=== PATIENT | male | born 1950 | race Caucasian/White ===

== ENCOUNTER 2018-06-25 02:51 | Inpatient (IN) ==
[2018-06-25] MEDS ORDERED: IOPAMIDOL 100 ML BOTTLE IV ONE (02:52)
[2018-06-25] MEDS ORDERED: ONDANSETRON 4 MG/2 ML VIAL IV ONE (03:21)
[2018-06-25 03:58] LABS: Basophils # (Auto) 0 K/mcL (0.0-0.3); Basophils % (Auto) 0.1 % (0.0-2.0); Eosinophils # (Auto) 0 K/mcL (0.0-0.7); Eosinophils % (Auto) 0 % (0.0-7.0); Granulocytes % (Auto) 86.7 % (38.0-78.0); Lymphocytes # (Auto) 1.3 K/mcL (1.5-4.8); Lymphocytes % (Auto) 6.5 % (15.5-49.0); Mean Corpuscular HGB Conc 33.4 g/dL (31.0-36.0); Monocytes # (Auto) 1.4 K/mcL (0.1-0.9); Monocytes % (Auto) 6.7 % (1.0-12.0); Platelet Count 210 K/mcL (140-440); RBC 4.96 M/mcL (4.50-5.90); Red Cell Distribution Width 13.9 % (11.5-14.5)
[2018-06-25] MEDS ORDERED: LACTATED RINGERS 1,000 ML IV ONE ×2 (04:03→05:41)
[2018-06-25 04:18] LABS: ALT/SGPT 32 U/l (0-40); Albumin 4.6 gm/dL (3.2-5.2); Albumin/Globulin Ratio 1.2 (1.0-2.3); Alkaline Phosphatase 69 U/L (39-117); Blood Urea Nitrogen 17 mg/dl (8-23)
[2018-06-25] MEDS ORDERED: PIPERACILLIN SODIUM/TAZOBACTAM 3.375 GM in DEXTROSE 5% IN WATER 50 ML IV ONE (05:25)
[2018-06-25] MEDS ORDERED: HYDROmorphone 2 MG/ML VIAL IV PRN ×3 (05:41→12:12)
--- NOTE | 2018-06-25 07:11 | Emergency Department Note ---
Abdominal Pain HPI - General Chief Complaint: Abdominal Pain Stated Complaint: abdominal pain Time Seen by Provider: 06/25/18 04:01 Source: patient Mode of arrival: ambulatory Limitations: no limitations - History of Present Illness HPI Narrative: This patient has had intermittent colicky right lower quadrant pain for the last couple of days. Last night it became constant and has increased in intensity. He does have appendicitis on his CT scan. Also a number of fecaliths seen in the area of the appendix. - Related Data Allergies Allergy/AdvReac Type Severity Reaction Status Date / Time No Known Drug Allergies Allergy Unverified 06/25/18 02:52 Review of Systems All systems ED: reviewed and negative except as stated. Abdominal Pain PMH - Past Medical History Medical history: Reports: no medical history Surgical history ED: Reports: orthopedic, other (Back surgery) - Social History Smoking status: Never smoker Physical Exam Limitations: no limitations General appearance: alert Head: atraumatic Eye: Present: normal appearance ENT: normal exam Neck: Present: normal inspection Chest: Present: normal inspection Respiratory: Present: normal lung sounds bilaterally Cardiovascular: Present: regular rate, normal rhythm, normal heart sounds Abdominal: Present: soft, tenderness. Absent: distention, guarding, rebound, rigidity Abdominal tenderness: Present: RLQ, moderate Neurological: Present: alert Psychiatric: Present: normal affect Skin: Present: warm, dry Course Vital Signs Temperature 97.4 F 06/25/18 02:52 Pulse Rate 121 H 06/25/18 02:52 Respiratory Rate 19 06/25/18 02:52 Blood Pressure 172/102 06/25/18 02:52 Pulse Oximetry (%) 96 06/25/18 02:52 Temperature 97.4 F 06/25/18 02:52 Pulse Rate 121 H 06/25/18 06:46 Respiratory Rate 26 H 06/25/18 06:46 Blood Pressure 146/77 06/25/18 06:46 Pulse Oximetry (%) 97 06/25/18 06:46 Abdominal Pain - MDM Narrative Medical decision making narrative: This patient has acute appendicitis on CT scan and will be admitted to the hospital for appendectomy. - Lab Data Lab results reviewed: Yes I reviewed the patient's lab results. Result diagrams: 06/25/18 03:25 06/25/18 03:25 Lab Results 06/25/18 06/25/18 Range/Units 03:25 03:25 WBC 20.6 H (4.5-11.0) K/mcL RBC 4.96 (4.50-5.90) M/mcL Hgb 14.9 (13.5-16.5) g/dL Hct 44.7 (41.0-55.0) % MCV 90.0 (80.0-100.0) fL MCH 30.0 (26.0-34.0) pg MCHC 33.4 (31.0-36.0) g/dL RDW 13.9 (11.5-14.5) % Plt Count 210 (140-440) K/mcL MPV 9.4 (7.4-10.4) fL Gran % 86.7 H (38.0-78.0) % Lymph % (Auto) 6.5 L (15.5-49.0) % Charlton % (Auto) 6.7 (1.0-12.0) % Eos % (Auto) 0 (0.0-7.0) % Baso % (Auto) 0.1 (0.0-2.0) % Gran # 17.9 H (1.8-8.0) K/mcL Lymph # (Auto) 1.3 L (1.5-4.8) K/mcL Charlton # (Auto) 1.4 H (0.1-0.9) K/mcL Eos # (Auto) 0 (0.0-0.7) K/mcL Baso # (Auto) 0 (0.0-0.3) K/mcL Sodium 133 (133-145) mmol/L Potassium 3.6 (3.3-5.1) mmol/L Chloride 93 L (96-108) mmol/L Carbon Dioxide 24 (22-30) mmol/L Anion Gap 16.0 (8-16) BUN 17 (8-23) mg/dl Creatinine 1.2 (0.7-1.2) mg/dl GFR Calculation 62 Glucose 230 H (70-105) mg/dL Calcium 9.8 (8.6-10.4) mg/dl Total Bilirubin 1.7 H (0.0-1.0) mg/dL AST 21 (0-37) U/l ALT 32 (0-40) U/l Alkaline Phosphatase 69 (39-117) U/L Total Protein 8.6 H (5.9-8.4) gm/dL Albumin 4.6 (3.2-5.2) gm/dL Globulin 4.0 H (2.2-3.7) gm/dL Albumin/Globulin Ratio 1.2 (1.0-2.3) - Radiology Data Radiology results reviewed: Yes I reviewed the patient's radiology results. Disposition Pt seen by FOOD SELECTOR/PA only: No Clinical Impression: Acute appendicitis Disposition: Xfer As Inpt ([facility]) Condition: Good Referrals: No,PCP [Primary Care Provider] - Time of Disposition: 07:13
--- NOTE | 2018-06-25 07:12 | Cat Scan Report ---
CLINICAL INFORMATION: Right lower quadrant pain COMPARISON: None. TECHNIQUE: Axial images were obtained through the abdomen and pelvis. Sagittally and coronally reformatted images. 80 mL contrast material injected intravenously. Oral contrast material was not given FINDINGS: Acute appendicitis. The appendix is enlarged and measures 18 mm in cross-sectional diameter. There is periappendiceal inflammatory change. There are appendicoliths. Largest appendicolith is at the appendiceal base and measures 9 mm. There are 4 smaller appendicoliths within the appendiceal lumen. There is no extraluminal gas. No definite mural dehiscence. There is no well-defined periappendiceal abscess. Lung bases are negative. No parenchymal consolidation. No pleural fluid. No pericardial fluid. There is dense coronary artery calcification. Low density liver consistent with fatty infiltration. There is a circumscribed 2 cm low-density abnormality in the caudal tip of the right lobe of the liver. This may be a cyst. Ultrasound may be helpful to exclude a solid lesion. No other focal intrahepatic abnormalities. Gallbladder is present. There are multiple calcified gallstones. No pericholecystic fluid. No gallbladder wall thickening. No dilated bile ducts. Negative pancreas. No pancreatic mass. No peripancreatic abnormality. Spleen is negative. No splenomegaly. Adrenal glands are negative. Kidneys are negative. No solid or cystic mass. No hydronephrosis. No hydroureter. There is calcification of the abdominal aorta. No abdominal aortic aneurysm. Lumbar spine, sacrum, pelvis are negative. There is a small right inguinal hernia containing mesenteric fat. Examination was initially interpreted by [facility] IMPRESSION: 1. Acute appendicitis with intraluminal appendicoliths. No periappendiceal abscess or extraluminal gas 2. Cholelithiasis 3. Low density abnormality in the caudal tip of the right lobe of the liver. Ultrasound recommended 4. Atherosclerotic coronary artery disease The exam was performed using radiation dose optimization techniques including, but not limited to, automated exposure control, adjustment of the mA and/or kV according to patient size and use of iterative reconstruction technique. Interpreted and Authenticated by: Wilfredo Anne 06/25/18
[2018-06-25] MEDS ORDERED: LACTATED RINGERS 1,000 ML IV SCH ×2 (07:15→12:15)
[2018-06-25] MEDS: 0.9 % SODIUM CHLORIDE 250 ML IV SCH ×2 (07:27→08:23)
--- NOTE | 2018-06-25 07:29 | General Surg History&Physical ---
History of Present Illness Patient information: Note initiated : 06/25/18 at 7:27 am Service Date, if different from initiated Date: [] Patient: Wesley Villeda a 67 y/o M admitted on for abdominal pain. Chief Complaint: [Abdominal pain] HPI: Mr. Villeda is a 67 year old M with 1 day history of right upper quadrant pain/ 8 -10/10, radiating diffusely in abdomen, associated with nausea and vomiting. first time episode. denies any other symptoms, meidical or surgical history. Review of Systems All systems PM: reviewed and no additional remarkable complaints except as stated (as per HPI) - Constitutional as per HPI - EENT Nose, mouth and throat: as per HPI Past History Past medical history: Denies past medical history Past surgical history: Denies past surgical history Past family history: unknown Past social history: Denies nicotine. lives alone Medications and Allergies Allergies Allergy/AdvReac Type Severity Reaction Status Date / Time No Known Drug Allergies Allergy Unverified 06/25/18 02:52 Exam Temp Pulse Resp BP Pulse Ox 97.4 F 121 H 26 H 146/77 97 06/25/18 02:52 06/25/18 06:46 06/25/18 06:46 06/25/18 06:46 06/25/18 06:46 - General physical appearance well developed, no distress - Eyes PERRL - ENT normal mucosa - Head Head exam IM: Present: atraumatic, normal inspection - Neck trachea midline - Cardiovascular Cardiovascular exam IM: Present: normal rate and rhythm - Respiratory clear to auscultation - Abdomen Abdomen: Present: tender (Distended, +rebound tenderness) Hernia: Present: none - Integumentary Present: no rash - Neurologic Present: normal sensation - Musculoskeletal Present: other (LE +2 pitting edema) - Psychiatric Present: oriented to time, oriented to person, oriented to place Results - Results CT scan - abdomen: image reviewed (Appendicitis with appendicolith, cystic like liver lesion official read pending) Assessment and Plan (1) Acute appendicitis Admit to surgical service for observation OR today for laparoscopic appendectomy NPO IVF ABX Status: Acute
[2018-06-25] MEDS ORDERED: 0.9 % SODIUM CHLORIDE 1,000 ML IV SCH (07:30)
[2018-06-25 08:27] LABS: Appearance,Urine CLEAR; Bilirubin,Urine NEG (NEG); Color,Urine YELLOW; Glucose,Urine (UA) 150 mg/dL (NEG); Leukocyte Esterase,Urine NEG /uL (NEG); Protein,Urine NEG (NEG); Specific Gravity,Urine 1.029 (1.000-1.035); Urine Blood NEG mg/dL (<0.03); Urobilinogen,Urine NEG (NEG)
[2018-06-25] MEDS ORDERED: FAMOTIDINE/PF 20 MG/2 ML VIAL IV SCH (09:00)
[2018-06-25] MEDS ORDERED: PHENYLEPHRINE 10 MG/ML VIAL ONE (11:45)
[2018-06-25] MEDS ORDERED: PROPOFOL 200 MG/20 ML VIAL IV ONE (11:45)
[2018-06-25] MEDS ORDERED: ONDANSETRON 4 MG/2 ML VIAL ONE (11:45)
[2018-06-25] MEDS ORDERED: ESMOLOL 100 MG/10 ML VIAL IV ONE (11:45)
[2018-06-25] MEDS ORDERED: NEOSTIGMINE 1 MG/ML VIAL ONE (11:45)
[2018-06-25] MEDS ORDERED: ROCURONIUM 10 MG/ML ML IV ONE (11:45)
[2018-06-25] MEDS ORDERED: HYDROmorphone 2 MG/ML VIAL ONE (11:45)
[2018-06-25] MEDS ORDERED: GLYCOPYRROLATE 0.2 MG/ML VIAL IV ONE (11:45)
[2018-06-25] MEDS ORDERED: LIDOCAINE HCL/PF 100 MG/5 ML SYRINGE IV ONE (11:45)
[2018-06-25] MEDS ORDERED: MIDAZOLAM 5 MG/5 ML VIAL ONE (11:45)
[2018-06-25] MEDS ORDERED: DEXAMETHASONE 10 MG/ML VIAL ONE (11:45)
[2018-06-25] MEDS ORDERED: fentaNYL 100 MCG/2 ML VIAL IV ONE (11:45)
[2018-06-25] MEDS ORDERED: PIPERACILLIN SODIUM/TAZOBACTAM 3.375 GM in DEXTROSE 5% IN WATER 50 ML IV SCH (12:00)
[2018-06-25] MEDS ORDERED: LACTATED RINGERS 250 ML IV PRN (12:12)
[2018-06-25] MEDS ORDERED: fentaNYL 100 MCG/2 ML VIAL IV PRN (12:12)
[2018-06-25] MEDS ORDERED: MEPERIDINE 50 MG/ML INJECTION IM PRN (12:12)
[2018-06-25] MEDS ORDERED: FLUMAZENIL 0.1 MG/ML ML IV PRN (12:12)
[2018-06-25] MEDS ORDERED: PROMETHAZINE 25 MG/ML VIAL IM PRN (12:12)
[2018-06-25] MEDS ORDERED: BENZOCAINE/MENTHOL 1 LOZENGE PO PRN (12:12)
[2018-06-25] MEDS ORDERED: NALOXONE HCL 0.4 MG/ML VIAL IV PRN (12:12)
[2018-06-25] MEDS ORDERED: MEPERIDINE 25 MG/ML SYRINGE IV PRN (12:12)
[2018-06-25] MEDS ORDERED: ACETAMINOPHEN 1,000 MG/100 ML BOTTLE IV ONE (12:12)
[2018-06-25] MEDS ORDERED: IPRATROPIUM/ALBUTEROL 3 ML AMPUL.NEB NEB PRN (12:12)
[2018-06-25] MEDS ORDERED: ONDANSETRON 4 MG/2 ML VIAL IV PRN (12:12)
[2018-06-25] MEDS ORDERED: BUPIVACAINE W/EPI 0.25% 50 ML VIAL IJ ONE (12:34)
--- NOTE | 2018-06-25 13:39 | Brief Operative Note ---
Date of procedure: 06/25/18 Pre-op diagnosis: Acute appendicitis Post-op diagnosis: other (perforated appendicitis with generalized peritonitis) Procedure: Laparoscopic Appendectomy Grafts/Implants: No Anesthesia: GETA Findings: Perforated appendicitis with generalized peritonitis Complications: none Surgeon: Luís Haley Mammography Technologist: PCP No Estimated blood loss (cc): 20 Specimens Removed/Pathology: other (Appendix, intraabdominal fluid culture) Condition: other (guarded) Disposition: PACU
[2018-06-25] MEDS ORDERED: 0.9 % SODIUM CHLORIDE 10 ML SYRINGE IV SCH (14:00)
[2018-06-25] MEDS: LACTATED RINGERS 1,000 ML IV SCH (14:59)
[2018-06-25] MEDS ORDERED: DEXTROSE 50% 50 ML VIAL IV PRN (15:11)
[2018-06-25] MEDS ORDERED: DEXTROSE 31 GM ORAL.SUSP PO PRN (15:11)
[2018-06-25 15:45] LABS: Hemoglobin A1C 5.4 % HGB (4.0-6.0)
[2018-06-25] MEDS: PIPERACILLIN SODIUM/TAZOBACTAM 3.375 GM in DEXTROSE 5% IN WATER 50 ML IV SCH (17:14)
[2018-06-25] MEDS: INSULIN LISPRO 1 UNIT/0.01 ML UNIT SQ SCH (17:20)
[2018-06-25] MEDS ORDERED: ENOXAPARIN 40 MG/0.4 ML SYRINGE SQ SCH (21:00)
[2018-06-25] MEDS: ENOXAPARIN 40 MG/0.4 ML SYRINGE SQ SCH (21:15)
[2018-06-25] MEDS: FAMOTIDINE/PF 20 MG/2 ML VIAL IV SCH (21:15)
[2018-06-25] MEDS: ACETAMINOPHEN 1,000 MG/100 ML BOTTLE IV SCH (21:16)
[2018-06-25] MEDS: 0.9 % SODIUM CHLORIDE 10 ML SYRINGE IV SCH (22:14)
[2018-06-26] MEDS: PIPERACILLIN SODIUM/TAZOBACTAM 3.375 GM in DEXTROSE 5% IN WATER 50 ML IV SCH ×4 (00:18→17:19)
[2018-06-26] MEDS: LACTATED RINGERS 1,000 ML IV SCH ×3 (00:18→22:06)
[2018-06-26] MEDS: INSULIN LISPRO 1 UNIT/0.01 ML UNIT SQ SCH ×5 (00:24→21:45)
[2018-06-26] MEDS: HYDROmorphone 2 MG/ML VIAL IV PRN ×3 (03:37→19:59)
[2018-06-26] MEDS: 0.9 % SODIUM CHLORIDE 10 ML SYRINGE IV SCH ×3 (05:32→21:48)
[2018-06-26 06:32] LABS: Basophils # (Auto) 0 K/mcL (0.0-0.3); Basophils % (Auto) 0 % (0.0-2.0); Eosinophils # (Auto) 0 K/mcL (0.0-0.7); Eosinophils % (Auto) 0 % (0.0-7.0); Granulocytes % (Auto) 88.3 % (38.0-78.0); Lymphocytes # (Auto) 0.6 K/mcL (1.5-4.8); Lymphocytes % (Auto) 5.2 % (15.5-49.0); Mean Cell Volume 90.6 fL (80.0-100.0); Mean Corpuscular HGB Conc 33.5 g/dL (31.0-36.0); Monocytes # (Auto) 0.8 K/mcL (0.1-0.9); Monocytes % (Auto) 6.5 % (1.0-12.0); Platelet Count 137 K/mcL (140-440); RBC 4.07 M/mcL (4.50-5.90); Red Cell Distribution Width 14.2 % (11.5-14.5)
[2018-06-26 06:58] LABS: ALT/SGPT 19 U/l (0-40); Albumin 3.2 gm/dL (3.2-5.2); Albumin/Globulin Ratio 0.9 (1.0-2.3); Alkaline Phosphatase 49 U/L (39-117); Blood Urea Nitrogen 14 mg/dl (8-23)
[2018-06-26] MEDS ORDERED: oxyCODONE/APAP 5/325MG TABLET PO PRN (07:40)
--- NOTE | 2018-06-26 08:34 | General Surgery Progress Note ---
Subjective Patient reports: no new complaints (Patient seen post op doing well. Fever decreased to 99.4F, good urine output) Narrative: Note initiated : 06/26/18 at 8:31 am Service Date, if different from initiated Date: [] Patient: Wesley Villeda 67 y/o M admitted on 06/25/18 for Laparoscopic Appendectomy Possible Open. Chief Complaint: Abdominal pain Postop Day#0 Pertinent ROS: Pain well controlled, no n/v Objective Temp Pulse Resp BP Pulse Ox 98.6 F 75 18 136/79 92 06/26/18 07:06 06/26/18 03:42 06/26/18 07:06 06/26/18 07:06 06/26/18 07:06 - Additional Data Intake & Output - Last 24 hours: Intake & Output 06/24/18 06/25/18 06/26/18 06/27/18 05:59 05:59 05:59 05:59 Intake Total 1000 / 1000 4980 / 4980 Output Total 3940 / 3940 Balance 1000 / 1000 1040 / 1040 Weight 236 lb 225 lb - General physical appearance well developed, well nourished, no distress - ENT no congestion - Neck trachea midline - Respiratory clear to auscultation - Cardiovascular Cardiovascular exam: Present: normal rate and rhythm - Abdomen soft (Appropriate TTP at surgical sites. CECILIA drain with serosanguenous output) - Integumentary no rash - Neurologic normal sensation - Additional Exam B/L LE etremity edema +2 ankles - Labs 06/26/18 04:43 06/26/18 04:43 Diabetes panel 06/25/18 06/26/18 Range/Units 03:25 04:43 Sodium 141 (133-145) mmol/L Potassium 4.2 (3.3-5.1) mmol/L Chloride 107 (96-108) mmol/L Carbon Dioxide 26 (22-30) mmol/L BUN 14 (8-23) mg/dl Creatinine 1.1 (0.7-1.2) mg/dl Glucose 160 H (70-105) mg/dL Hemoglobin A1c 5.4 (4.0-6.0) % HGB Calcium 8.9 (8.6-10.4) mg/dl AST 14 (0-37) U/l ALT 19 (0-40) U/l Alkaline Phosphatase 49 (39-117) U/L Total Protein 6.6 (5.9-8.4) gm/dL Albumin 3.2 (3.2-5.2) gm/dL Calcium panel 06/26/18 Range/Units 04:43 Calcium 8.9 (8.6-10.4) mg/dl Phosphorus 2.0 L (2.7-4.5) mg/dL Albumin 3.2 (3.2-5.2) gm/dL Pituitary panel 06/26/18 Range/Units 04:43 Sodium 141 (133-145) mmol/L Potassium 4.2 (3.3-5.1) mmol/L Chloride 107 (96-108) mmol/L Carbon Dioxide 26 (22-30) mmol/L BUN 14 (8-23) mg/dl Creatinine 1.1 (0.7-1.2) mg/dl Glucose 160 H (70-105) mg/dL Calcium 8.9 (8.6-10.4) mg/dl Adrenal panel 06/26/18 Range/Units 04:43 Sodium 141 (133-145) mmol/L Potassium 4.2 (3.3-5.1) mmol/L Chloride 107 (96-108) mmol/L Carbon Dioxide 26 (22-30) mmol/L BUN 14 (8-23) mg/dl Creatinine 1.1 (0.7-1.2) mg/dl Glucose 160 H (70-105) mg/dL Calcium 8.9 (8.6-10.4) mg/dl Total Bilirubin 1.1 H (0.0-1.0) mg/dL AST 14 (0-37) U/l ALT 19 (0-40) U/l Alkaline Phosphatase 49 (39-117) U/L Total Protein 6.6 (5.9-8.4) gm/dL Albumin 3.2 (3.2-5.2) gm/dL Assessment and Plan (1) Acute appendicitis with perforation and generalized peritonitis Status: Acute Current Visit: Yes (2) Acute appendicitis Status: Acute Current Visit: Yes - Narrative A/P Narrative: 67 yo male POD#0 for laparoscopic appendectomy for perforated appendicitis with generalized peritonitis. Admit to surgical service NPO today Continue IV ABX IV fluids Hogue for hemodynamic monitoring DVT prophylaxis Am labs - Time Spent With Patient Total time spent is greater than 50% in coordination of care (as documented) at patient's floor/unit and/or counseling patient:
--- NOTE | 2018-06-26 08:42 | General Surgery Progress Note ---
Subjective Patient reports: no new complaints Narrative: Note initiated : 06/26/18 at 8:40 am Service Date, if different from initiated Date: [] Patient: Wesley Villeda 67 y/o M admitted on 06/25/18 for acute appendicitis POD#1 for laparoscopic appendectomy Pertinent ROS: Denies N/V/D, no F/C/NS, denies SOB, abdominal pain improved from yesterday. Objective Temp Pulse Resp BP Pulse Ox 98.6 F 75 18 136/79 92 06/26/18 07:06 06/26/18 03:42 06/26/18 07:06 06/26/18 07:06 06/26/18 07:06 - Additional Data Intake & Output - Last 24 hours: Intake & Output 06/24/18 06/25/18 06/26/18 06/27/18 05:59 05:59 05:59 05:59 Intake Total 1000 / 1000 4980 / 4980 Output Total 3940 / 3940 Balance 1000 / 1000 1040 / 1040 Weight 236 lb 225 lb - General physical appearance well developed, well nourished, no distress - Eyes normal ocular movement - ENT normal mucosa - Neck trachea midline - Respiratory clear to auscultation - Cardiovascular Cardiovascular exam: Present: normal rate and rhythm - Abdomen soft (+BS, soft, appropriate TTP at surgical site. CECILIA drain serosanguenous output.) - Genitourinary normal penis with no external lesions - Integumentary no rash - Additional Exam Lower Extremities: B/L LE EDEMA ankles B/L, non tender calves - Labs 06/26/18 04:43 06/26/18 04:43 Diabetes panel 06/25/18 06/26/18 Range/Units 03:25 04:43 Sodium 141 (133-145) mmol/L Potassium 4.2 (3.3-5.1) mmol/L Chloride 107 (96-108) mmol/L Carbon Dioxide 26 (22-30) mmol/L BUN 14 (8-23) mg/dl Creatinine 1.1 (0.7-1.2) mg/dl Glucose 160 H (70-105) mg/dL Hemoglobin A1c 5.4 (4.0-6.0) % HGB Calcium 8.9 (8.6-10.4) mg/dl AST 14 (0-37) U/l ALT 19 (0-40) U/l Alkaline Phosphatase 49 (39-117) U/L Total Protein 6.6 (5.9-8.4) gm/dL Albumin 3.2 (3.2-5.2) gm/dL Calcium panel 06/26/18 Range/Units 04:43 Calcium 8.9 (8.6-10.4) mg/dl Phosphorus 2.0 L (2.7-4.5) mg/dL Albumin 3.2 (3.2-5.2) gm/dL Pituitary panel 06/26/18 Range/Units 04:43 Sodium 141 (133-145) mmol/L Potassium 4.2 (3.3-5.1) mmol/L Chloride 107 (96-108) mmol/L Carbon Dioxide 26 (22-30) mmol/L BUN 14 (8-23) mg/dl Creatinine 1.1 (0.7-1.2) mg/dl Glucose 160 H (70-105) mg/dL Calcium 8.9 (8.6-10.4) mg/dl Adrenal panel 06/26/18 Range/Units 04:43 Sodium 141 (133-145) mmol/L Potassium 4.2 (3.3-5.1) mmol/L Chloride 107 (96-108) mmol/L Carbon Dioxide 26 (22-30) mmol/L BUN 14 (8-23) mg/dl Creatinine 1.1 (0.7-1.2) mg/dl Glucose 160 H (70-105) mg/dL Calcium 8.9 (8.6-10.4) mg/dl Total Bilirubin 1.1 H (0.0-1.0) mg/dL AST 14 (0-37) U/l ALT 19 (0-40) U/l Alkaline Phosphatase 49 (39-117) U/L Total Protein 6.6 (5.9-8.4) gm/dL Albumin 3.2 (3.2-5.2) gm/dL Assessment and Plan (1) Acute appendicitis with perforation and generalized peritonitis Status: Acute Current Visit: Yes (2) Acute appendicitis Status: Acute Current Visit: Yes - Narrative A/P Narrative: 67 yo male POD#1 for laparoscopic appendectomy for perforated appendicitis with generalized peritonitis. Clears today Continue Incentive spirometry Continue IV ABX continue CECILIA drain D/C carrion Am labs DVT prophylaxis ambulate as tolerated - Time Spent With Patient Total time spent is greater than 50% in coordination of care (as documented) at patient's floor/unit and/or counseling patient:
[2018-06-26] MEDS: ACETAMINOPHEN 1,000 MG/100 ML BOTTLE IV SCH ×2 (08:57→21:47)
[2018-06-26] MEDS: NEUTRA PHOS 1 PACKET PO SCH ×2 (08:57→22:07)
[2018-06-26] MEDS: FAMOTIDINE/PF 20 MG/2 ML VIAL IV SCH ×2 (08:57→21:46)
[2018-06-26] MEDS: ENOXAPARIN 40 MG/0.4 ML SYRINGE SQ SCH (08:59)
[2018-06-26] MEDS ORDERED: PNEUMOCOCCAL 23-VAL P-SAC VAC 0.5 ML SYRINGE IM ONE (10:00)
--- NOTE | 2018-06-26 11:08 | Surgical Pathology Report ---
HISTOLOGY SPECIMEN MICROSCOPIC DIAGNOSIS APPENDIX, APPENDECTOMY: -- PERFORATED ACUTE APPENDICITIS WITH SEROSITIS. (DMT:adj) PROCEDURAL IMPRESSION Appendicitis with appendicolith. GROSS DESCRIPTION Received in formalin labeled appendix, is a red-wick appendix, which measures up to 1.2 cm in diameter and 8 cm long with attached wick adipose tissue up to 2.5 cm wide. A section through the tip reveals fibrinopurulent material. 5.5 cm from the resection margin, is an area of disruption, which may represent an area of perforation, this ragged defect is 0.8 cm long. There are also small amounts of dark red-brown blood within the lumen. [employer] sections - one cassette. (RAD:ramya) Electronically Signed by: Nikolas Peterson M.D.
[2018-06-26] MEDS ORDERED: ONDANSETRON 4 MG/2 ML VIAL ONE (14:19)
--- NOTE | 2018-06-26 14:44 | General Surgery Progress Note ---
Subjective Patient reports: pain is less (Patient seen at bedside. Hogue removed earlier has not voided yet. Pain mostly under control. Fluid leaking around CECILIA drain. serosanguenous) Narrative: Note initiated : 06/26/18 at 2:42 pm Service Date, if different from initiated Date: [] Patient: Wesley Villeda 67 y/o M admitted on 06/25/18 for Laparoscopic Appendectomy Possible Open. Chief Complaint: [] Pertinent ROS: + Nausea, no vomiting. Denies F/C/NS, minimal abdominal pain Objective Temp Pulse Resp BP Pulse Ox 98.3 F 95 H 20 146/84 94 06/26/18 12:00 06/26/18 12:00 06/26/18 12:00 06/26/18 12:00 06/26/18 12:00 - Additional Data Intake & Output - Last 24 hours: Intake & Output 06/24/18 06/25/18 06/26/18 06/27/18 05:59 05:59 05:59 05:59 Intake Total 1000 / 1000 5080 / 5080 1200 / 1200 Output Total 3940 / 3940 250 / 250 Balance 1000 / 1000 1140 / 1140 950 / 950 Weight 236 lb 225 lb 225 lb - General physical appearance well nourished, no distress - Respiratory normal respiratory effort, clear to auscultation - Cardiovascular Cardiovascular exam: Present: normal rate and rhythm - Abdomen soft (Distended, appropriated post op tenderness. No rebound or guarding. CECILIA drain milked. Serosanguenous output around dressing.) - Labs 06/26/18 04:43 06/26/18 04:43 Diabetes panel 06/25/18 06/26/18 Range/Units 03:25 04:43 Sodium 141 (133-145) mmol/L Potassium 4.2 (3.3-5.1) mmol/L Chloride 107 (96-108) mmol/L Carbon Dioxide 26 (22-30) mmol/L BUN 14 (8-23) mg/dl Creatinine 1.1 (0.7-1.2) mg/dl Glucose 160 H (70-105) mg/dL Hemoglobin A1c 5.4 (4.0-6.0) % HGB Calcium 8.9 (8.6-10.4) mg/dl AST 14 (0-37) U/l ALT 19 (0-40) U/l Alkaline Phosphatase 49 (39-117) U/L Total Protein 6.6 (5.9-8.4) gm/dL Albumin 3.2 (3.2-5.2) gm/dL Calcium panel 06/26/18 Range/Units 04:43 Calcium 8.9 (8.6-10.4) mg/dl Phosphorus 2.0 L (2.7-4.5) mg/dL Albumin 3.2 (3.2-5.2) gm/dL Pituitary panel 06/26/18 Range/Units 04:43 Sodium 141 (133-145) mmol/L Potassium 4.2 (3.3-5.1) mmol/L Chloride 107 (96-108) mmol/L Carbon Dioxide 26 (22-30) mmol/L BUN 14 (8-23) mg/dl Creatinine 1.1 (0.7-1.2) mg/dl Glucose 160 H (70-105) mg/dL Calcium 8.9 (8.6-10.4) mg/dl Adrenal panel 06/26/18 Range/Units 04:43 Sodium 141 (133-145) mmol/L Potassium 4.2 (3.3-5.1) mmol/L Chloride 107 (96-108) mmol/L Carbon Dioxide 26 (22-30) mmol/L BUN 14 (8-23) mg/dl Creatinine 1.1 (0.7-1.2) mg/dl Glucose 160 H (70-105) mg/dL Calcium 8.9 (8.6-10.4) mg/dl Total Bilirubin 1.1 H (0.0-1.0) mg/dL AST 14 (0-37) U/l ALT 19 (0-40) U/l Alkaline Phosphatase 49 (39-117) U/L Total Protein 6.6 (5.9-8.4) gm/dL Albumin 3.2 (3.2-5.2) gm/dL Assessment and Plan (1) Acute appendicitis with perforation and generalized peritonitis Status: Acute Current Visit: Yes (2) Acute appendicitis Status: Acute Current Visit: Yes - Narrative A/P Narrative: 67 yo male POD#1 for laparoscopic appendectomy for perforated appendicitis with generalized peritonitis. Will make NPO except meds/ ice chips Continue Incentive spirometry Continue IV ABX continue CECILIA drain Hogue replace if has not voided within 8 hours post removal Echo for fluid status and EF. Am labs DVT prophylaxis ambulate as tolerated - Time Spent With Patient Total time spent is greater than 50% in coordination of care (as documented) at patient's floor/unit and/or counseling patient:
[2018-06-26] MEDS: METOCLOPRAMIDE 10 MG/2 ML VIAL IV SCH ×2 (15:05→21:46)
[2018-06-26] MEDS ORDERED: hydrALAZINE 20 MG/ML VIAL IV PRN (18:36)
[2018-06-26] MEDS ORDERED: 0.9 % SODIUM CHLORIDE 500 ML IV ONE (18:38)
--- NOTE | 2018-06-26 18:43 | General Surgery Progress Note ---
Subjective Patient reports: other (Patient did not void within 8 hours of removing carrion so carrion placed. Patient states pain around a 5/10 no other events reported.) Narrative: Note initiated : 06/26/18 at 6:40 pm Service Date, if different from initiated Date: [] Patient: Wesley Villeda 67 y/o M admitted on 06/25/18 for Laparoscopic Appendectomy Possible Open. Chief Complaint: [] Objective Temp Pulse Resp BP Pulse Ox 98.5 F 95 H 20 162/92 93 06/26/18 16:00 06/26/18 12:00 06/26/18 16:00 06/26/18 16:00 06/26/18 16:00 - Additional Data Intake & Output - Last 24 hours: Intake & Output 06/24/18 06/25/18 06/26/18 06/27/18 05:59 05:59 05:59 05:59 Intake Total 1000 / 1000 5080 / 5080 1475 / 1475 Output Total 3940 / 3940 270 / 270 Balance 1000 / 1000 1140 / 1140 1205 / 1205 Weight 236 lb 225 lb 225 lb - General physical appearance well developed, well nourished, no distress - Neck trachea midline - Respiratory normal expansion - Cardiovascular Cardiovascular exam: Present: normal rate and rhythm - Abdomen soft (TTP appropriate. no rebound or guarding. CECILIA in place. Carrion in place.) - Labs 06/26/18 04:43 06/26/18 04:43 Diabetes panel 06/26/18 Range/Units 04:43 Sodium 141 (133-145) mmol/L Potassium 4.2 (3.3-5.1) mmol/L Chloride 107 (96-108) mmol/L Carbon Dioxide 26 (22-30) mmol/L BUN 14 (8-23) mg/dl Creatinine 1.1 (0.7-1.2) mg/dl Glucose 160 H (70-105) mg/dL Calcium 8.9 (8.6-10.4) mg/dl AST 14 (0-37) U/l ALT 19 (0-40) U/l Alkaline Phosphatase 49 (39-117) U/L Total Protein 6.6 (5.9-8.4) gm/dL Albumin 3.2 (3.2-5.2) gm/dL Calcium panel 06/26/18 Range/Units 04:43 Calcium 8.9 (8.6-10.4) mg/dl Phosphorus 2.0 L (2.7-4.5) mg/dL Albumin 3.2 (3.2-5.2) gm/dL Pituitary panel 06/26/18 Range/Units 04:43 Sodium 141 (133-145) mmol/L Potassium 4.2 (3.3-5.1) mmol/L Chloride 107 (96-108) mmol/L Carbon Dioxide 26 (22-30) mmol/L BUN 14 (8-23) mg/dl Creatinine 1.1 (0.7-1.2) mg/dl Glucose 160 H (70-105) mg/dL Calcium 8.9 (8.6-10.4) mg/dl Adrenal panel 06/26/18 Range/Units 04:43 Sodium 141 (133-145) mmol/L Potassium 4.2 (3.3-5.1) mmol/L Chloride 107 (96-108) mmol/L Carbon Dioxide 26 (22-30) mmol/L BUN 14 (8-23) mg/dl Creatinine 1.1 (0.7-1.2) mg/dl Glucose 160 H (70-105) mg/dL Calcium 8.9 (8.6-10.4) mg/dl Total Bilirubin 1.1 H (0.0-1.0) mg/dL AST 14 (0-37) U/l ALT 19 (0-40) U/l Alkaline Phosphatase 49 (39-117) U/L Total Protein 6.6 (5.9-8.4) gm/dL Albumin 3.2 (3.2-5.2) gm/dL Assessment and Plan (1) Acute appendicitis with perforation and generalized peritonitis Status: Acute Current Visit: Yes (2) Acute appendicitis Status: Acute Current Visit: Yes - Narrative A/P Narrative: 67 yo male POD#1 for laparoscopic appendectomy for perforated appendicitis with generalized peritonitis. Continue NPO except meds/ ice chips Continue Incentive spirometry Continue IV ABX continue CECILIA drain Carrion replaced for hemodynamic monitoring and possible urinary retention Echo official report to follow prelim EF 55% will add toradol for pain Hydralazine prn Am labs DVT prophylaxis ambulate as tolerated - Time Spent With Patient Total time spent is greater than 50% in coordination of care (as documented) at patient's floor/unit and/or counseling patient:
[2018-06-26] MEDS: ONDANSETRON 4 MG/2 ML VIAL IV PRN (20:21)
[2018-06-26] MEDS: KETOROLAC 15 MG/ML VIAL IV SCH (21:45)
[2018-06-27] MEDS: PIPERACILLIN SODIUM/TAZOBACTAM 3.375 GM in DEXTROSE 5% IN WATER 50 ML IV SCH ×5 (00:02→23:39)
[2018-06-27] MEDS: LACTATED RINGERS 1,000 ML IV SCH ×2 (00:44→08:16)
[2018-06-27] MEDS: HYDROmorphone 2 MG/ML VIAL IV PRN ×2 (04:23→20:13)
[2018-06-27] MEDS: ONDANSETRON 4 MG/2 ML VIAL IV PRN (04:23)
[2018-06-27 05:33] LABS: Basophils # (Auto) 0 K/mcL (0.0-0.3); Basophils % (Auto) 0.3 % (0.0-2.0); Eosinophils # (Auto) 0 K/mcL (0.0-0.7); Eosinophils % (Auto) 0.2 % (0.0-7.0); Granulocytes % (Auto) 87.1 % (38.0-78.0); Lymphocytes # (Auto) 0.9 K/mcL (1.5-4.8); Lymphocytes % (Auto) 7.3 % (15.5-49.0); Mean Cell Volume 91.5 fL (80.0-100.0); Mean Corpuscular HGB Conc 33.3 g/dL (31.0-36.0); Monocytes # (Auto) 0.6 K/mcL (0.1-0.9); Monocytes % (Auto) 5.1 % (1.0-12.0); Platelet Count 176 K/mcL (140-440); RBC 4.66 M/mcL (4.50-5.90); Red Cell Distribution Width 14.3 % (11.5-14.5)
[2018-06-27] MEDS: METOCLOPRAMIDE 10 MG/2 ML VIAL IV SCH ×3 (05:55→22:20)
[2018-06-27] MEDS: KETOROLAC 15 MG/ML VIAL IV SCH ×3 (05:55→22:19)
[2018-06-27 06:00] LABS: ALT/SGPT 18 U/l (0-40); Albumin 3.4 gm/dL (3.2-5.2); Albumin/Globulin Ratio 0.9 (1.0-2.3); Alkaline Phosphatase 56 U/L (39-117); Blood Urea Nitrogen 24 mg/dl (8-23)
[2018-06-27] MEDS: 0.9 % SODIUM CHLORIDE 10 ML SYRINGE IV SCH ×3 (06:26→22:20)
[2018-06-27] MEDS: INSULIN LISPRO 1 UNIT/0.01 ML UNIT SQ SCH ×4 (06:33→20:12)
[2018-06-27] MEDS ORDERED: 0.9 % SODIUM CHLORIDE 500 ML IV ONE (07:51)
[2018-06-27] MEDS: ENOXAPARIN 40 MG/0.4 ML SYRINGE SQ SCH (08:14)
[2018-06-27] MEDS: FAMOTIDINE/PF 20 MG/2 ML VIAL IV SCH ×2 (08:14→20:13)
[2018-06-27] MEDS: NEUTRA PHOS 1 PACKET PO SCH ×2 (08:19→20:12)
--- NOTE | 2018-06-27 08:27 | General Surgery Progress Note ---
Subjective Patient reports: pain is less (Patient states vomited yesterday none today. No nausea today. No Flatus. Hogue with adequate output ~50mL/kg/hr. SUSIE drain site leaking around susie. no other events reported.) Narrative: Note initiated : 06/27/18 at 8:24 am Service Date, if different from initiated Date: [] 67 yo male POD#2 for laparoscopic appendectomy for perforated appendicitis with generalized peritonitis. Chief Complaint: [] Pertinent ROS: no current N/V/D, no F/C/NS Objective Temp Pulse Resp BP Pulse Ox 99 F 90 18 134/79 96 06/27/18 04:00 06/27/18 04:00 06/27/18 04:00 06/27/18 04:00 06/27/18 04:00 - Additional Data Intake & Output - Last 24 hours: Intake & Output 06/25/18 06/26/18 06/27/18 06/28/18 05:59 05:59 05:59 05:59 Intake Total 1000 / 1000 5080 / 5080 2855 / 2855 1650 / 1650 Output Total 3940 / 3940 1000 / 1000 Balance 1000 / 1000 1140 / 1140 1855 / 1855 1650 / 1650 Weight 236 lb 225 lb 238 lb - General physical appearance well developed, no distress - Respiratory clear to auscultation - Cardiovascular Cardiovascular exam: Present: normal rate and rhythm - Abdomen soft, non tender (Soft, NT, distended, no rebound or guarding. SUSIE with protective ostomy bag over it with serous drainage. Hogue with barboza urine) - Integumentary no rash - Psychiatric oriented to time, oriented to person, oriented to place - Additional Exam LE; B/L LE edema +2 unchanged from previous - Labs 06/27/18 04:38 06/27/18 04:38 Diabetes panel 06/27/18 Range/Units 04:38 Sodium 139 (133-145) mmol/L Potassium 3.9 (3.3-5.1) mmol/L Chloride 101 (96-108) mmol/L Carbon Dioxide 27 (22-30) mmol/L BUN 24 H (8-23) mg/dl Creatinine 1.2 (0.7-1.2) mg/dl Glucose 169 H (70-105) mg/dL Calcium 9.2 (8.6-10.4) mg/dl AST 14 (0-37) U/l ALT 18 (0-40) U/l Alkaline Phosphatase 56 (39-117) U/L Total Protein 7.3 (5.9-8.4) gm/dL Albumin 3.4 (3.2-5.2) gm/dL Calcium panel 06/27/18 Range/Units 04:38 Calcium 9.2 (8.6-10.4) mg/dl Phosphorus 2.0 L (2.7-4.5) mg/dL Albumin 3.4 (3.2-5.2) gm/dL Pituitary panel 06/27/18 Range/Units 04:38 Sodium 139 (133-145) mmol/L Potassium 3.9 (3.3-5.1) mmol/L Chloride 101 (96-108) mmol/L Carbon Dioxide 27 (22-30) mmol/L BUN 24 H (8-23) mg/dl Creatinine 1.2 (0.7-1.2) mg/dl Glucose 169 H (70-105) mg/dL Calcium 9.2 (8.6-10.4) mg/dl Adrenal panel 06/27/18 Range/Units 04:38 Sodium 139 (133-145) mmol/L Potassium 3.9 (3.3-5.1) mmol/L Chloride 101 (96-108) mmol/L Carbon Dioxide 27 (22-30) mmol/L BUN 24 H (8-23) mg/dl Creatinine 1.2 (0.7-1.2) mg/dl Glucose 169 H (70-105) mg/dL Calcium 9.2 (8.6-10.4) mg/dl Total Bilirubin 0.8 (0.0-1.0) mg/dL AST 14 (0-37) U/l ALT 18 (0-40) U/l Alkaline Phosphatase 56 (39-117) U/L Total Protein 7.3 (5.9-8.4) gm/dL Albumin 3.4 (3.2-5.2) gm/dL Assessment and Plan (1) Acute appendicitis with perforation and generalized peritonitis Status: Acute Current Visit: Yes (2) Acute appendicitis Status: Acute Current Visit: Yes - Narrative A/P Narrative: 67 yo male POD#2 for laparoscopic appendectomy for perforated appendicitis with generalized peritonitis. Continue NPO except meds/ ice chips Continue Incentive spirometry Continue IV ABX Continue SUSIE drain Continue Hogue for hemodynamic monitoring and possible urinary retention DVT prophylaxis ambulate as tolerated PT eval appreciated. Social work planning Am labs - Time Spent With Patient Total time spent is greater than 50% in coordination of care (as documented) at patient's floor/unit and/or counseling patient:
[2018-06-27] MEDS: DEXTROSE 5%-1/2NS W/10MEQ KCL 1,000 ML IV SCH ×4 (08:47→23:34)
[2018-06-27] MEDS: ACETAMINOPHEN 1,000 MG/100 ML BOTTLE IV SCH (08:47)
--- NOTE | 2018-06-27 20:55 | General Surgery Progress Note ---
Subjective Narrative: Note initiated : 06/27/18 at 8:53 pm Service Date, if different from initiated Date: [] Patient: 67 yo male POD#2 for laparoscopic appendectomy for perforated appendicitis with generalized peritonitis. Pertinent ROS: + mild SOB and B/L leg pain, no F/C/NS, no chest pain Objective Temp Pulse Resp BP Pulse Ox 97.9 F 95 H 16 144/92 92 06/27/18 19:31 06/27/18 19:31 06/27/18 19:31 06/27/18 19:31 06/27/18 19:34 - Additional Data Intake & Output - Last 24 hours: Intake & Output 06/25/18 06/26/18 06/27/18 06/28/18 05:59 05:59 05:59 05:59 Intake Total 1000 / 1000 5080 / 5080 2855 / 2855 3480 / 3480 Output Total 3940 / 3940 1000 / 1000 600 / 600 Balance 1000 / 1000 1140 / 1140 1855 / 1855 2880 / 2880 Weight 236 lb 225 lb 238 lb 231 lb - General physical appearance no distress, severe distress - Neck trachea midline - Respiratory clear to auscultation - Cardiovascular Cardiovascular exam: Present: normal rate and rhythm - Abdomen soft (Distended, nontender, no rebound or guarding. CECILIA drain with serous fluid. Hogue with yellow urine) - Additional Exam B/L LE calf tenderness upon palpation - Labs 06/27/18 04:38 06/27/18 04:38 Diabetes panel 06/27/18 Range/Units 04:38 Sodium 139 (133-145) mmol/L Potassium 3.9 (3.3-5.1) mmol/L Chloride 101 (96-108) mmol/L Carbon Dioxide 27 (22-30) mmol/L BUN 24 H (8-23) mg/dl Creatinine 1.2 (0.7-1.2) mg/dl Glucose 169 H (70-105) mg/dL Calcium 9.2 (8.6-10.4) mg/dl AST 14 (0-37) U/l ALT 18 (0-40) U/l Alkaline Phosphatase 56 (39-117) U/L Total Protein 7.3 (5.9-8.4) gm/dL Albumin 3.4 (3.2-5.2) gm/dL Calcium panel 06/27/18 Range/Units 04:38 Calcium 9.2 (8.6-10.4) mg/dl Phosphorus 2.0 L (2.7-4.5) mg/dL Albumin 3.4 (3.2-5.2) gm/dL Pituitary panel 06/27/18 Range/Units 04:38 Sodium 139 (133-145) mmol/L Potassium 3.9 (3.3-5.1) mmol/L Chloride 101 (96-108) mmol/L Carbon Dioxide 27 (22-30) mmol/L BUN 24 H (8-23) mg/dl Creatinine 1.2 (0.7-1.2) mg/dl Glucose 169 H (70-105) mg/dL Calcium 9.2 (8.6-10.4) mg/dl Adrenal panel 06/27/18 Range/Units 04:38 Sodium 139 (133-145) mmol/L Potassium 3.9 (3.3-5.1) mmol/L Chloride 101 (96-108) mmol/L Carbon Dioxide 27 (22-30) mmol/L BUN 24 H (8-23) mg/dl Creatinine 1.2 (0.7-1.2) mg/dl Glucose 169 H (70-105) mg/dL Calcium 9.2 (8.6-10.4) mg/dl Total Bilirubin 0.8 (0.0-1.0) mg/dL AST 14 (0-37) U/l ALT 18 (0-40) U/l Alkaline Phosphatase 56 (39-117) U/L Total Protein 7.3 (5.9-8.4) gm/dL Albumin 3.4 (3.2-5.2) gm/dL Assessment and Plan (1) Acute appendicitis with perforation and generalized peritonitis Status: Acute Current Visit: Yes (2) Acute appendicitis Status: Acute Current Visit: Yes - Narrative A/P Narrative: 67 yo male POD#2 for laparoscopic appendectomy for perforated appendicitis with generalized peritonitis. Patient with new onset SOB on DVT prophylaxis, with B/L LE calf pain. Likely atelectasis, however will r/o DVT & PE Continue all other medications - Time Spent With Patient Total time spent is greater than 50% in coordination of care (as documented) at patient's floor/unit and/or counseling patient:
[2018-06-27] MEDS ORDERED: IOPAMIDOL 100 ML BOTTLE IV ONE (22:24)
[2018-06-27] MEDS ORDERED: ENOXAPARIN 100 MG/ML SYRINGE SQ SCH (23:03)
[2018-06-27] MEDS ORDERED: DEXTROSE 50% 50 ML VIAL IV PRN (23:30)
[2018-06-27] MEDS ORDERED: DEXTROSE 31 GM ORAL.SUSP PO PRN (23:30)
[2018-06-27] MEDS ORDERED: hydrALAZINE 20 MG/ML VIAL IV PRN (23:30)
[2018-06-27] MEDS ORDERED: IPRATROPIUM/ALBUTEROL 3 ML AMPUL.NEB NEB SCH (23:30)
[2018-06-27] MEDS ORDERED: oxyCODONE/APAP 5/325MG TABLET PO PRN (23:30)
--- NOTE | 2018-06-27 23:30 | Internal Medicine Consult Note ---
Medical - CN: HPI - Data of Consult Consult date: 06/27/18 Requesting Physician: Luís Haley DO Primary Care Provider: PCP No - Consult Narrative History of present illness: Mr. Villeda is a 67 year old M Who presented with abdominal pain with associated nausea vomiting on the and found to have acute appendicitis. He had surgery the same day and underwent laparoscopic appendectomy and found to have a perforated appendicitis Intra-Op with generalized peritonitis. Postoperatively his bowels are slow to function and having urinary retention thus a Hogue was placed. He has been belching but has not been having any bowel movements or flatus. The he reported some mild shortness of breath but otherwise no new complaints. Later in the day nurse noticed him to be more labored on room air even though the patient did not particularly feel short of breath. His vital signs are taken as oxygen saturation was 88% on room air. Stat CTA of the chest was done which showed scattered pulmonary emboli in the right upper lobe. His heart rate remains in the 90s which is what he's typically been since he is been here. Blood pressure remained stable. The CTA report no cardiac strain. Patient will be moved to the unit for close monitoring and placed on therapeutic Lovenox. In speaking with the patient he denies any shortness of breath at this time and is without chest pain. He has some mild abdominal pain over the incision site but otherwise no other complaints. No coughing. Review of Systems: Pertinent positives as above . denies headache/fever/chills/nausea/vomiting/ chest pain/cough/diarrhea. Remaining 10 point review of systems reviewed negative CC: Luís Haley DO Medical - CN: [facility] Medical history: Past surgical history: None Past medical history: None Family history: Mother with kidney cancer Father with Alzheimer's Social history: Patient quit smoking in 1989 denies alcohol use lives at home with family Medical - CN: Meds Home Medications Medication Instructions Recorded Confirmed Type No Known Home Meds 06/25/18 06/25/18 History Allergies Allergy/AdvReac Type Severity Reaction Status Date / Time No Known Drug Allergies Allergy Verified 06/25/18 08:43 Medical - CN: Exam - Constitutional Vitals: Temp Pulse Resp BP Pulse Ox 97.9 F 93 H 16 129/83 92 06/27/18 19:31 06/27/18 20:45 06/27/18 20:45 06/27/18 20:45 06/27/18 20:45 Exam: General: Alert, Awake, No acute Distress Eyes/N/T: EOMI, PEERL, Head/Neck: neck supple, normocephalic atraumatic CV: Mildly tachycardic but regular, No murmurs, normal s1/s2 Pulm: Clear b/l, no wheezing/rhonchi/rales Abd: distended, decreased bowel sounds, Ext: no clubbing/cyanosis, mild bilateral lower extremity edema Neuro: Alert, no focal deficits, moves all extremities, CN 2-12 grossly intact, symmetrical strength b/l upper/lower, sensations intact b/l upper/lower Skin: warm/dry Medical - CN: Result - Labs CBC & Chem 7: 06/27/18 04:38 06/27/18 04:38 Labs: Short CBC 06/27/18 Range/Units 04:38 WBC 12.7 H (4.5-11.0) K/mcL Hgb 14.2 (13.5-16.5) g/dL Hct 42.6 (41.0-55.0) % Plt Count 176 (140-440) K/mcL BMP 06/27/18 04:38 Sodium 139 Potassium 3.9 Chloride 101 Carbon Dioxide 27 BUN 24 H Creatinine 1.2 Glucose 169 H Calcium 9.2 Liver Function 06/27/18 Range/Units 04:38 Total Bilirubin 0.8 (0.0-1.0) mg/dL AST 14 (0-37) U/l ALT 18 (0-40) U/l Alkaline Phosphatase 56 (39-117) U/L Albumin 3.4 (3.2-5.2) gm/dL Medical - CN: A/P - Narrative A/P Narrative: A: *Pulmonary emboli, right side: *Acute appendicitis with perforation and generalized peritonitis: s/p lap appy ( 06/25) *Atelectasis: * P: -Therapeutic Lovenox for now with eventual transition to likely NOAC -Follow-up CTA read by in-house radiologist tomorrow -O2 support and wean as able -IS -Ambulation
[2018-06-27] MEDS ORDERED: ENOXAPARIN 100 MG/ML SYRINGE ONE (23:43)
[2018-06-27] MEDS: ENOXAPARIN 100 MG/ML SYRINGE SQ SCH (23:59)
[2018-06-28] MEDS ORDERED: ACETAMINOPHEN 1,000 MG/100 ML BOTTLE IV ONE (04:34)
[2018-06-28] MEDS: ACETAMINOPHEN 1,000 MG/100 ML BOTTLE IV SCH ×3 (04:41→21:35)
[2018-06-28] MEDS: PIPERACILLIN SODIUM/TAZOBACTAM 3.375 GM in DEXTROSE 5% IN WATER 50 ML IV SCH ×3 (05:30→17:28)
[2018-06-28] MEDS: DEXTROSE 5%-1/2NS W/10MEQ KCL 1,000 ML IV SCH ×3 (05:31→23:33)
[2018-06-28 05:36] LABS: Appearance,Urine CLEAR; Bacteria,Urine 0 /hpf (0); Bilirubin,Urine NEG (NEG); Color,Urine AMBER; Glucose,Urine (UA) 50 mg/dL (NEG); Leukocyte Esterase,Urine NEG /uL (NEG); Mucus,Urine FEW /hpf (0); Protein,Urine 30 mg/dL (NEG); Specific Gravity,Urine > 1.015 (1.000-1.035); Urine Blood 0.03 mg/dL (<0.03); Urine RBC 35 /hpf (0-1); Urine Squamous Epithelial Cell 0 /hpf (0-4); Urine WBC 1 /hpf (0-4)
[2018-06-28] MEDS ORDERED: HYDROmorphone 2 MG/ML VIAL ONE (05:37)
[2018-06-28] MEDS ORDERED: ONDANSETRON 4 MG/2 ML VIAL ONE (05:37)
[2018-06-28] MEDS: HYDROmorphone 2 MG/ML VIAL IV PRN ×3 (05:50→19:20)
[2018-06-28] MEDS: ONDANSETRON 4 MG/2 ML VIAL IV PRN ×2 (05:52→12:30)
[2018-06-28 05:56] LABS: Basophils # (Auto) 0 K/mcL (0.0-0.3); Basophils % (Auto) 0.2 % (0.0-2.0); Eosinophils # (Auto) 0.6 K/mcL (0.0-0.7); Eosinophils % (Auto) 4.9 % (0.0-7.0); Granulocytes % (Auto) 81.1 % (38.0-78.0); Lymphocytes % (Auto) 7.9 % (15.5-49.0); Mean Cell Volume 90.4 fL (80.0-100.0); Mean Corpuscular HGB Conc 33.7 g/dL (31.0-36.0); Monocytes # (Auto) 0.7 K/mcL (0.1-0.9); Monocytes % (Auto) 5.9 % (1.0-12.0); Platelet Count 202 K/mcL (140-440); RBC 4.33 M/mcL (4.50-5.90); Red Cell Distribution Width 13.8 % (11.5-14.5)
[2018-06-28] MEDS ORDERED: 0.9 % SODIUM CHLORIDE 10 ML SYRINGE IV SCH (06:00)
[2018-06-28] MEDS: 0.9 % SODIUM CHLORIDE 10 ML SYRINGE IV SCH ×6 (06:16→23:22)
[2018-06-28 06:18] LABS: ALT/SGPT 16 U/l (0-40); Albumin 3.2 gm/dL (3.2-5.2); Albumin/Globulin Ratio 0.9 (1.0-2.3); Alkaline Phosphatase 55 U/L (39-117); Blood Urea Nitrogen 22 mg/dl (8-23)
--- NOTE | 2018-06-28 06:22 | Cat Scan Report ---
CLINICAL INFORMATION: Previous abdominal surgery. COMPARISON: None TECHNIQUE: Axial images obtained through the chest. 60 mL intravenous contrast was administered, and scanning was performed during pulmonary arterial phase. Sagittally and coronally reformatted images were obtained. MIP reformatted images. FINDINGS: Suboptimal bolus timing with less than optimal opacification of the pulmonary arterial system. Examination is diagnostic. Main pulmonary artery, right pulmonary artery, left pulmonary artery are negative. Filling defects. There is intraluminal clot within right upper lobe pulmonary artery, and anterior and posterior segmental pulmonary arteries. No other intraluminal embolus identified. There are air bronchograms in the right lower lobe most consistent with volume loss. Mild volume loss in the right middle lobe and left lower lobe. Pneumonia is possible. No pathologic hilar or mediastinal lymphadenopathy. No CT manifestations of right heart strain. There is dense atherosclerotic calcification of the left anterior descending and circumflex coronary arteries. No significant pleural effusion. No pericardial effusion. Liver is low density consistent with hepatic steatosis. Note is made of cholelithiasis. Stomach is somewhat distended and fluid-filled. Examination was initially interpreted by [facility] IMPRESSION: 1. Positive pulmonary embolism scan. There is embolic material within right upper lobe pulmonary artery as well as the anterior and posterior segmental branches 2. Bilateral pulmonary parenchymal abnormality. There is bilateral loss of the right lower lobe and right middle lobe. There is mild infiltrate or volume loss in the left lower lobe. Pneumonia is not excluded 3. Probable hepatic steatosis. Calcified gallstones. 4. Fluid filled distended stomach The exam was performed using radiation dose optimization techniques including, but not limited to, automated exposure control, adjustment of the mA and/or kV according to patient size and use of iterative reconstruction technique. Interpreted and Authenticated by: Wilfredo Anne 06/28/18
--- NOTE | 2018-06-28 06:24 | Ultrasound Report ---
CLINICAL INFORMATION: Dyspnea. Previous surgery. TECHNIQUE: Grayscale and color flow Doppler spectral imaging COMPARISON: None. FINDINGS: Negative examination. Common femoral vein, superficial femoral vein, popliteal vein are normal bilaterally. No deep venous thrombosis. Peroneus and posterior tibial veins are negative. Greater and lesser saphenous veins are negative IMPRESSION: 1. Negative bilateral lower extremity deep venous ultrasound 2. No deep venous thrombosis Interpreted and Authenticated by: Wilfredo Anne 06/28/18
[2018-06-28] MEDS ORDERED: METOCLOPRAMIDE 10 MG/2 ML VIAL ONE (06:34)
[2018-06-28] MEDS: METOCLOPRAMIDE 10 MG/2 ML VIAL IV SCH ×2 (06:56→14:46)
--- NOTE | 2018-06-28 07:12 | Internal Med Progress Note ---
Medical - PN: Subj Patient information: Note initiated : 06/28/18 at 7:12 am Service Date, if different from initiated Date: [] Patient: Wesley Villeda a 67 y/o M admitted on 06/25/18 for Laparoscopic Appendectomy Possible Open. Chief Complaint: [] Interval history: Mr. Villeda is a 67 year old M Who presented with abdominal pain with associated nausea vomiting on the and found to have acute appendicitis. He had surgery the same day and underwent laparoscopic appendectomy and found to have a perforated appendicitis Intra-Op with generalized peritonitis. Postoperatively his bowels are slow to function and having urinary retention thus a Hogue was placed. He has been belching but has not been having any bowel movements or flatus. The he reported some mild shortness of breath but otherwise no new complaints. Later in the day nurse noticed him to be more labored on room air even though the patient did not particularly feel short of breath. His vital signs are taken as oxygen saturation was 88% on room air. Stat CTA of the chest was done which showed scattered pulmonary emboli in the right upper lobe. His heart rate remains in the 90s which is what he's typically been since he is been here. Blood pressure remained stable. The CTA report no cardiac strain. Patient will be moved to the unit for close monitoring and placed on therapeutic Lovenox. In speaking with the patient he denies any shortness of breath at this time and is without chest pain. He has some mild abdominal pain over the incision site but otherwise no other complaints. No coughing. 06/28 Nausea vomitus morning. NG placed with good output. No chest pain or shortness of breath. high O2 sats on 3L's. Review of Systems: denies headache/fever/chills/chest pain/cough/dyspnea/diarrhea. Otherwise see above. - Constitutional Vitals: Vital Signs Temp Pulse Resp BP Pulse Ox 99.9 F H 89 18 141/85 93 06/28/18 05:30 06/28/18 06:36 06/28/18 06:36 06/28/18 04:01 06/28/18 06:36 Period Temp Pulse Resp BP Sys/[place] Pulse Ox Last 24 Hr 97.9 F-102.4 F 88-95 - 129-145/76-92 88-95 Intake and Output 1206/28/18 06/28/18 21:59 05:59 13:59 Intake Total 1230 / 1230 1049 / 1049 100 / 100 Output Total 600 / 600 625 / 625 1300 / 1300 Balance 630 / 630 424 / 424 -1200 / -1200 Weight 104.78 kg Intake & Output: Intake & Output 06/27/18 06/28/18 06/28/18 21:59 05:59 13:59 Intake Total 1230 / 1230 1049 / 1049 100 / 100 Output Total 600 / 600 625 / 625 1300 / 1300 Balance 630 / 630 424 / 424 -1200 / -1200 Weight 104.78 kg Intake: IV 1050 / 1050 794 / 794 100 / 100 Dextrose 5%-1/2Ns W/10Meq KCl 1 1000 / 1000 744 / 744 ,000 ml @ 125 mls/hr IV .Q8H [facility] Rx#:[id number] Zosyn 3.375 gm In Dextrose 5% 50 / 50 50 / 50 in Water 50 ml @ 100 mls/hr IV Q6H [facility] Rx#:[id number] Oral 180 / 180 255 / 255 Output: Gastric Drainage 400 / 400 [place]-Sump 400 / 400 Drainage 350 / 350 150 / 150 Right Lower Abdomen 350 / 350 150 / 150 Urine Catheter Amount 250 / 250 475 / 475 Emesis 900 / 900 Other: Percent of Meal Consumed ice chips Urine Appearance Clear Uretheral (Hogue) Clear Clear Urine Color Dark Leonie Uretheral (Hogue) Tea Colored Dark Leonie Urine Odor Strong Exam: General: Alert, Awake, No acute Distress Eyes/N/T: EOMI, Head/Neck: neck supple, normocephalic atraumatic CV: Mildly tachycardic but regular, No murmurs, normal s1/s2 Pulm: Clear b/l, no wheezing/rhonchi/rales Abd: distended, decreased bowel sounds, Ext: no clubbing/cyanosis, mild bilateral lower extremity edema Neuro: Alert, no focal deficits, moves all extremities, Skin: warm/dry Medical - PN: Obj Da - Labs CBC & Chem 7: 06/28/18 03:53 06/28/18 03:53 Labs: Abnormal Lab Results 06/28/18 06/28/18 06/28/18 04:20 03:53 03:53 WBC 12.1 H RBC 4.33 L Hgb 13.2 L Hct 39.1 L Plt Count Gran % 81.1 H Lymph % (Auto) 7.9 L Gran # 9.8 H Lymph # (Auto) 1.0 L BUN Glucose 193 H Calcium 8.5 L Phosphorus 1.9 L Total Bilirubin Globulin Albumin/Globulin Ratio 0.9 L Urine Protein 30 A Urine Glucose (UA) 50 A Urine Ketones 5/tr A Urine Occult Blood 0.03 A Urine Urobilinogen 2.0 A Urine RBC 35 H 06/27/18 06/27/18 06/26/18 04:38 04:38 04:43 WBC 12.7 H RBC Hgb Hct Plt Count Gran % 87.1 H Lymph % (Auto) 7.3 L Gran # 11.1 H Lymph # (Auto) 0.9 L BUN 24 H Glucose 169 H 160 H Calcium Phosphorus 2.0 L 2.0 L Total Bilirubin 1.1 H Globulin 3.9 H Albumin/Globulin Ratio 0.9 L 0.9 L Urine Protein Urine Glucose (UA) Urine Ketones Urine Occult Blood Urine Urobilinogen Urine RBC 06/26/18 06/25/18 04:43 07:29 WBC 11.9 H RBC 4.07 L Hgb 12.4 L Hct 36.9 L Plt Count 137 L Gran % 88.3 H Lymph % (Auto) 5.2 L Gran # 10.5 H Lymph # (Auto) 0.6 L BUN Glucose Calcium Phosphorus Total Bilirubin Globulin Albumin/Globulin Ratio Urine Protein Urine Glucose (UA) 150 A Urine Ketones 5/tr A Urine Occult Blood Urine Urobilinogen Urine RBC Meds: Medications Albuterol/Ipratropium (Duoneb) 3 ml NEB Q6HP [facility] Stop: 06/29/18 23:29 Dextrose (Dextrose 50%) 0 ml IV UD PRN PRN Reason: Hypoglycemia Diagnostic Test (Pha) (Accu-Chek) 1 each FS ACHS [facility] Docusate Sodium (Colace) 100 mg PO BID [facility] Enoxaparin Sodium (Lovenox) 100 mg SQ BID [facility] Last Admin: 06/27/18 23:59 Dose: 100 mg Famotidine (Pepcid) 20 mg IV Q12 [facility] Glucose (Insta-Glucose) 15 gm PO PRN PRN PRN Reason: Hypoglycemia Hydralazine HCl (Apresoline) 10 mg IV Q4-6HP PRN PRN Reason: Hypertension Hydromorphone HCl (Dilaudid) 0.5 mg IV Q2HP PRN PRN Reason: PAIN LEVEL > 6 Last Admin: 06/28/18 05:50 Dose: 0.5 mg Potassium Chloride/Dextrose/Sod Cl (Dextrose 5%-1/2ns W/10meq Kcl) 1,000 mls @ 125 mls/hr IV .Q8H [facility] Last Admin: 06/28/18 05:31 Dose: 125 mls/hr Piperacillin Sod/Tazobactam (Sod 3.375 gm/ Dextrose) 50 mls @ 100 mls/hr IV Q6H [facility] Last Admin: 06/28/18 05:30 Dose: 50 mls/hr Acetaminophen (Ofirmev) 1,000 mg in 100 mls @ 200 mls/hr IV Q12 [facility] Last Infusion: 06/28/18 06:15 Dose: Infused Insulin Human Lispro (Humalog) 0 unit SQ ACHS [facility]; Protocol Ketorolac Tromethamine (Toradol) 15 mg IV Q8 [facility] Stop: 06/28/18 21:59 Metoclopramide HCl (Reglan) 5 mg IV Q8 [facility] Stop: 06/28/18 15:59 Last Admin: 06/28/18 06:56 Dose: 5 mg Ondansetron HCl (Zofran) 4 mg IV Q6HP PRN PRN Reason: Nausea And Vomiting Last Admin: 06/28/18 05:52 Dose: 4 mg Oxycodone/Acetaminophen (Percocet 5-325 Mg) 1 tab PO Q6HP PRN PRN Reason: PAIN LEVEL 3-6 Potassium/Phosphorus/Sodium (Neutra Phos) 1 packet PO BID [facility] Stop: 06/28/18 10:00 Sodium Chloride (Saline Flush) 10 ml IV Q8 [facility] Last Admin: 06/28/18 06:16 Dose: Not Given Sodium Chloride (Saline Flush) 10 ml IV Q8 [facility] Last Admin: 06/28/18 06:18 Dose: Not Given Medical - PN: A/P - Time Spent With Patient Total time spent is greater than 50% in coordination of care (as documented) at patient's floor/unit and/or counseling patient: - Narrative A/P Narrative: A: *Pulmonary emboli, right side: *Acute appendicitis with perforation and generalized peritonitis: s/p lap appy ( 06/25) *Atelectasis: * P: -Therapeutic Lovenox for now with eventual transition to likely NOAC -O2 support and wean down -IS -Ambulation -replete electrolytes Medical - PN: Qual - VTE Deep Vein Thrombosis/Pulmonary Embolism Present on Admission: No
[2018-06-28] MEDS: INSULIN LISPRO 1 UNIT/0.01 ML UNIT SQ SCH ×4 (07:33→21:47)
[2018-06-28] MEDS: KETOROLAC 15 MG/ML VIAL IV SCH ×2 (07:34→14:46)
[2018-06-28] MEDS ORDERED: POTASSIUM PHOSPHATE 40 MEQ in DEXTROSE 5% IN WATER 500 ML IV ONE (08:00)
--- NOTE | 2018-06-28 08:28 | XRay Report ---
INDICATION: Nasogastric tube placement TECHNIQUE: AP chest x-ray,portable semiupright COMPARISON: Chest CT scan dated 06/27/2018 FINDINGS:Esophagogastric tube with its tip in the body of the stomach. Elevated right hemidiaphragm. Bilateral, bibasilar infiltrates and volume loss. IMPRESSION: Esophagogastric tube in the stomach Interpreted and Authenticated by: Wilfredo Anne 06/28/18
[2018-06-28] MEDS: DOCUSATE SODIUM 100 MG CAPSULE PO SCH ×2 (08:38→23:22)
[2018-06-28] MEDS: ENOXAPARIN 100 MG/ML SYRINGE SQ SCH ×2 (08:42→21:35)
[2018-06-28] MEDS: FAMOTIDINE/PF 20 MG/2 ML VIAL IV SCH ×2 (08:42→21:37)
[2018-06-28] MEDS ORDERED: DOCUSATE SODIUM 100 MG CAPSULE PO SCH (09:00)
[2018-06-28] MEDS ORDERED: NEUTRA PHOS 1 PACKET PO SCH (09:00)
--- NOTE | 2018-06-28 10:09 | General Surgery Progress Note ---
Subjective Patient reports: pain is less (Patient seen at [facility]. No current complaints states feeling better than yesterday. Had episode of vomiting overnight and ng tube placed. also spiked fever of 102F which subsided.) Narrative: Note initiated : 06/28/18 at 10:06 am Service Date, if different from initiated Date: [] Patient: Wesley Villeda 67 y/o M admitted on 06/25/18 for Laparoscopic Appendectomy Possible Open. Chief Complaint: [] Pertinent ROS: Denies SOB,CP, no current N/V/D, no current F/C/NS, denies abdominal pain Objective Temp Pulse Resp BP Pulse Ox 99.7 F H 88 17 128/87 98 06/28/18 07:15 06/28/18 09:39 06/28/18 09:39 06/28/18 08:01 06/28/18 09:39 - Additional Data Intake & Output - Last 24 hours: Intake & Output 06/26/18 06/27/18 06/28/18 06/29/18 05:59 05:59 05:59 05:59 Intake Total 5080 / 5080 2855 / 2855 4579 / 4579 150 / 150 Output Total 3940 / 3940 1000 / 1000 1225 / 1225 1730 / 1730 Balance 1140 / 1140 1855 / 1855 3354 / 3354 -1580 / -1580 Weight 225 lb 238 lb 231 lb - General physical appearance well developed, well nourished, no distress - Cardiovascular Cardiovascular exam: Present: normal rate and rhythm - Abdomen soft (Distended, NTTP, no rebound or guarding. Surgical sites C/D/I) - Integumentary no rash - Psychiatric oriented to time, oriented to person, oriented to place - Labs 06/28/18 03:53 06/28/18 03:53 Diabetes panel 06/28/18 Range/Units 03:53 Sodium 139 (133-145) mmol/L Potassium 3.7 (3.3-5.1) mmol/L Chloride 103 (96-108) mmol/L Carbon Dioxide 27 (22-30) mmol/L BUN 22 (8-23) mg/dl Creatinine 1.1 (0.7-1.2) mg/dl Glucose 193 H (70-105) mg/dL Calcium 8.5 L (8.6-10.4) mg/dl AST 13 (0-37) U/l ALT 16 (0-40) U/l Alkaline Phosphatase 55 (39-117) U/L Total Protein 6.8 (5.9-8.4) gm/dL Albumin 3.2 (3.2-5.2) gm/dL Calcium panel 06/28/18 Range/Units 03:53 Calcium 8.5 L (8.6-10.4) mg/dl Phosphorus 1.9 L (2.7-4.5) mg/dL Albumin 3.2 (3.2-5.2) gm/dL Pituitary panel 06/28/18 Range/Units 03:53 Sodium 139 (133-145) mmol/L Potassium 3.7 (3.3-5.1) mmol/L Chloride 103 (96-108) mmol/L Carbon Dioxide 27 (22-30) mmol/L BUN 22 (8-23) mg/dl Creatinine 1.1 (0.7-1.2) mg/dl Glucose 193 H (70-105) mg/dL Calcium 8.5 L (8.6-10.4) mg/dl Adrenal panel 06/28/18 Range/Units 03:53 Sodium 139 (133-145) mmol/L Potassium 3.7 (3.3-5.1) mmol/L Chloride 103 (96-108) mmol/L Carbon Dioxide 27 (22-30) mmol/L BUN 22 (8-23) mg/dl Creatinine 1.1 (0.7-1.2) mg/dl Glucose 193 H (70-105) mg/dL Calcium 8.5 L (8.6-10.4) mg/dl Total Bilirubin 0.7 (0.0-1.0) mg/dL AST 13 (0-37) U/l ALT 16 (0-40) U/l Alkaline Phosphatase 55 (39-117) U/L Total Protein 6.8 (5.9-8.4) gm/dL Albumin 3.2 (3.2-5.2) gm/dL - Imaging Chest x-ray: image reviewed (Atelectasis and infiltrates) Abdominal x-ray: image reviewed (Ileus) CT scan - chest: image reviewed Assessment and Plan (1) Acute appendicitis with perforation and generalized peritonitis Status: Acute Current Visit: Yes (2) Acute appendicitis Status: Acute Current Visit: Yes (3) Pulmonary embolism Status: Acute Current Visit: Yes (4) Hyperglycemia Status: Acute Current Visit: Yes - Narrative A/P Narrative: 67 yo male POD#3 for laparoscopic appendectomy for perforated appendicitis with generalized peritonitis, found to have segmental pulmonary embolism and suspected ileus. Neuro: continue IV Tylenol and Toradol standing, Dilaudid prn severe pain. Cardiovascular: Continuous cardiac monitoring, Hydralazine prn Pulm: Continue incentive spirometer. O2 2 L NC prn, Duoneb q6 GI: NPO, Continue ngt to lws. Continue famotidine. Continue Reglan & zofran prn. Upper GI series today. Continue susie to bulb suction ID: Continue Zosyn. Leukocytosis decreasing, blood cultures from fever workup pending. : Continue carrion for hemodynamic monitoring ENDO: Continue FSBS and RISS Hemonc: Lovenox 100mg sc q12. MSK: PT on case appreciated FEN: D51/2+10kcl@125 with NS bolus prn, am labs, OOB to chair, replace electrolytes prn GI Prophylaxis: Famotidine DVT Prophylaxis: SCD's HSQ Medical team on case appreciated. Condition: guarded Disposition: ICU care for today. - Time Spent With Patient Total time spent is greater than 50% in coordination of care (as documented) at patient's floor/unit and/or counseling patient:
--- NOTE | 2018-06-28 10:49 | Operative Note ---
Date of procedure: 06/25/18 Pre-op diagnosis: Acute appendicitis Post-op diagnosis: perforated appendicitis with generalized peritonitis Procedure: Laparoscopic Appendectomy Surgeon: Luís Haley Accounts Specialist: PCP No Anesthesia: GETA Findings: Perforated appendicitis with generalized peritonitis Specimens Removed/Pathology: other (Appendix, intraabdominal fluid culture) Estimated blood loss (cc): 20 Complications: none INDICATION: This a 67 yo male who presents with reported 1 day history of abdominal pain which worsened so he came to the ED. CT scan findings were consistent with appendicitis. The risks and benefits of the procedure were discussed in layman's terms with the patient including but not limited to: risk of bleeding, infection, bowel injury requiring a bigger surgery, injury to other organs, future hernia's or scars, skin infections or intrabdominal infections including abscess requiring drainage. All questions were answered and consent was obtained. DESCRIPTION OF PROCEDURE: The patient was brought to the operating room and placed supine on the operating table. After undergoing anesthesia, a carrion was placed and perioperative antibiotics had been given. His abdomen was prepped and draped in a standard sterile fashion using DuraPrep. A 5 mm Optiview trocar was placed in the supraumbilical position under direct vision. Trocars were then placed: A 12mm left lower quadrant, a 5mm right lower quadrant and a left upper quadrant 5mm, under direct vision without any signs of injury to organs. No obvious purulent fluid noted. There appeared to be a generalized peritonitis with the appendix found to be inflamed and adhesed to the lateral peritoneum with the base appearing normal. The appendix was grasped and elevated. The appendix was bluntly& sharply dissected and the base of the appendix was transected. the mesoappendix was transected with bipolar. Hemostasis was maintained. Th appendix was placed in the bag and removed through the left lower quadrant trocar incision. The abdomen was irrigated out and suctioned out the right lower quadrant. A piece of surgicell was placed in the right lower quadrant where trace oozing was noted. A 10f susie drain was placed along the right lower quadrant and sutured to the skin. A 0-vicryl with endoclose was used to close the fascia on the 12mm left lower quadrant port. Th other ports were removed under direct vision and the abdomen was desufflated. After wash and drying of skin, la nena followed by gauze dressings were used. The patient was awakened, extubated and transferred to the PACU in satisfactory condition. The patient tolerated the procedure well. All counts were correct
--- NOTE | 2018-06-28 16:22 | XRay Report ---
CLINICAL INFORMATION: Previous surgery for appendicitis. Abdominal distention. History of postoperative pulmonary embolism TECHNIQUE: Water-soluble contrast material was given through the esophagogastric tube. Images were obtained through 6 hours. COMPARISON: None. FINDINGS: Blood Bank Custodian film demonstrates gas-filled small bowel. There is some fecal material within the abdomen. Small bowel is dilated to approximately 6 cm in cross-sectional diameter. There is a surgical drain within the pelvis. Upright film demonstrates probable minimal pneumoperitoneum. This is probably benign and postoperative. There is no biliary or portal venous gas. No pneumatosis. Following water soluble contrast administration images were obtained at 60 minutes and 120 minutes. There is contrast material within the stomach and duodenum. There is no contrast material within jejunum or ileum. 6 hour images were obtained but the contrast material has been removed via suction. There is persistent small bowel dilatation. There continues to be some fecal material and gas within the colon. Findings are most consistent with postoperative ileus. Mechanical small bowel obstruction is not excluded. Continued follow-up plain film examination recommended. IMPRESSION: 1. Postoperative abdomen as above 2. Dilated gas-filled small bowel. There continues to be fecal material and some gas within the colon 3. Findings are most consistent with postoperative ileus. Mechanical small bowel obstruction is not excluded and continued follow-up radiographs are recommended. 4. Water-soluble contrast material was given and did not pass beyond the duodenum at 2 hours. This was removed via suction Interpreted and Authenticated by: Wilfredo Anne 06/28/18
--- NOTE | 2018-06-28 20:38 | General Surgery Progress Note ---
Subjective Patient reports: feels better (Patient seen on PM rounds. NG tube in place. carrion with adequate output. UGI series showed Ileus. ) Narrative: Note initiated : 06/28/18 at 8:36 pm Service Date, if different from initiated Date: [] Patient: Wesley Villeda 67 y/o M admitted on 06/25/18 for Laparoscopic Appendectomy Possible Open. Chief Complaint: [] Pertinent ROS: Denies abdominal pain, no SOB, no CP, no N/V/D, denies F/C/NS Objective Temp Pulse Resp BP Pulse Ox 99.0 F 71 16 121/72 95 06/28/18 16:01 06/28/18 18:35 06/28/18 18:35 06/28/18 18:01 06/28/18 18:35 - Additional Data Intake & Output - Last 24 hours: Intake & Output 06/26/18 06/27/18 06/28/18 06/29/18 05:59 05:59 05:59 05:59 Intake Total 5080 / 5080 2855 / 2855 4579 / 4579 1750 / 1750 Output Total 3940 / 3940 1000 / 1000 1225 / 1225 4875 / 4875 Balance 1140 / 1140 1855 / 1855 3354 / 3354 -3125 / -3125 Weight 225 lb 238 lb 231 lb - General physical appearance well developed, well nourished, no distress - Eyes normal ocular movement - Respiratory clear to auscultation - Cardiovascular Cardiovascular exam: Present: normal rate and rhythm - Abdomen soft (Soft, NTTP, nor rebound or guarding, less distended.), tender - Genitourinary normal penis with no external lesions - Integumentary no rash - Labs 06/28/18 03:53 06/28/18 03:53 Diabetes panel 06/28/18 Range/Units 03:53 Sodium 139 (133-145) mmol/L Potassium 3.7 (3.3-5.1) mmol/L Chloride 103 (96-108) mmol/L Carbon Dioxide 27 (22-30) mmol/L BUN 22 (8-23) mg/dl Creatinine 1.1 (0.7-1.2) mg/dl Glucose 193 H (70-105) mg/dL Calcium 8.5 L (8.6-10.4) mg/dl AST 13 (0-37) U/l ALT 16 (0-40) U/l Alkaline Phosphatase 55 (39-117) U/L Total Protein 6.8 (5.9-8.4) gm/dL Albumin 3.2 (3.2-5.2) gm/dL Calcium panel 06/28/18 Range/Units 03:53 Calcium 8.5 L (8.6-10.4) mg/dl Phosphorus 1.9 L (2.7-4.5) mg/dL Albumin 3.2 (3.2-5.2) gm/dL Pituitary panel 06/28/18 Range/Units 03:53 Sodium 139 (133-145) mmol/L Potassium 3.7 (3.3-5.1) mmol/L Chloride 103 (96-108) mmol/L Carbon Dioxide 27 (22-30) mmol/L BUN 22 (8-23) mg/dl Creatinine 1.1 (0.7-1.2) mg/dl Glucose 193 H (70-105) mg/dL Calcium 8.5 L (8.6-10.4) mg/dl Adrenal panel 06/28/18 Range/Units 03:53 Sodium 139 (133-145) mmol/L Potassium 3.7 (3.3-5.1) mmol/L Chloride 103 (96-108) mmol/L Carbon Dioxide 27 (22-30) mmol/L BUN 22 (8-23) mg/dl Creatinine 1.1 (0.7-1.2) mg/dl Glucose 193 H (70-105) mg/dL Calcium 8.5 L (8.6-10.4) mg/dl Total Bilirubin 0.7 (0.0-1.0) mg/dL AST 13 (0-37) U/l ALT 16 (0-40) U/l Alkaline Phosphatase 55 (39-117) U/L Total Protein 6.8 (5.9-8.4) gm/dL Albumin 3.2 (3.2-5.2) gm/dL Assessment and Plan (1) Acute appendicitis with perforation and generalized peritonitis Status: Acute Current Visit: Yes (2) Acute appendicitis Status: Acute Current Visit: Yes (3) Pulmonary embolism Status: Acute Current Visit: Yes (4) Hyperglycemia Status: Acute Current Visit: Yes - Narrative A/P Narrative: 67 yo male POD#3 for laparoscopic appendectomy for perforated appendicitis with generalized peritonitis, found to have segmental pulmonary embolism and suspected ileus. Neuro: continue IV Tylenol and Toradol standing, Dilaudid prn severe pain. Cardiovascular: Continuous cardiac monitoring, Hydralazine prn Pulm: Continue incentive spirometer. O2 2 L NC prn, Duoneb q6 GI: NPO, Continue ngt to lws. Continue famotidine. Continue Reglan & zofran prn. Continue susie to bulb suction ID: Continue Zosyn. Leukocytosis decreasing, blood cultures from fever workup pending. : Continue carrion for hemodynamic monitoring ENDO: Continue FSBS and RISS Hemonc: Lovenox 100mg sc q12. MSK: PT on case appreciated FEN: D51/2+10kcl@125 with NS bolus prn, am labs, OOB to chair, replace electrolytes prn GI Prophylaxis: Famotidine DVT Prophylaxis: SCD's On therapeutic lovenox Medical team on case appreciated. Condition: guarded Disposition: ICU care for today. - Time Spent With Patient Total time spent is greater than 50% in coordination of care (as documented) at patient's floor/unit and/or counseling patient:
[2018-06-29] MEDS: PIPERACILLIN SODIUM/TAZOBACTAM 3.375 GM in DEXTROSE 5% IN WATER 50 ML IV SCH ×5 (00:07→23:47)
[2018-06-29] MEDS: HYDROmorphone 2 MG/ML VIAL IV PRN ×6 (04:09→21:29)
[2018-06-29] MEDS: DEXTROSE 5%-1/2NS W/10MEQ KCL 1,000 ML IV SCH ×4 (04:36→19:10)
[2018-06-29 05:29] LABS: Basophils # (Auto) 0 K/mcL (0.0-0.3); Basophils % (Auto) 0.2 % (0.0-2.0); Eosinophils # (Auto) 0.8 K/mcL (0.0-0.7); Eosinophils % (Auto) 7.6 % (0.0-7.0); Granulocytes % (Auto) 74.2 % (38.0-78.0); Lymphocytes # (Auto) 1.2 K/mcL (1.5-4.8); Lymphocytes % (Auto) 11.2 % (15.5-49.0); Mean Cell Volume 89.9 fL (80.0-100.0); Mean Corpuscular HGB Conc 34.3 g/dL (31.0-36.0); Monocytes # (Auto) 0.7 K/mcL (0.1-0.9); Monocytes % (Auto) 6.8 % (1.0-12.0); Platelet Count 207 K/mcL (140-440); RBC 4.27 M/mcL (4.50-5.90); Red Cell Distribution Width 13.7 % (11.5-14.5)
[2018-06-29 05:51] LABS: Blood Urea Nitrogen 19 mg/dl (8-23)
[2018-06-29] MEDS: 0.9 % SODIUM CHLORIDE 10 ML SYRINGE IV SCH ×4 (06:07→22:10)
[2018-06-29] MEDS: INSULIN LISPRO 1 UNIT/0.01 ML UNIT SQ SCH ×4 (07:33→21:26)
--- NOTE | 2018-06-29 10:00 | General Surgery Progress Note ---
Subjective Patient reports: feels better (Patient seen at bedside. States feels better than yesterday. No overnight evenst reported. Passing flatus.) Narrative: Note initiated : 06/29/18 at 9:58 am Service Date, if different from initiated Date: [] Patient: Wesley Villeda 67 y/o M admitted on 06/25/18 for Laparoscopic Appendectomy Possible Open. Chief Complaint: [] Pertinent ROS: No N/V/D no F/C/NS, no SOB or CP. no current abdominal pain Objective Temp Pulse Resp BP Pulse Ox 97.7 F 82 18 125/89 98 06/29/18 08:00 06/29/18 08:06 06/29/18 08:00 06/29/18 09:01 06/29/18 08:06 - Additional Data Intake & Output - Last 24 hours: Intake & Output 06/27/18 06/28/18 06/29/18 06/30/18 05:59 05:59 05:59 05:59 Intake Total 2855 / 2855 4579 / 4579 4459.0909 / 4459.0909 Output Total 1000 / 1000 1625 / 1625 5886 / 5886 150 / 150 Balance 1855 / 1855 2954 / 2954 -1426.9091 / -1426.9091 -150 / -150 Weight 238 lb 231 lb 235 lb 3.2 oz - General physical appearance well developed, well nourished, no distress - Eyes normal ocular movement - ENT normal mucosa - Respiratory clear to auscultation - Cardiovascular Cardiovascular exam: Present: normal rate and rhythm - Abdomen soft (Mildly TTP, less distended than yesterday. no rebound or guarding. SUSIE drain with serous output.), non tender - Genitourinary normal penis with no external lesions - Integumentary no rash - Psychiatric oriented to time, oriented to person, oriented to place - Labs 06/29/18 03:44 06/29/18 03:44 Diabetes panel 06/29/18 Range/Units 03:44 Sodium 139 (133-145) mmol/L Potassium 3.2 L (3.3-5.1) mmol/L Chloride 102 (96-108) mmol/L Carbon Dioxide 27 (22-30) mmol/L BUN 19 (8-23) mg/dl Creatinine 1.0 (0.7-1.2) mg/dl Glucose 168 H (70-105) mg/dL Calcium 8.3 L (8.6-10.4) mg/dl Calcium panel 06/29/18 Range/Units 03:44 Calcium 8.3 L (8.6-10.4) mg/dl Phosphorus 2.5 L (2.7-4.5) mg/dL Pituitary panel 06/29/18 Range/Units 03:44 Sodium 139 (133-145) mmol/L Potassium 3.2 L (3.3-5.1) mmol/L Chloride 102 (96-108) mmol/L Carbon Dioxide 27 (22-30) mmol/L BUN 19 (8-23) mg/dl Creatinine 1.0 (0.7-1.2) mg/dl Glucose 168 H (70-105) mg/dL Calcium 8.3 L (8.6-10.4) mg/dl Adrenal panel 06/29/18 Range/Units 03:44 Sodium 139 (133-145) mmol/L Potassium 3.2 L (3.3-5.1) mmol/L Chloride 102 (96-108) mmol/L Carbon Dioxide 27 (22-30) mmol/L BUN 19 (8-23) mg/dl Creatinine 1.0 (0.7-1.2) mg/dl Glucose 168 H (70-105) mg/dL Calcium 8.3 L (8.6-10.4) mg/dl Assessment and Plan (1) Acute appendicitis with perforation and generalized peritonitis Status: Acute Current Visit: Yes (2) Acute appendicitis Status: Acute Current Visit: Yes (3) Pulmonary embolism Status: Acute Current Visit: Yes (4) Hyperglycemia Status: Acute Current Visit: Yes - Narrative A/P Narrative: 67 yo male POD#4 for laparoscopic appendectomy for perforated appendicitis with generalized peritonitis, found to have segmental pulmonary embolism and suspected ileus. Neuro: Continue IV Tylenol and Toradol standing, Dilaudid prn severe pain. Cardiovascular: Continuous cardiac monitoring, Hydralazine prn Pulm: Continue incentive spirometer. O2 2 L NC prn, Duoneb q6. Therapeutic Lovenox GI: NPO, Continue ngt to lws. Continue famotidine. Continue Reglan & zofran prn. Continue susie to bulb suction ID: Continue Zosyn. Leukocytosis decreasing, blood cultures from fever workup pending. : Will discontinue carrion with void trial ENDO: Continue FSBS and RISS Hemonc: Lovenox 100mg sc q12. MSK: PT on case appreciated FEN: D51/2+10kcl@125 with NS bolus prn, Multivitamins, am labs, OOB to chair, replace electrolytes prn GI Prophylaxis: Famotidine DVT Prophylaxis: SCD's On therapeutic lovenox Medical team on case appreciated. Condition: guarded Disposition: Downgrade to telemetry - Time Spent With Patient Total time spent is greater than 50% in coordination of care (as documented) at patient's floor/unit and/or counseling patient:
[2018-06-29] MEDS ORDERED: 0.9 % SODIUM CHLORIDE 500 ML IV ONE (10:08)
[2018-06-29] MEDS: ENOXAPARIN 100 MG/ML SYRINGE SQ SCH ×2 (10:19→21:26)
[2018-06-29] MEDS: FAMOTIDINE/PF 20 MG/2 ML VIAL IV SCH ×2 (10:19→21:28)
[2018-06-29] MEDS: ACETAMINOPHEN 1,000 MG/100 ML BOTTLE IV SCH ×2 (10:19→21:27)
[2018-06-29] MEDS: DOCUSATE SODIUM 100 MG CAPSULE PO SCH ×2 (10:20→21:26)
[2018-06-29] MEDS ORDERED: IPRATROPIUM/ALBUTEROL 3 ML AMPUL.NEB NEB SCH (10:41)
[2018-06-29] MEDS ORDERED: DEXTROSE 31 GM ORAL.SUSP PO PRN (10:41)
[2018-06-29] MEDS ORDERED: DEXTROSE 50% 50 ML VIAL IV PRN (10:41)
[2018-06-29] MEDS ORDERED: hydrALAZINE 20 MG/ML VIAL IV PRN (10:41)
[2018-06-29] MEDS ORDERED: POTASSIUM PHOSPHATE 40 MEQ in DEXTROSE 5% IN WATER 500 ML IV ONE ×2 (11:00→12:00)
[2018-06-29] MEDS: BISACODYL 10 MG SUPP.RECT PR ONE ×2 (11:29→16:46)
[2018-06-29] MEDS: MULTIVITAMINS,THERAPEUTIC 1 ML ORAL.SOL PT SCH (11:34)
--- NOTE | 2018-06-29 12:44 | Internal Med Progress Note ---
Medical - PN: Subj Patient information: Note initiated : 06/29/18 at 12:41 pm Service Date, if different from initiated Date: [] Patient: Wesley Villeda a 67 y/o M admitted on 06/25/18 for Laparoscopic Appendectomy Possible Open. Chief Complaint: [] Interval history: Mr. Villeda is a 67 year old M Who presented with abdominal pain with associated nausea vomiting on the and found to have acute appendicitis. He had surgery the same day and underwent laparoscopic appendectomy and found to have a perforated appendicitis Intra-Op with generalized peritonitis. Postoperatively his bowels are slow to function and having urinary retention thus a Hogue was placed. He has been belching but has not been having any bowel movements or flatus. The he reported some mild shortness of breath but otherwise no new complaints. Later in the day nurse noticed him to be more labored on room air even though the patient did not particularly feel short of breath. His vital signs are taken as oxygen saturation was 88% on room air. Stat CTA of the chest was done which showed scattered pulmonary emboli in the right upper lobe. His heart rate remains in the 90s which is what he's typically been since he is been here. Blood pressure remained stable. The CTA report no cardiac strain. Patient will be moved to the unit for close monitoring and placed on therapeutic Lovenox. In speaking with the patient he denies any shortness of breath at this time and is without chest pain. He has some mild abdominal pain over the incision site but otherwise no other complaints. No coughing. 06/28 Nausea vomitus morning. NG placed with good output. No chest pain or shortness of breath. high O2 sats on 3L's. 06/29 Patient seen examined, no acute overnight issues, NG still in place, had BM today NO acute complaints reported. Pertinent ROS: Denies headache, dizziness Denies chest pain, palpitations Denies cough or shortness of breath Denies abdominal pain (soreness at surgical site) Present nausea or vomiting. - Constitutional Vitals: Vital Signs Temp Pulse Resp BP Pulse Ox 98.6 F 78 18 127/85 94 06/29/18 12:01 06/29/18 12:01 06/29/18 08:00 06/29/18 12:01 06/29/18 12:01 Period Temp Pulse Resp BP Sys/Boudreaux Pulse Ox Last 24 Hr 97.7 F-100.5 F 67-93 14-22 99-145/61-89 89-98 Intake and Output 06/28/18 06/29/18 06/29/18 21:59 05:59 13:59 Intake Total 1050 / 1050 1709.0909 / 1709.0909 160 / 160 Output Total 1343 / 1343 913 / 913 305 / 305 Balance -293 / -695 058.6710 / 796.0909 -145 / -145 Weight 235 lb 3.2 oz Intake & Output: Intake & Output 06/28/18 06/29/18 06/29/18 21:59 05:59 13:59 Intake Total 1050 / 1050 1709.0909 / 1709.0909 160 / 160 Output Total 1343 / 1343 913 / 913 305 / 305 Balance -293 / -902 829.0015 / 796.0909 -145 / -145 Weight 235 lb 3.2 oz Intake: IV 1050 / 1050 1709.0909 / 1709.0909 100 / 100 Dextrose 5%-1/2Ns W/10Meq KCl 1 1000 / 1000 1000 / 1000 ,000 ml @ 125 mls/hr IV .Q8H [facility] Rx#:[id number] Zosyn 3.375 gm In Dextrose 5% 50 / 50 100 / 100 in Water 50 ml @ 100 mls/hr IV Q6H [facility] Rx#:[id number] Potassium Phosphate 40 Meq In 509.0909 / 509.0909 Dextrose 5% in Water 500 ml @ 127.273 mls/hr IV ONCE ONE Rx#: [id number] GI Tube Flush 60 / 60 Output: Gastric Drainage 950 / 950 600 / 600 NG/OG 950 / 950 600 / 600 Drainage 75 / 75 10 / 10 50 / 50 Right Lower Abdomen 75 / 75 10 / 10 50 / 50 Urine Catheter Amount 318 / 318 303 / 303 255 / 255 Other: Urine Appearance Clear Clear Clear Urine Color Light Leonie Light Elonie Light Leonie Urine Odor Strong # Emeses 1 Exam: Constitutional; Afebrile, cooperative, alert, not in distress. Eyes- No icterus, , No periorbital swelling Ears- Ext ear normal, hearing normal to conversation. Neck- Midline trachea, supple Respiratory system: Air Entry equal on both sides, No crackles or wheezing, no rhonchi. CVS- Rate rhythm regular, S1,S2 heard, no gallop, no rub. Abdomen- distended, right lower quadrant tenderness,hypoactive bowel sounds [employer]- AOOx3, moving all extremities, no gross focal deficit noted. Medical - PN: Obj Da - Labs CBC & Chem 7: 06/29/18 03:44 06/29/18 03:44 Labs: Abnormal Lab Results 06/29/18 06/29/18 06/28/18 03:44 03:44 04:20 WBC RBC 4.27 L Hgb 13.2 L Hct 38.4 L Gran % Lymph % (Auto) 11.2 L Eos % (Auto) 7.6 H Gran # Lymph # (Auto) 1.2 L Eos # (Auto) 0.8 H Potassium 3.2 L BUN Glucose 168 H Calcium 8.3 L Phosphorus 2.5 L Globulin Albumin/Globulin Ratio Urine Protein 30 A Urine Glucose (UA) 50 A Urine Ketones 5/tr A Urine Occult Blood 0.03 A Urine Urobilinogen 2.0 A Urine RBC 35 H 06/28/18 06/28/18 06/27/18 03:53 03:53 04:38 WBC 12.1 H RBC 4.33 L Hgb 13.2 L Hct 39.1 L Gran % 81.1 H Lymph % (Auto) 7.9 L Eos % (Auto) Gran # 9.8 H Lymph # (Auto) 1.0 L Eos # (Auto) Potassium BUN 24 H Glucose 193 H 169 H Calcium 8.5 L Phosphorus 1.9 L 2.0 L Globulin 3.9 H Albumin/Globulin Ratio 0.9 L 0.9 L Urine Protein Urine Glucose (UA) Urine Ketones Urine Occult Blood Urine Urobilinogen Urine RBC 06/27/18 04:38 WBC 12.7 H RBC Hgb Hct Gran % 87.1 H Lymph % (Auto) 7.3 L Eos % (Auto) Gran # 11.1 H Lymph # (Auto) 0.9 L Eos # (Auto) Potassium BUN Glucose Calcium Phosphorus Globulin Albumin/Globulin Ratio Urine Protein Urine Glucose (UA) Urine Ketones Urine Occult Blood Urine Urobilinogen Urine RBC Meds: Medications Albuterol/Ipratropium (Duoneb) 3 ml NEB Q6HP [facility] Stop: 06/29/18 23:29 Dextrose (Dextrose 50%) 0 ml IV UD PRN PRN Reason: Hypoglycemia Diagnostic Test (Pha) (Accu-Chek) 1 each FS ACHS [facility] Last Admin: 06/29/18 11:42 Dose: 1 each Docusate Sodium (Colace) 100 mg PO BID [facility] Enoxaparin Sodium (Lovenox) 100 mg SQ BID [facility] Famotidine (Pepcid) 20 mg IV Q12 [facility] Glucose (Insta-Glucose) 15 gm PO PRN PRN PRN Reason: Hypoglycemia Hydralazine HCl (Apresoline) 10 mg IV Q4-6HP PRN PRN Reason: Hypertension Hydromorphone HCl (Dilaudid) 0.5 mg IV Q2HP PRN PRN Reason: PAIN LEVEL > 6 Potassium Chloride/Dextrose/Sod Cl (Dextrose 5%-1/2ns W/10meq Kcl) 1,000 mls @ 125 mls/hr IV .Q8H [facility] Stop: 07/01/18 23:29 Acetaminophen (Ofirmev) 1,000 mg in 100 mls @ 200 mls/hr IV Q12 [facility] Piperacillin Sod/Tazobactam (Sod 3.375 gm/ Dextrose) 50 mls @ 100 mls/hr IV Q6H [facility] Last Admin: 06/29/18 11:35 Dose: 100 mls/hr Potassium Phosphate 40 meq/ (Dextrose) 509.0909 mls @ 127.273 mls/hr IV ONCE ONE Stop: 06/29/18 15:59 Last Admin: 06/29/18 11:29 Dose: 127.273 mls/hr Insulin Human Lispro (Humalog) 0 unit SQ ACHS [facility]; Protocol Last Admin: 06/29/18 11:44 Dose: 2 units Multivitamins (Thera-Plus) 5 ml PT DAILY [facility] Last Admin: 06/29/18 11:34 Dose: 5 ml Ondansetron HCl (Zofran) 4 mg IV Q6HP PRN PRN Reason: Nausea And Vomiting Sodium Chloride (Saline Flush) 10 ml IV Q8 [facility] Sodium Chloride (Saline Flush) 10 ml IV Q8 [facility] Medical - PN: A/P - Time Spent With Patient Total time spent is greater than 50% in coordination of care (as documented) at patient's floor/unit and/or counseling patient: - Narrative A/P Narrative: A: Acute Pulmonary Embolus- Right sided, presently on therapeutic lovenox, will need to switch to newer NOAC or coumadin per insurance at discharge, total 6 months of anticoagulation planned Acute appendicitis with perforation and generalized peritonitis: s/p lap appy ( 06/25): management per surgery Ileus- Post op, management per surgery. Atelectasis:- Pulmonary toilet. Hypoxia due to above- wean off oxygen as tolerated Hypokalemia/Hypophosphatemia- Replace Medical - PN: Qual - VTE Deep Vein Thrombosis/Pulmonary Embolism Present on Admission: No
[2018-06-29] MEDS ORDERED: 0.9 % SODIUM CHLORIDE 10 ML SYRINGE IV SCH (14:00)
--- NOTE | 2018-06-29 18:20 | General Surgery Progress Note ---
Subjective Patient reports: no new complaints (Patient seen at bedside on pm rounds. carrion removed and able to void. passing flatus. using IS. No events reported) Narrative: Note initiated : 06/29/18 at 6:16 pm Service Date, if different from initiated Date: [] Patient: Wesley Villeda 67 y/o M admitted on 06/25/18 for Laparoscopic Appendectomy Possible Open. Chief Complaint: [] Pertinent ROS: Denies N/V/D, no F/C, no current abdominal pain. Objective Temp Pulse Resp BP Pulse Ox 97.6 F 80 18 147/91 96 06/29/18 16:12 06/29/18 16:12 06/29/18 08:00 06/29/18 16:12 06/29/18 16:12 - Additional Data Intake & Output - Last 24 hours: Intake & Output 06/27/18 06/28/18 06/29/18 06/30/18 05:59 05:59 05:59 05:59 Intake Total 2855 / 2855 4579 / 4579 4459.0909 / 4459.0909 210 / 210 Output Total 1000 / 1000 1625 / 1625 5886 / 5886 630 / 630 Balance 1855 / 1855 2954 / 2954 -1426.9091 / -1426.9091 -420 / -420 Weight 238 lb 231 lb 235 lb 3.2 oz - General physical appearance well developed, well nourished - ENT normal mucosa - Respiratory rales: bilateral (trace b/l rales at bases) - Cardiovascular Cardiovascular exam: Present: normal rate and rhythm - Abdomen soft (minimally distended, NTTP, no rebound or guarding. SUSIE with serous output with leakage around susie) - Neurologic normal sensation - Psychiatric oriented to time, oriented to person, oriented to place - Additional Exam LE +1 B/L LE edema ankles - Labs 06/29/18 03:44 06/29/18 03:44 Diabetes panel 06/29/18 Range/Units 03:44 Sodium 139 (133-145) mmol/L Potassium 3.2 L (3.3-5.1) mmol/L Chloride 102 (96-108) mmol/L Carbon Dioxide 27 (22-30) mmol/L BUN 19 (8-23) mg/dl Creatinine 1.0 (0.7-1.2) mg/dl Glucose 168 H (70-105) mg/dL Calcium 8.3 L (8.6-10.4) mg/dl Calcium panel 06/29/18 Range/Units 03:44 Calcium 8.3 L (8.6-10.4) mg/dl Phosphorus 2.5 L (2.7-4.5) mg/dL Pituitary panel 06/29/18 Range/Units 03:44 Sodium 139 (133-145) mmol/L Potassium 3.2 L (3.3-5.1) mmol/L Chloride 102 (96-108) mmol/L Carbon Dioxide 27 (22-30) mmol/L BUN 19 (8-23) mg/dl Creatinine 1.0 (0.7-1.2) mg/dl Glucose 168 H (70-105) mg/dL Calcium 8.3 L (8.6-10.4) mg/dl Adrenal panel 06/29/18 Range/Units 03:44 Sodium 139 (133-145) mmol/L Potassium 3.2 L (3.3-5.1) mmol/L Chloride 102 (96-108) mmol/L Carbon Dioxide 27 (22-30) mmol/L BUN 19 (8-23) mg/dl Creatinine 1.0 (0.7-1.2) mg/dl Glucose 168 H (70-105) mg/dL Calcium 8.3 L (8.6-10.4) mg/dl Assessment and Plan (1) Acute appendicitis with perforation and generalized peritonitis Status: Acute Current Visit: Yes (2) Acute appendicitis Status: Acute Current Visit: Yes (3) Pulmonary embolism Status: Acute Current Visit: Yes (4) Hyperglycemia Status: Acute Current Visit: Yes - Narrative A/P Narrative: 67 yo male POD#4 for laparoscopic appendectomy for perforated appendicitis with generalized peritonitis, found to have segmental pulmonary embolism and suspected ileus. Neuro: Continue IV Tylenol and Toradol standing, Dilaudid prn severe pain. Cardiovascular: Continuous cardiac monitoring, Hydralazine prn Pulm: Continue incentive spirometer. O2 2 L NC prn, Duoneb q6. Therapeutic Lovenox. Am CXR. GI: NPO, Continue ngt clamped. Continue famotidine. Continue Reglan & zofran prn. Continue susie to bulb suction ID: Continue Zosyn. Leukocytosis decreasing, blood cultures from fever workup pending. : Carrion removed, patient able to void ENDO: Continue FSBS and RISS Hemonc: Lovenox 100mg sc q12 will switch to oral meds when able to tolerate PO MSK: PT on case appreciated FEN: D51/2+10kcl@125 with NS bolus prn, Multivitamins, am labs, OOB to chair, replace electrolytes prn GI Prophylaxis: Famotidine DVT Prophylaxis: SCD's On therapeutic lovenox Medical team on case appreciated. PT & OT on case appreciated. Likely will need subacute rehab, will discuss with Social work Condition: guarded Disposition: Continue telemetry - Time Spent With Patient Total time spent is greater than 50% in coordination of care (as documented) at patient's floor/unit and/or counseling patient:
[2018-06-30] MEDS: ONDANSETRON 4 MG/2 ML VIAL IV PRN (00:26)
[2018-06-30] MEDS: DEXTROSE 5%-1/2NS W/10MEQ KCL 1,000 ML IV SCH ×3 (03:56→15:40)
[2018-06-30] MEDS: PIPERACILLIN SODIUM/TAZOBACTAM 3.375 GM in DEXTROSE 5% IN WATER 50 ML IV SCH ×3 (05:46→17:21)
[2018-06-30 05:51] LABS: Basophils # (Auto) 0 K/mcL (0.0-0.3); Basophils % (Auto) 0.2 % (0.0-2.0); Eosinophils # (Auto) 0.7 K/mcL (0.0-0.7); Granulocytes % (Auto) 73.5 % (38.0-78.0); Lymphocytes # (Auto) 1.4 K/mcL (1.5-4.8); Lymphocytes % (Auto) 12.3 % (15.5-49.0); Mean Cell Volume 90.5 fL (80.0-100.0); Mean Corpuscular HGB Conc 33.7 g/dL (31.0-36.0); Monocytes # (Auto) 0.9 K/mcL (0.1-0.9); Platelet Count 215 K/mcL (140-440); RBC 4.22 M/mcL (4.50-5.90); Red Cell Distribution Width 14.2 % (11.5-14.5)
[2018-06-30 06:15] LABS: Blood Urea Nitrogen 16 mg/dl (8-23)
[2018-06-30] MEDS: 0.9 % SODIUM CHLORIDE 10 ML SYRINGE IV SCH ×3 (07:16→22:59)
--- NOTE | 2018-06-30 07:24 | XRay Report ---
CLINICAL INFORMATION: F/U effusions COMPARISON: 06/28/2018 FINDINGS: NG tube remains in stable satisfactory position. Cardiomediastinal silhouette and pulmonary vessels are normal. Bibasilar airspace disease has almost totally cleared with minimal residual atelectasis. The right diaphragm is mildly elevated - as before. There are no effusions IMPRESSION: Minor bibasilar atelectasis. Mild elevation right diaphragm. No significant pleural effusions Interpreted and Authenticated by: Wilfredo Han 06/30/18
--- NOTE | 2018-06-30 07:27 | General Surgery Progress Note ---
Subjective Patient reports: pain is less (Patient seen at bedside. Fever spike 100.8 overnight. some nausea. ambulating, Flatus, using IS, able to urinate adequate amount) Narrative: Note initiated : 06/30/18 at 7:24 am Service Date, if different from initiated Date: [] Patient: Wesley Villeda 67 y/o M admitted on 06/25/18 for Laparoscopic Appendectomy Possible Open. Chief Complaint: [] Pertinent ROS: No current N/V, no current F/C/NS, pain controlled with pain meds Objective Temp Pulse Resp BP Pulse Ox 98.8 F 82 16 141/76 91 06/30/18 07:19 06/30/18 07:23 06/30/18 07:19 06/30/18 07:19 06/30/18 07:23 - Additional Data Intake & Output - Last 24 hours: Intake & Output 06/28/18 06/29/18 06/30/18 07/01/18 05:59 05:59 05:59 05:59 Intake Total 4579 / 4579 4459.0909 / 4459.0909 3659 / 3659 Output Total 1625 / 1625 5886 / 5886 830 / 830 150 / 150 Balance 2954 / 2954 -1426.9091 / -1426.9091 2829 / 2829 -150 / -150 Weight 231 lb 235 lb 3.2 oz 236 lb 9.6 oz - General physical appearance well developed, well nourished, no distress - Eyes normal ocular movement - ENT normal mucosa - Neck trachea midline - Respiratory normal expansion, normal respiratory effort, clear to auscultation - Cardiovascular Cardiovascular exam: Present: normal rate and rhythm - Abdomen soft (Distended-less than yesterday. NTTP, no rebound or guarding. surgical sites no erythema. Susie drain serous with serous fluid around susie.) - Psychiatric speech is normal - Additional Exam No LE leg pain - Labs 06/30/18 04:00 06/30/18 04:00 Diabetes panel 06/30/18 Range/Units 04:00 Sodium 138 (133-145) mmol/L Potassium 3.8 (3.3-5.1) mmol/L Chloride 100 (96-108) mmol/L Carbon Dioxide 29 (22-30) mmol/L BUN 16 (8-23) mg/dl Creatinine 1.0 (0.7-1.2) mg/dl Glucose 171 H (70-105) mg/dL Calcium 8.3 L (8.6-10.4) mg/dl Calcium panel 06/30/18 Range/Units 04:00 Calcium 8.3 L (8.6-10.4) mg/dl Phosphorus 2.8 (2.7-4.5) mg/dL Pituitary panel 06/30/18 Range/Units 04:00 Sodium 138 (133-145) mmol/L Potassium 3.8 (3.3-5.1) mmol/L Chloride 100 (96-108) mmol/L Carbon Dioxide 29 (22-30) mmol/L BUN 16 (8-23) mg/dl Creatinine 1.0 (0.7-1.2) mg/dl Glucose 171 H (70-105) mg/dL Calcium 8.3 L (8.6-10.4) mg/dl Adrenal panel 06/30/18 Range/Units 04:00 Sodium 138 (133-145) mmol/L Potassium 3.8 (3.3-5.1) mmol/L Chloride 100 (96-108) mmol/L Carbon Dioxide 29 (22-30) mmol/L BUN 16 (8-23) mg/dl Creatinine 1.0 (0.7-1.2) mg/dl Glucose 171 H (70-105) mg/dL Calcium 8.3 L (8.6-10.4) mg/dl - Imaging Chest x-ray: image reviewed (atelectasis at bases official report pending) Assessment and Plan (1) Acute appendicitis with perforation and generalized peritonitis Status: Acute Current Visit: Yes (2) Acute appendicitis Status: Acute Current Visit: Yes (3) Pulmonary embolism Status: Acute Current Visit: Yes (4) Hyperglycemia Status: Acute Current Visit: Yes - Narrative A/P Narrative: 67 yo male POD#5 for laparoscopic appendectomy for perforated appendicitis with generalized peritonitis, found to have segmental pulmonary embolism and resolving ileus. Neuro: Continue IV Tylenol and Toradol standing, Dilaudid prn severe pain. Cardiovascular: Continuous cardiac monitoring, Hydralazine prn Pulm: Continue incentive spirometer. O2 2 L NC prn, Duoneb q6. Therapeutic Lovenox. Am CXR. GI: Trial of clears Continue ngt clamped. Continue famotidine. Continue Reglan & zofran prn. Continue susie to bulb suction. Possible repeat CT scan abdomen in am ID: Continue Zosyn. : Hogue removed, patient able to void ENDO: Continue FSBS and RISS Hemonc: Lovenox 100mg sc q12 will switch to oral meds when able to tolerate PO MSK: PT on case appreciated FEN: D51/2+10kcl@125 with NS bolus prn, Multivitamins, am labs, OOB to chair, replace electrolytes prn GI Prophylaxis: Famotidine DVT Prophylaxis: SCD's On therapeutic lovenox Medical team on case appreciated. OT on case appreciated. Likely will need subacute rehab, will discuss with Social work Condition: guarded Disposition: Continue telemetry - Time Spent With Patient Total time spent is greater than 50% in coordination of care (as documented) at patient's floor/unit and/or counseling patient:
[2018-06-30] MEDS: DOCUSATE SODIUM 100 MG CAPSULE PO SCH ×2 (08:32→21:26)
[2018-06-30] MEDS: ENOXAPARIN 100 MG/ML SYRINGE SQ SCH ×2 (09:00→21:25)
[2018-06-30] MEDS: FAMOTIDINE/PF 20 MG/2 ML VIAL IV SCH (09:00)
[2018-06-30] MEDS: HYDROmorphone 2 MG/ML VIAL IV PRN ×4 (09:00→21:30)
[2018-06-30] MEDS: INSULIN LISPRO 1 UNIT/0.01 ML UNIT SQ SCH ×6 (09:02→21:43)
[2018-06-30] MEDS: MULTIVITAMINS,THERAPEUTIC 1 ML ORAL.SOL PT SCH (09:07)
[2018-06-30] MEDS: ACETAMINOPHEN 1,000 MG/100 ML BOTTLE IV SCH ×2 (09:10→21:24)
[2018-06-30] MEDS: PANTOPRAZOLE 40 MG VIAL IV SCH ×2 (09:31→17:20)
--- NOTE | 2018-06-30 12:43 | Internal Med Progress Note ---
Medical - PN: Subj Patient information: Note initiated : 06/30/18 at 12:37 pm Service Date, if different from initiated Date: [] Patient: Wesley Villeda a 67 y/o M admitted on 06/25/18 for Laparoscopic Appendectomy Possible Open. Chief Complaint: [] Interval history: Mr. Villeda is a 67 year old M Who presented with abdominal pain with associated nausea vomiting on the and found to have acute appendicitis. He had surgery the same day and underwent laparoscopic appendectomy and found to have a perforated appendicitis Intra-Op with generalized peritonitis. Postoperatively his bowels are slow to function and having urinary retention thus a Hogue was placed. He has been belching but has not been having any bowel movements or flatus. The he reported some mild shortness of breath but otherwise no new complaints. Later in the day nurse noticed him to be more labored on room air even though the patient did not particularly feel short of breath. His vital signs are taken as oxygen saturation was 88% on room air. Stat CTA of the chest was done which showed scattered pulmonary emboli in the right upper lobe. His heart rate remains in the 90s which is what he's typically been since he is been here. Blood pressure remained stable. The CTA report no cardiac strain. Patient will be moved to the unit for close monitoring and placed on therapeutic Lovenox. In speaking with the patient he denies any shortness of breath at this time and is without chest pain. He has some mild abdominal pain over the incision site but otherwise no other complaints. No coughing. 06/28 Nausea vomitus morning. NG placed with good output. No chest pain or shortness of breath. high O2 sats on 3L's. 06/29 Patient seen examined, no acute overnight issues, NG still in place, had BM today NO acute complaints reported. 06/30 Pt seen examined, no acute overnight issues, NG tube in place complains of abdominal pain. No chest pain or shortness of breath was a bit drowsy, had received pain medication before my visit. Pertinent ROS: Denies headache, dizziness Denies chest pain, palpitations Denies cough or shortness of breath Present abdominal pain, no vomiting, - Constitutional Vitals: Vital Signs Temp Pulse Resp BP Pulse Ox 98.6 F 74 16 120/69 95 06/30/18 12:11 06/30/18 12:11 06/30/18 12:00 06/30/18 12:11 06/30/18 12:11 Period Temp Pulse Resp BP Sys/Boudreaux Pulse Ox Last 24 Hr 97.6 F-100.8 F 72-82 16-20 112-147/69-91 90-96 Intake and Output 06/29/18 06/30/18 06/30/18 21:59 05:59 13:59 Intake Total 709 / 709 1240 / 1240 180 / 180 Output Total 325 / 325 200 / 200 325 / 325 Balance 384 / 384 1040 / 1040 -145 / -145 Weight 236 lb 9.6 oz Intake & Output: Intake & Output 06/29/18 06/30/18 06/30/18 21:59 05:59 13:59 Intake Total 709 / 709 1240 / 1240 180 / 180 Output Total 325 / 325 200 / 200 325 / 325 Balance 384 / 384 1040 / 1040 -145 / -145 Weight 236 lb 9.6 oz Intake: IV 709 / 709 1050 / 1050 150 / 150 Dextrose 5%-1/2Ns W/10Meq KCl 1 1000 / 1000 ,000 ml @ 125 mls/hr IV .Q8H [facility] Rx#:[id number] Zosyn 3.375 gm In Dextrose 5% 100 / 100 50 / 50 50 / 50 in Water 50 ml @ 100 mls/hr IV Q6H [facility] Rx#:[id number] Oral 140 / 140 Tube Feeding 30 / 30 Input, Drain Irrigation Amount 50 / 50 Right Lower Abdomen 50 / 50 Output: Gastric Drainage 100 / 100 NG/OG 100 / 100 Drainage 100 / 100 Right Lower Abdomen 100 / 100 Void Amount 125 / 125 200 / 200 325 / 325 Other: Urine Appearance Mucous Threads Clear Urine Color Dark Yellow Pale Stool Size Smear Stool Color Brown Stool Consistency Liquid Watery Loose # Voids 1 1 # Bowel Movements 0 Exam: Constitutional; Afebrile, cooperative, drowsy, not in distress. Respiratory system: Air Entry equal on both sides, No crackles or wheezing, no rhonchi. CVS- Rate rhythm regular, S1,S2 heard, no gallop, no rub. Abdomen- Soft distended abdomen, right lower quadrant tenderness present, hypoactive bowel tones, no guarding or rigidity, METAL [employer]ATER- AOOx3, moving all extremities, no gross focal deficit noted. Medical - PN: Obj Da - Labs CBC & Chem 7: 06/30/18 04:00 06/30/18 04:00 Labs: Abnormal Lab Results 06/30/18 06/30/18 06/30/18 09:43 04:00 04:00 WBC 11.7 H RBC 4.22 L Hgb 12.8 L Hct 38.1 L Gran % Lymph % (Auto) 12.3 L Eos % (Auto) Gran # 8.6 H Lymph # (Auto) 1.4 L Eos # (Auto) Potassium Glucose 171 H Calcium 8.3 L Phosphorus 2.3 L Albumin/Globulin Ratio Urine Protein Urine Glucose (UA) Urine Ketones Urine Occult Blood Urine Urobilinogen Urine RBC 06/29/18 06/29/18 06/28/18 03:44 03:44 04:20 WBC RBC 4.27 L Hgb 13.2 L Hct 38.4 L Gran % Lymph % (Auto) 11.2 L Eos % (Auto) 7.6 H Gran # Lymph # (Auto) 1.2 L Eos # (Auto) 0.8 H Potassium 3.2 L Glucose 168 H Calcium 8.3 L Phosphorus 2.5 L Albumin/Globulin Ratio Urine Protein 30 A Urine Glucose (UA) 50 A Urine Ketones 5/tr A Urine Occult Blood 0.03 A Urine Urobilinogen 2.0 A Urine RBC 35 H 06/28/18 06/28/18 03:53 03:53 WBC 12.1 H RBC 4.33 L Hgb 13.2 L Hct 39.1 L Gran % 81.1 H Lymph % (Auto) 7.9 L Eos % (Auto) Gran # 9.8 H Lymph # (Auto) 1.0 L Eos # (Auto) Potassium Glucose 193 H Calcium 8.5 L Phosphorus 1.9 L Albumin/Globulin Ratio 0.9 L Urine Protein Urine Glucose (UA) Urine Ketones Urine Occult Blood Urine Urobilinogen Urine RBC Meds: Medications Dextrose (Dextrose 50%) 0 ml IV UD PRN PRN Reason: Hypoglycemia Diagnostic Test (Pha) (Accu-Chek) 1 each FS ACHS [facility] Last Admin: 06/30/18 11:56 Dose: 1 each Docusate Sodium (Colace) 100 mg PO BID [facility] Last Admin: 06/30/18 08:32 Dose: Not Given Enoxaparin Sodium (Lovenox) 100 mg SQ BID [facility] Last Admin: 06/30/18 09:00 Dose: 100 mg Glucose (Insta-Glucose) 15 gm PO PRN PRN PRN Reason: Hypoglycemia Hydralazine HCl (Apresoline) 10 mg IV Q4-6HP PRN PRN Reason: Hypertension Hydromorphone HCl (Dilaudid) 0.5 mg IV Q2HP PRN PRN Reason: PAIN LEVEL > 6 Last Admin: 06/30/18 11:58 Dose: 0.5 mg Potassium Chloride/Dextrose/Sod Cl (Dextrose 5%-1/2ns W/10meq Kcl) 1,000 mls @ 125 mls/hr IV .Q8H [facility] Stop: 07/01/18 23:29 Last Admin: 06/30/18 11:56 Dose: Not Given Acetaminophen (Ofirmev) 1,000 mg in 100 mls @ 200 mls/hr IV Q12 [facility] Last Infusion: 06/30/18 11:49 Dose: Infused Piperacillin Sod/Tazobactam (Sod 3.375 gm/ Dextrose) 50 mls @ 100 mls/hr IV Q6H [facility] Last Admin: 06/30/18 11:55 Dose: 100 mls/hr Insulin Human Lispro (Humalog) 0 unit SQ ACHS [facility]; Protocol Last Admin: 06/30/18 11:56 Dose: Not Given Multivitamins (Thera-Plus) 5 ml PT DAILY [facility] Last Admin: 06/30/18 09:07 Dose: 5 ml Ondansetron HCl (Zofran) 4 mg IV Q6HP PRN PRN Reason: Nausea And Vomiting Last Admin: 06/30/18 00:26 Dose: 4 mg Pantoprazole Sodium (Protonix) 40 mg IV BIDAC [facility] Last Admin: 06/30/18 09:31 Dose: 40 mg Sodium Chloride (Saline Flush) 10 ml IV Q8 [facility] Last Admin: 06/30/18 07:16 Dose: Not Given Medical - PN: A/P - Time Spent With Patient Total time spent is greater than 50% in coordination of care (as documented) at patient's floor/unit and/or counseling patient: - Narrative A/P Narrative: A: Acute Pulmonary Embolus- Right sided, presently on therapeutic lovenox, will need to switch to newer NOAC or coumadin per insurance at discharge, total 6 months of anticoagulation planned Acute appendicitis with perforation and generalized peritonitis: s/p lap appy ( 06/25): management per surgery. WBC count up trending slowly, microbiology reviewed, pt is on zosyn. Ileus- Post op, management per surgery. NG tube still in place. Atelectasis:- Pulmonary toilet. Hypoxia due to above- wean off oxygen as tolerated Hypokalemia/Hypophosphatemia- Replace, stable lytes today. Medical - PN: Qual - VTE Deep Vein Thrombosis/Pulmonary Embolism Present on Admission: No
[2018-07-01] MEDS: DEXTROSE 5%-1/2NS W/10MEQ KCL 1,000 ML IV SCH ×4 (03:11→21:10)
[2018-07-01] MEDS: HYDROmorphone 2 MG/ML VIAL IV PRN ×5 (03:59→18:50)
[2018-07-01] MEDS: PIPERACILLIN SODIUM/TAZOBACTAM 3.375 GM in DEXTROSE 5% IN WATER 50 ML IV SCH ×5 (05:24→23:42)
[2018-07-01] MEDS: 0.9 % SODIUM CHLORIDE 10 ML SYRINGE IV SCH ×2 (05:26→21:19)
[2018-07-01 05:43] LABS: Basophils # (Auto) 0 K/mcL (0.0-0.3); Basophils % (Auto) 0.3 % (0.0-2.0); Eosinophils # (Auto) 0.6 K/mcL (0.0-0.7); Eosinophils % (Auto) 5.8 % (0.0-7.0); Granulocytes % (Auto) 73.1 % (38.0-78.0); Lymphocytes # (Auto) 1.4 K/mcL (1.5-4.8); Lymphocytes % (Auto) 12.4 % (15.5-49.0); Mean Cell Volume 90.2 fL (80.0-100.0); Monocytes # (Auto) 0.9 K/mcL (0.1-0.9); Monocytes % (Auto) 8.4 % (1.0-12.0); Platelet Count 243 K/mcL (140-440); RBC 4.06 M/mcL (4.50-5.90); Red Cell Distribution Width 13.6 % (11.5-14.5)
[2018-07-01 06:03] LABS: Blood Urea Nitrogen 14 mg/dl (8-23)
[2018-07-01] MEDS: ONDANSETRON 4 MG/2 ML VIAL IV PRN (07:24)
[2018-07-01] MEDS: PANTOPRAZOLE 40 MG VIAL IV SCH ×2 (07:24→16:28)
--- NOTE | 2018-07-01 07:37 | General Surgery Progress Note ---
Subjective Patient reports: no new complaints, pain is less (patient seen at bedside. States abdomen feels full, NGT clamped since last night 700ml output this am. urinating well. denies flatus.) Narrative: Note initiated : 07/01/18 at 7:34 am Service Date, if different from initiated Date: [] Patient: Wesley Villeda 67 y/o M admitted on 06/25/18 for Laparoscopic Appendectomy Possible Open. Chief Complaint: [] Pertinent ROS: Denies N/V/D, no flatus, no current abdominal pain or CP or SOB Objective Temp Pulse Resp BP Pulse Ox 99.9 F H 73 18 124/72 92 07/01/18 04:17 07/01/18 04:17 07/01/18 04:17 07/01/18 04:17 07/01/18 04:17 - Additional Data Intake & Output - Last 24 hours: Intake & Output 06/29/18 06/30/18 07/01/18 07/02/18 05:59 05:59 05:59 05:59 Intake Total 4459.0909 / 4459.0909 3659 / 3659 2610 / 2610 Output Total 5886 / 5886 830 / 830 1575 / 1575 Balance -1426.9091 / -1426.9091 2829 / 2829 1035 / 1035 Weight 235 lb 3.2 oz 236 lb 9.6 oz 231 lb 14.4 oz - General physical appearance well developed, no distress - ENT normal mucosa - Respiratory clear to auscultation - Abdomen soft (distended, NTTP, no rebound or guarding. SUSIE in place serosanguenous output with leakage around site) - Integumentary no rash - Psychiatric oriented to time, oriented to person, oriented to place - Labs 07/01/18 03:45 07/01/18 03:45 Diabetes panel 07/01/18 Range/Units 03:45 Sodium 139 (133-145) mmol/L Potassium 3.6 (3.3-5.1) mmol/L Chloride 102 (96-108) mmol/L Carbon Dioxide 28 (22-30) mmol/L BUN 14 (8-23) mg/dl Creatinine 1.1 (0.7-1.2) mg/dl Glucose 159 H (70-105) mg/dL Calcium 8.2 L (8.6-10.4) mg/dl Calcium panel 06/30/18 07/01/18 Range/Units 09:43 03:45 Calcium 8.2 L (8.6-10.4) mg/dl Phosphorus 2.3 L (2.7-4.5) mg/dL Pituitary panel 07/01/18 Range/Units 03:45 Sodium 139 (133-145) mmol/L Potassium 3.6 (3.3-5.1) mmol/L Chloride 102 (96-108) mmol/L Carbon Dioxide 28 (22-30) mmol/L BUN 14 (8-23) mg/dl Creatinine 1.1 (0.7-1.2) mg/dl Glucose 159 H (70-105) mg/dL Calcium 8.2 L (8.6-10.4) mg/dl Adrenal panel 07/01/18 Range/Units 03:45 Sodium 139 (133-145) mmol/L Potassium 3.6 (3.3-5.1) mmol/L Chloride 102 (96-108) mmol/L Carbon Dioxide 28 (22-30) mmol/L BUN 14 (8-23) mg/dl Creatinine 1.1 (0.7-1.2) mg/dl Glucose 159 H (70-105) mg/dL Calcium 8.2 L (8.6-10.4) mg/dl Assessment and Plan (1) Acute appendicitis with perforation and generalized peritonitis Status: Acute Current Visit: Yes (2) Acute appendicitis Status: Acute Current Visit: Yes (3) Pulmonary embolism Status: Acute Current Visit: Yes (4) Hyperglycemia Status: Acute Current Visit: Yes - Narrative A/P Narrative: A/P Narrative: 67 yo male POD#6 for laparoscopic appendectomy for perforated appendicitis with generalized peritonitis, found to have segmental pulmonary embolism and resolving ileus. Neuro: Continue IV Tylenol and Toradol standing, Dilaudid prn severe pain. Cardiovascular: Continuous cardiac monitoring, Hydralazine prn Pulm: Continue incentive spirometer. O2 2 L NC prn, Duoneb q6. Therapeutic Lovenox. Am CXR. GI: Trial of clears Continue ngt clamped. Continue famotidine. Continue Reglan & zofran prn. Continue susie to bulb suction. CT scan abdomen ID: Continue Zosyn. : Hogue removed, patient able to void ENDO: Continue FSBS and RISS Hemonc: Lovenox 100mg sc q12 will switch to oral meds when able to tolerate PO MSK: PT on case appreciated FEN: D51/2+10kcl@125 with NS bolus prn, Multivitamins, am labs, OOB to chair, replace electrolytes prn, Possible TPN will have PICC line placed. GI Prophylaxis: Famotidine DVT Prophylaxis: SCD's On therapeutic lovenox Medical team on case appreciated. OT on case appreciated. Likely will need subacute rehab, will discuss with Social work Condition: guarded Disposition: Continue telemetry - Time Spent With Patient Total time spent is greater than 50% in coordination of care (as documented) at patient's floor/unit and/or counseling patient:
[2018-07-01] MEDS ORDERED: TPN PER PHARMACY IV SCH (07:39)
[2018-07-01] MEDS: INSULIN LISPRO 1 UNIT/0.01 ML UNIT SQ SCH ×3 (09:20→23:43)
[2018-07-01] MEDS: ENOXAPARIN 100 MG/ML SYRINGE SQ SCH ×2 (10:00→21:18)
[2018-07-01] MEDS: ACETAMINOPHEN 1,000 MG/100 ML BOTTLE IV SCH ×2 (10:00→21:18)
[2018-07-01] MEDS: MULTIVITAMINS,THERAPEUTIC 1 ML ORAL.SOL PT SCH (12:00)
[2018-07-01] MEDS: DOCUSATE SODIUM 100 MG CAPSULE PO SCH ×2 (13:00→21:17)
--- NOTE | 2018-07-01 13:07 | Cat Scan Report ---
CLINICAL INFORMATION: Six day status post appendectomy. Persistent pain. COMPARISON: Preoperative normal abdomen and pelvic CT - 06/25/2018 TECHNIQUE: Following enteric contrast, 80 cc of Isovue-300 were injected intravenously, and 60 seconds later, 0.625 mm helical slices were obtained from the mid heart through the subtrochanteric regions. Following reconstruction, 2.5 mm sagittal, coronal and axial reformatted images were processed and reviewed at bone, lung and soft tissue windows. Five minutes later, 0.625 mm helical slices were obtained from the mid heart through the kidneys and viewed at soft tissue windows.The exam was performed using radiation dose optimization techniques including, but not limited to, automated exposure control, adjustment of the mA and/or kV according to patient size and use of iterative reconstruction technique. FINDINGS: Lung bases show complete atelectasis of the posterior and lateral basilar segments of the right lower lobe and subsegmental atelectasis scattered throughout both lower lobes, right middle lobe and lingula. Small small right pleural effusion has developed. The visualized heart is mildly large with moderate fibrofatty and calcific plaque in the visualized coronary arteries Images through the abdomen show a 2.4 cm simple cyst in the inferior right hepatic lobe. Mild diffuse fatty changes noted. Multiple stones within the gallbladder again noted. Gallbladder is otherwise normal without evidence of cholecystitis.The intrahepatic and intrahepatic ducts are normal caliber: CBD is 6 mm. Both Kidneys, adrenal glands, spleen, pancreas, and aorta, including aortic branches, are normal in size, configuration and attenuation without focal lesion. There is no free air or adenopathy. Images of the pelvis show prostate, seminal vesicles and urinary bladder are unremarkable. The stomach, duodenum and multiple loops of proximal jejunum are moderately dilated to a transition point in the right upper quadrant. Obstruction appears to be due to adhesions or stricture. The distal jejunum, ileum and colon are all markedly decompressed. A drain is seen in the surgical site in the right lower quadrant. There is no fluid around the drain. There is, however, a 2.6 cm thin-walled fluid collection in the retroperitoneum of the false pelvis (image 137) which is likely a seroma. A larger 7 cm fluid collection in the anterior pararectal region could represent seroma or abscess. Bone windows show no osseous abnormality IMPRESSION: 1. High-grade partial small bowel obstruction the mid jejunum that right upper quadrant due to adhesion or stricture. The distal small bowel and colon are decompressed. No evidence of ischemia or free air. 2. 7 cm fluid collection in the anterior perirectal region of the true pelvis. Seroma versus abscess. 2.6 cm fluid collection, likely seroma, in the retroperitoneal right lower quadrant. Appendix is now surgically absent. 3. Cholelithiasis. Gallbladder and bile ducts are otherwise normal 4. 2.4 cm simple cyst inferior right hepatic lobe - and previously seen 5. Complete atelectasis of the posterior and lateral basilar segments of the right lower lobe - likely related to mucous plugging activity. This is new. Interpreted and Authenticated by: Wilfredo Han 07/01/18
--- NOTE | 2018-07-01 13:53 | XRay Report ---
CLINICAL INFORMATION: PICC PLACEMENT COMPARISON: 06/30/2018 FINDINGS: Right PICC line tip overlies the SVC right atrial junction. Cardiomediastinal silhouette and pulmonary vessels are normal. NG tube in stable satisfactory position. Moderate elevation right diaphragm is chronic. Subsegmental atelectasis noted in both lower lobes - stable IMPRESSION: PICC line tip overlies the SVC right atrial junction in satisfactory position. Minor bibasilar atelectasis and chronic elevation right diaphragm - stable Interpreted and Authenticated by: Wilfredo Han 07/01/18
--- NOTE | 2018-07-01 14:39 | Internal Med Progress Note ---
Medical - PN: Subj Patient information: Note initiated : 07/01/18 at 2:36 pm Service Date, if different from initiated Date: [] Patient: Wesley Villeda a 67 y/o M admitted on 06/25/18 for Laparoscopic Appendectomy Possible Open. Chief Complaint: [] Interval history: Mr. Villeda is a 67 year old M Who presented with abdominal pain with associated nausea vomiting on the and found to have acute appendicitis. He had surgery the same day and underwent laparoscopic appendectomy and found to have a perforated appendicitis Intra-Op with generalized peritonitis. Postoperatively his bowels are slow to function and having urinary retention thus a Hogue was placed. He has been belching but has not been having any bowel movements or flatus. The he reported some mild shortness of breath but otherwise no new complaints. Later in the day nurse noticed him to be more labored on room air even though the patient did not particularly feel short of breath. His vital signs are taken as oxygen saturation was 88% on room air. Stat CTA of the chest was done which showed scattered pulmonary emboli in the right upper lobe. His heart rate remains in the 90s which is what he's typically been since he is been here. Blood pressure remained stable. The CTA report no cardiac strain. Patient will be moved to the unit for close monitoring and placed on therapeutic Lovenox. In speaking with the patient he denies any shortness of breath at this time and is without chest pain. He has some mild abdominal pain over the incision site but otherwise no other complaints. No coughing. 06/28 Nausea vomitus morning. NG placed with good output. No chest pain or shortness of breath. high O2 sats on 3L's. 06/29 Patient seen examined, no acute overnight issues, NG still in place, had BM today NO acute complaints reported. 06/30 Pt seen examined, no acute overnight issues, NG tube in place complains of abdominal pain. No chest pain or shortness of breath was a bit drowsy, had received pain medication before my visit. 07/01 pt seen examined, no acute oernight issues, WBC better CT shows SBO partial, PICC to be placed, TPN to be started atelectasis noted, start on acapella Pertinent ROS: Denies headache, dizziness Denies chest pain, palpitations Denies cough or shortness of breath Present abdominal pain, nausea or vomiting. - Constitutional Vitals: Vital Signs Temp Pulse Resp BP Pulse Ox 99 F 73 20 121/71 94 07/01/18 11:34 07/01/18 04:17 07/01/18 11:34 07/01/18 11:34 07/01/18 11:34 Period Temp Pulse Resp BP Sys/Boudreaux Pulse Ox Last 24 Hr 98.8 F-100.5 F 69-74 16-20 121-141/71-81 90-96 Intake and Output 07/01/18 07/01/18 07/01/18 05:59 13:59 21:59 Intake Total 1150 / 1150 1000 / 1000 Output Total 250 / 250 800 / 800 Balance 900 / 900 200 / 200 Weight 231 lb 14.4 oz Patient Weight 07/02/18 05:59 Weight 231 lb 14.4 oz Intake & Output: Intake & Output 07/01/18 07/01/18 07/01/18 05:59 13:59 21:59 Intake Total 1150 / 1150 1000 / 1000 Output Total 250 / 250 800 / 800 Balance 900 / 900 200 / 200 Weight 231 lb 14.4 oz Intake: IV 1150 / 1150 1000 / 1000 Dextrose 5%-1/2Ns W/10Meq KCl 1 1000 / 1000 1000 / 1000 ,000 ml @ 125 mls/hr IV .Q8H [facility] Rx#:[id number] Zosyn 3.375 gm In Dextrose 5% 50 / 50 in Water 50 ml @ 100 mls/hr IV Q6H [facility] Rx#:[id number] Output: Gastric Drainage 250 / 250 800 / 800 NG/OG 250 / 250 800 / 800 Exam: Constitutional; Afebrile, cooperative, alert, not in distress. Eyes- No icterus, , No periorbital swelling Ears- Ext ear normal, hearing normal to conversation. Neck- Midline trachea, supple Respiratory system: Air Entry equal on both sides, No crackles or wheezing, no rhonchi. CVS- Rate rhythm regular, S1,S2 heard, no gallop, no rub. Abdomen- soft distended abdomen, rlq tenderness, hypoactive bowel tones. no guarding or rigidity, CHART [employer]ER- AOOx3, moving all extremities, no gross focal deficit noted. Medical - PN: Obj Da - Labs CBC & Chem 7: 07/01/18 03:45 07/01/18 03:45 Labs: Abnormal Lab Results 07/01/18 07/01/18 06/30/18 03:45 03:45 09:43 WBC RBC 4.06 L Hgb 12.5 L Hct 36.6 L Lymph % (Auto) 12.4 L Eos % (Auto) Gran # Lymph # (Auto) 1.4 L Eos # (Auto) Potassium Glucose 159 H Calcium 8.2 L Phosphorus 2.3 L 06/30/18 06/30/18 06/29/18 04:00 04:00 03:44 WBC 11.7 H RBC 4.22 L Hgb 12.8 L Hct 38.1 L Lymph % (Auto) 12.3 L Eos % (Auto) Gran # 8.6 H Lymph # (Auto) 1.4 L Eos # (Auto) Potassium 3.2 L Glucose 171 H 168 H Calcium 8.3 L 8.3 L Phosphorus 2.5 L 06/29/18 03:44 WBC RBC 4.27 L Hgb 13.2 L Hct 38.4 L Lymph % (Auto) 11.2 L Eos % (Auto) 7.6 H Gran # Lymph # (Auto) 1.2 L Eos # (Auto) 0.8 H Potassium Glucose Calcium Phosphorus Meds: Medications Dextrose (Dextrose 50%) 0 ml IV UD PRN PRN Reason: Hypoglycemia Diagnostic Test (Pha) (Accu-Chek) 1 each FS Q6 [facility] Docusate Sodium (Colace) 100 mg PO BID [facility] Last Admin: 06/30/18 21:26 Dose: 100 mg Enoxaparin Sodium (Lovenox) 100 mg SQ BID [facility] Last Admin: 06/30/18 21:25 Dose: 100 mg Glucose (Insta-Glucose) 15 gm PO PRN PRN PRN Reason: Hypoglycemia Heparin Sodium (Porcine) (Heparin Flush) 2 ml IV Q12 [facility] Hydralazine HCl (Apresoline) 10 mg IV Q4-6HP PRN PRN Reason: Hypertension Hydromorphone HCl (Dilaudid) 0.5 mg IV Q2HP PRN PRN Reason: PAIN LEVEL > 6 Last Admin: 07/01/18 12:54 Dose: 0.5 mg Potassium Chloride/Dextrose/Sod Cl (Dextrose 5%-1/2ns W/10meq Kcl) 1,000 mls @ 125 mls/hr IV .Q8H [facility] Stop: 07/01/18 23:29 Last Admin: 07/01/18 09:12 Dose: 125 mls/hr Acetaminophen (Ofirmev) 1,000 mg in 100 mls @ 200 mls/hr IV Q12 [facility] Last Infusion: 06/30/18 22:55 Dose: Infused Piperacillin Sod/Tazobactam (Sod 3.375 gm/ Dextrose) 50 mls @ 100 mls/hr IV Q6H [facility] Last Admin: 07/01/18 05:24 Dose: 100 mls/hr Calcium Gluconate 5 meq/Magnesium Sulfate 8.12 meq/Sodium Chloride 20 meq/ Potassium Chloride 40 meq/Multivitamins/Minerals 10 ml/Selenium 60 mcg/ Amino Acids 1,049.2526 mls @ 35 mls/hr IV Q24H [facility] Fat Emulsion Intravenous 250 (ml/ Premix) 250 mls @ 25 mls/hr IV [id number] [facility] Insulin Human Lispro (Humalog) 0 unit SQ Q6 [facility]; Protocol Multivitamins (Thera-Plus) 5 ml PT DAILY [facility] Last Admin: 06/30/18 09:07 Dose: 5 ml Ondansetron HCl (Zofran) 4 mg IV Q6HP PRN PRN Reason: Nausea And Vomiting Last Admin: 07/01/18 07:24 Dose: 4 mg Pantoprazole Sodium (Protonix) 40 mg IV BIDAC [facility] Last Admin: 07/01/18 07:24 Dose: 40 mg Sodium Chloride (Saline Flush) 10 ml IV UD PRN PRN Reason: FLUSH Sodium Chloride (Saline Flush) 10 ml IV Q12 [facility] Medical - PN: A/P - Time Spent With Patient Total time spent is greater than 50% in coordination of care (as documented) at patient's floor/unit and/or counseling patient: - Narrative A/P Narrative: A: Acute Pulmonary Embolus- Right sided, presently on therapeutic lovenox, will need to switch to newer NOAC or coumadin per insurance at discharge, total 6 months of anticoagulation planned. Patient is on room air. Acute appendicitis with perforation and generalized peritonitis: s/p lap appy ( 06/25): management per surgery. WBC count stable, microbiology reviewed, pt is on zosyn. CT noted, likely serous fluid collectin in abdomen. Ileus- Post op, management per surgery. NG tube still in place. SBO/ high grade ? partial - NG in place Atelectasis:- Pulmonary toilet/ acapella to start, pt may not be able to do incentive spirometer well Hypoxia due to above- off oxygen. Hypokalemia/Hypophosphatemia- Replace, Nutrition- TPN to be started DVT on enoxaaparin FUll code. Medical - PN: Qual - VTE Deep Vein Thrombosis/Pulmonary Embolism Present on Admission: No
[2018-07-01] MEDS ORDERED: CALCIUM GLUCONATE 5 MEQ, MAGNESIUM SULFATE 8.12 MEQ, SODIUM CHLORIDE 20 MEQ, POTASSIUM ... IV SCH (15:00)
[2018-07-01] MEDS: FAT EMULSION 20% 250 ML in PREMIX 1 BAG IV SCH (15:43)
[2018-07-01] MEDS: 0.45 % SODIUM CHLORIDE 1,000 ML IV SCH (21:15)
[2018-07-02] MEDS: HYDROmorphone 2 MG/ML VIAL IV PRN ×6 (01:22→19:11)
[2018-07-02 05:38] LABS: Basophils # (Auto) 0 K/mcL (0.0-0.3); Basophils % (Auto) 0.2 % (0.0-2.0); Eosinophils # (Auto) 0.6 K/mcL (0.0-0.7); Eosinophils % (Auto) 7.1 % (0.0-7.0); Granulocytes % (Auto) 72.7 % (38.0-78.0); Lymphocytes # (Auto) 1.1 K/mcL (1.5-4.8); Lymphocytes % (Auto) 12.3 % (15.5-49.0); Mean Cell Volume 90.6 fL (80.0-100.0); Mean Corpuscular HGB Conc 33.3 g/dL (31.0-36.0); Monocytes # (Auto) 0.7 K/mcL (0.1-0.9); Monocytes % (Auto) 7.7 % (1.0-12.0); Platelet Count 227 K/mcL (140-440); RBC 4.06 M/mcL (4.50-5.90); Red Cell Distribution Width 13.6 % (11.5-14.5)
[2018-07-02] MEDS: INSULIN LISPRO 1 UNIT/0.01 ML UNIT SQ SCH ×4 (05:43→23:58)
[2018-07-02] MEDS: PIPERACILLIN SODIUM/TAZOBACTAM 3.375 GM in DEXTROSE 5% IN WATER 50 ML IV SCH ×4 (05:43→23:52)
[2018-07-02] MEDS: PANTOPRAZOLE 40 MG VIAL IV SCH ×2 (07:31→16:28)
--- NOTE | 2018-07-02 07:31 | XRay Report ---
CLINICAL INFORMATION: F/u sbo COMPARISON: Abdomen pelvic CT one day prior 24/12/2017 FINDINGS: NG tube tip overlies the gastric body. The stomach and multiple loops of proximal small bowel show decrease in caliber since yesterday's study. There is only small amounts of gas in the distal small bowel and colon. No free air. IMPRESSION: Slight improvement in partial mid jejunal obstruction pattern. Interpreted and Authenticated by: Wilfredo Han 07/02/18
[2018-07-02 08:43] LABS: ALT/SGPT 32 U/l (0-40); Albumin 2.7 gm/dL (3.2-5.2); Albumin/Globulin Ratio 0.8 (1.0-2.3); Alkaline Phosphatase 49 U/L (39-117); Bilirubin,Direct < 0.2 mg/dL (0.0-0.3); Blood Urea Nitrogen 10 mg/dl (8-23); Gamma Glutamyl Transpeptidase 32 U/L (8-61); Uric Acid 2.5 mg/dL (2.5-8.0)
[2018-07-02] MEDS: ENOXAPARIN 100 MG/ML SYRINGE SQ SCH ×2 (10:16→21:03)
[2018-07-02] MEDS: ACETAMINOPHEN 1,000 MG/100 ML BOTTLE IV SCH ×2 (10:16→21:04)
[2018-07-02] MEDS: 0.9 % SODIUM CHLORIDE 10 ML SYRINGE IV SCH ×2 (10:17→21:05)
[2018-07-02] MEDS: DOCUSATE SODIUM 100 MG CAPSULE PO SCH ×2 (10:17→21:02)
[2018-07-02] MEDS: MULTIVITAMINS,THERAPEUTIC 1 ML ORAL.SOL PT SCH (10:17)
--- NOTE | 2018-07-02 10:20 | General Surgery Progress Note ---
Subjective Patient reports: no flatus (Patient seen at bedside, No Flatus or BM. No events overnight. ambulating, NG tube with over 1500mL/24hour ) Narrative: Note initiated : 07/02/18 at 10:16 am Service Date, if different from initiated Date: [] Patient: Wesley Villeda 67 y/o M admitted on 06/25/18 for Laparoscopic Appendectomy Possible Open. Chief Complaint: [] Pertinent ROS: No BM, No N/VNo F/C/NS, No SOB/CP, minimal abdominal pain Objective Temp Pulse Resp BP Pulse Ox 98.4 F 61 18 122/74 94 07/02/18 04:00 07/02/18 04:00 07/02/18 04:00 07/02/18 04:00 07/02/18 04:00 - Additional Data Intake & Output - Last 24 hours: Intake & Output 06/30/18 07/01/18 07/02/18 07/03/18 05:59 05:59 05:59 05:59 Intake Total 3659 / 3659 2660 / 2660 2600 / 2600 Output Total 830 / 830 1575 / 1575 4130 / 4130 Balance 2829 / 2829 1085 / 1085 -1530 / -1530 Weight 236 lb 9.6 oz 231 lb 14.4 oz 235 lb 12.8 oz - General physical appearance well developed, well nourished - ENT normal mucosa - Neck trachea midline - Respiratory clear to auscultation - Cardiovascular Cardiovascular exam: Present: normal rate and rhythm - Abdomen soft (less distended than yesterday. No rebound or guarding. SUSIE in place serous fluid output.) - Psychiatric oriented to time, oriented to person, oriented to place - Labs 07/02/18 04:00 07/02/18 07:31 Diabetes panel 07/02/18 07/02/18 Range/Units 04:00 07:31 Sodium TNP 137 Potassium TNP 3.8 Chloride TNP 102 Carbon Dioxide TNP 27 BUN TNP 10 Creatinine TNP 0.9 Glucose TNP 183 H Calcium TNP 8.1 L AST TNP 18 ALT TNP 32 Alkaline Phosphatase TNP 49 Total Protein TNP 6.2 Albumin TNP 2.7 L Triglycerides TNP 162 H Calcium panel 07/02/18 07/02/18 Range/Units 04:00 07:31 Calcium TNP 8.1 L Phosphorus TNP 2.8 Albumin TNP 2.7 L Pituitary panel 07/02/18 07/02/18 Range/Units 04:00 07:31 Sodium TNP 137 Potassium TNP 3.8 Chloride TNP 102 Carbon Dioxide TNP 27 BUN TNP 10 Creatinine TNP 0.9 Glucose TNP 183 H Calcium TNP 8.1 L Adrenal panel 07/02/18 07/02/18 Range/Units 04:00 07:31 Sodium TNP 137 Potassium TNP 3.8 Chloride TNP 102 Carbon Dioxide TNP 27 BUN TNP 10 Creatinine TNP 0.9 Glucose TNP 183 H Calcium TNP 8.1 L Total Bilirubin TNP 0.5 AST TNP 18 ALT TNP 32 Alkaline Phosphatase TNP 49 Total Protein TNP 6.2 Albumin TNP 2.7 L Assessment and Plan (1) Acute appendicitis with perforation and generalized peritonitis Status: Acute Current Visit: Yes (2) Acute appendicitis Status: Acute Current Visit: Yes (3) Pulmonary embolism Status: Acute Current Visit: Yes (4) Hyperglycemia Status: Acute Current Visit: Yes - Narrative A/P Narrative: 67 yo male POD#7 for laparoscopic appendectomy for perforated appendicitis with generalized peritonitis, found to have segmental pulmonary embolism and resolving ileus. Neuro: Continue IV Tylenol and Toradol standing, Dilaudid prn severe pain. Cardiovascular: Continuous cardiac monitoring, Hydralazine prn Pulm: Continue incentive spirometer. O2 2 L NC prn, Duoneb q6. Therapeutic Lovenox. Am CXR. GI: Continue ngt to LWS. Continue famotidine. Continue Reglan & zofran prn. Continue susie to bulb suction. upper Gi series ID: Continue Zosyn. : Hogue removed, patient able to void ENDO: Continue FSBS and RISS Hemonc: Lovenox 100mg sc q12 will switch to oral meds when able to tolerate PO MSK: PT on case appreciated FEN: TPN started, Multivitamins, am labs, OOB to chair, replace electrolytes prn GI Prophylaxis: Famotidine DVT Prophylaxis: SCD's On therapeutic lovenox Medical team on case appreciated. OT on case appreciated. Likely will need subacute rehab, will discuss with Social work Condition: guarded Disposition: Continue telemetry - Time Spent With Patient Total time spent is greater than 50% in coordination of care (as documented) at patient's floor/unit and/or counseling patient:
[2018-07-02] MEDS ORDERED: FLEETS ADULT ENEMA PR PRN (12:33)
--- NOTE | 2018-07-02 12:33 | Internal Med Progress Note ---
Medical - PN: Subj Patient information: Note initiated : 07/02/18 at 12:31 pm Service Date, if different from initiated Date: [] Patient: Wesley Villeda a 67 y/o M admitted on 06/25/18 for Laparoscopic Appendectomy Possible Open. Chief Complaint: [] Interval history: Mr. Villeda is a 67 year old M Who presented with abdominal pain with associated nausea vomiting on the and found to have acute appendicitis. He had surgery the same day and underwent laparoscopic appendectomy and found to have a perforated appendicitis Intra-Op with generalized peritonitis. Postoperatively his bowels are slow to function and having urinary retention thus a Hogue was placed. He has been belching but has not been having any bowel movements or flatus. The he reported some mild shortness of breath but otherwise no new complaints. Later in the day nurse noticed him to be more labored on room air even though the patient did not particularly feel short of breath. His vital signs are taken as oxygen saturation was 88% on room air. Stat CTA of the chest was done which showed scattered pulmonary emboli in the right upper lobe. His heart rate remains in the 90s which is what he's typically been since he is been here. Blood pressure remained stable. The CTA report no cardiac strain. Patient will be moved to the unit for close monitoring and placed on therapeutic Lovenox. In speaking with the patient he denies any shortness of breath at this time and is without chest pain. He has some mild abdominal pain over the incision site but otherwise no other complaints. No coughing. 06/28 Nausea vomitus morning. NG placed with good output. No chest pain or shortness of breath. high O2 sats on 3L's. 06/29 Patient seen examined, no acute overnight issues, NG still in place, had BM today NO acute complaints reported. 06/30 Pt seen examined, no acute overnight issues, NG tube in place complains of abdominal pain. No chest pain or shortness of breath was a bit drowsy, had received pain medication before my visit. 07/01 pt seen examined, no acute oernight issues, WBC better CT shows SBO partial, PICC to be placed, TPN to be started atelectasis noted, start on acapella 07/02 Pt seen examined, still has abdominal pain no bowel movements, X ray shows ileus./ sbo surgery following. labs stable Pertinent ROS: Denies headache, dizziness Denies chest pain, palpitations Denies cough or shortness of breath present abdominal pain - Constitutional Vitals: Vital Signs Temp Pulse Resp BP Pulse Ox 98.4 F 61 20 127/78 94 07/02/18 11:01 07/02/18 04:00 07/02/18 08:00 07/02/18 08:00 07/02/18 08:00 Period Temp Pulse Resp BP Sys/[place] Pulse Ox Last 24 Hr 97.9 F-99.1 F 61-68 18-20 110-144/69-78 94-96 Intake and Output 07/01/18 07/02/18 07/02/18 21:59 05:59 13:59 Intake Total 1200 / 1200 300 / 300 150 / 150 Output Total 1000 / 1000 1390 / 1390 2350 / 2350 Balance 200 / 200 -1090 / -1090 -2200 / -2200 Weight 235 lb 12.8 oz Intake & Output: Intake & Output 07/01/18 07/02/18 07/02/18 21:59 05:59 13:59 Intake Total 1200 / 1200 300 / 300 150 / 150 Output Total 1000 / 1000 1390 / 1390 2350 / 2350 Balance 200 / 200 -1090 / -1090 -2200 / -2200 Weight 235 lb 12.8 oz Intake: IV 1200 / 1200 300 / 300 150 / 150 Dextrose 5%-1/2Ns W/10Meq KCl 1 1000 / 1000 ,000 ml @ 125 mls/hr IV .Q8H [facility] Rx#:[id number] Intralipid 20% 250 ml In Premix 250 / 250 1 Bag @ 25 mls/hr IV MoWeFr@ 1600 [facility] Rx#:[id number] Zosyn 3.375 gm In Dextrose 5% 100 / 100 50 / 50 50 / 50 in Water 50 ml @ 100 mls/hr IV Q6H [facility] Rx#:[id number] Oral 0 / 0 Output: Gastric Drainage 1000 / 1000 700 / 700 1700 / 1700 NG/OG 1000 / 1000 700 / 700 1700 / 1700 Drainage 40 / 40 50 / 50 Right Lower Abdomen 40 / 40 50 / 50 Void Amount 650 / 650 600 / 600 Other: # Voids 1 Exam: Constitutional; Afebrile, cooperative, alert, not in distress. Eyes- No icterus, , No periorbital swelling Ears- Ext ear normal, hearing normal to conversation. Neck- Midline trachea, supple Respiratory system: Air Entry equal on both sides, No crackles or wheezing, no rhonchi. CVS- Rate rhythm regular, S1,S2 heard, no gallop, no rub. Abdomen-distended abdomen, rlq tenderness, hypoactive bowel tones. 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 Edema noted on dependent regions. Medical - PN: Obj Da - Labs CBC & Chem 7: 07/02/18 04:00 07/02/18 07:31 Labs: Abnormal Lab Results 07/02/18 07/02/18 07/01/18 07:31 04:00 03:45 WBC RBC 4.06 L Hgb 12.3 L Hct 36.7 L Lymph % (Auto) 12.3 L Eos % (Auto) 7.1 H Gran # Lymph # (Auto) 1.1 L Glucose 183 H 159 H Calcium 8.1 L 8.2 L Phosphorus Albumin 2.7 L Albumin/Globulin Ratio 0.8 L Triglycerides 162 H 07/01/18 06/30/18 06/30/18 03:45 09:43 04:00 WBC RBC 4.06 L Hgb 12.5 L Hct 36.6 L Lymph % (Auto) 12.4 L Eos % (Auto) Gran # Lymph # (Auto) 1.4 L Glucose 171 H Calcium 8.3 L Phosphorus 2.3 L Albumin Albumin/Globulin Ratio Triglycerides 06/30/18 04:00 WBC 11.7 H RBC 4.22 L Hgb 12.8 L Hct 38.1 L Lymph % (Auto) 12.3 L Eos % (Auto) Gran # 8.6 H Lymph # (Auto) 1.4 L Glucose Calcium Phosphorus Albumin Albumin/Globulin Ratio Triglycerides Meds: Medications Dextrose (Dextrose 50%) 0 ml IV UD PRN PRN Reason: Hypoglycemia Diagnostic Test (Pha) (Accu-Chek) 1 each FS Q6 [facility] Last Admin: 07/02/18 07:32 Dose: 1 each Docusate Sodium (Colace) 100 mg PO BID [facility] Last Admin: 07/02/18 10:17 Dose: Not Given Enoxaparin Sodium (Lovenox) 100 mg SQ BID [facility] Last Admin: 07/02/18 10:16 Dose: 100 mg Glucose (Insta-Glucose) 15 gm PO PRN PRN PRN Reason: Hypoglycemia Heparin Sodium (Porcine) (Heparin Flush) 2 ml IV Q12 [facility] Last Admin: 07/02/18 07:31 Dose: 2 ml Hydralazine HCl (Apresoline) 10 mg IV Q4-6HP PRN PRN Reason: Hypertension Hydromorphone HCl (Dilaudid) 0.5 mg IV Q2HP PRN PRN Reason: PAIN LEVEL > 6 Last Admin: 07/02/18 11:13 Dose: 0.5 mg Acetaminophen (Ofirmev) 1,000 mg in 100 mls @ 200 mls/hr IV Q12 [facility] Last Infusion: 07/02/18 11:14 Dose: Infused Piperacillin Sod/Tazobactam (Sod 3.375 gm/ Dextrose) 50 mls @ 100 mls/hr IV Q6H [facility] Last Admin: 07/02/18 11:19 Dose: 100 mls/hr Calcium Gluconate 5 meq/Magnesium Sulfate 8.12 meq/Sodium Chloride 20 meq/ Potassium Chloride 40 meq/Multivitamins/Minerals 10 ml/Selenium 60 mcg/ Amino Acids 1,049.2526 mls @ 35 mls/hr IV Q24H [facility] Stop: 07/02/18 14:59 Last Admin: 07/01/18 15:33 Dose: 35 mls/hr Fat Emulsion Intravenous 250 (ml/ Premix) 250 mls @ 25 mls/hr IV MoWeFr@1600 [facility] Last Infusion: 07/02/18 02:00 Dose: Infused Sodium Chloride (Sodium Chloride 0.45%) 1,000 mls @ 30 mls/hr IV .Q24H [facility] Last Admin: 07/01/18 21:15 Dose: 30 mls/hr Calcium Gluconate 5 meq/Magnesium Sulfate 8.12 meq/Sodium Chloride 20 meq/ Potassium Chloride 40 meq/Multivitamins/Minerals 10 ml/Selenium 60 mcg/ Amino Acids 1,049.2526 mls @ 50 mls/hr IV Q21H [facility] Insulin Human Lispro (Humalog) 0 unit SQ Q6 [facility]; Protocol Last Admin: 07/02/18 05:43 Dose: Not Given Multivitamins (Thera-Plus) 5 ml PT DAILY [facility] Last Admin: 07/02/18 10:17 Dose: 5 ml Ondansetron HCl (Zofran) 4 mg IV Q6HP PRN PRN Reason: Nausea And Vomiting Last Admin: 07/01/18 07:24 Dose: 4 mg Pantoprazole Sodium (Protonix) 40 mg IV BIDAC [facility] Last Admin: 07/02/18 07:31 Dose: 40 mg Sodium Chloride (Saline Flush) 10 ml IV UD PRN PRN Reason: FLUSH Sodium Chloride (Saline Flush) 10 ml IV Q12 [facility] Last Admin: 07/02/18 10:17 Dose: 10 ml Medical - PN: A/P - Time Spent With Patient Total time spent is greater than 50% in coordination of care (as documented) at patient's floor/unit and/or counseling patient: - Narrative A/P Narrative: A: Acute Pulmonary Embolus- Right sided, presently on therapeutic lovenox, will need to switch to newer NOAC or coumadin per insurance at discharge, total 6 months of anticoagulation planned. Patient is on room air. Acute appendicitis with perforation and generalized peritonitis: s/p lap appy ( 06/25): management per surgery. WBC count stable, microbiology reviewed, pt is on zosyn. X ray with SBO follow through ordered. Ileus- Post op, management per surgery. NG tube still in place. SBO/ high grade ? partial - NG in place Atelectasis:- Pulmonary toilet/ acapella to start, pt may not be able to do incentive spirometer well Hypoxia due to above- off oxygen. Hypokalemia/Hypophosphatemia- Replace, Nutrition- TPN to be started DVT on enoxaaparin FUll code. Medical - PN: Qual - VTE Deep Vein Thrombosis/Pulmonary Embolism Present on Admission: No
[2018-07-02] MEDS: ONDANSETRON 4 MG/2 ML VIAL IV PRN (13:37)
[2018-07-02] MEDS ORDERED: CALCIUM GLUCONATE 5 MEQ, MAGNESIUM SULFATE 8.12 MEQ, SODIUM CHLORIDE 20 MEQ, POTASSIUM ... IV SCH (15:00)
[2018-07-02] MEDS: BISACODYL 10 MG SUPP.RECT PR SCH ×2 (21:02→21:24)
[2018-07-03] MEDS: INSULIN LISPRO 1 UNIT/0.01 ML UNIT SQ SCH ×4 (05:55→17:30)
[2018-07-03] MEDS: PIPERACILLIN SODIUM/TAZOBACTAM 3.375 GM in DEXTROSE 5% IN WATER 50 ML IV SCH ×3 (05:55→17:30)
[2018-07-03 06:21] LABS: ALT/SGPT 34 U/l (0-40); Albumin 2.9 gm/dL (3.2-5.2); Albumin/Globulin Ratio 0.8 (1.0-2.3); Alkaline Phosphatase 56 U/L (39-117); Bilirubin,Direct < 0.2 mg/dL (0.0-0.3); Blood Urea Nitrogen 15 mg/dl (8-23); Gamma Glutamyl Transpeptidase 41 U/L (8-61); Uric Acid 2.6 mg/dL (2.5-8.0)
[2018-07-03] MEDS: 0.9 % SODIUM CHLORIDE 10 ML SYRINGE IV PRN ×3 (08:14→16:28)
[2018-07-03] MEDS: PANTOPRAZOLE 40 MG VIAL IV SCH ×2 (08:14→16:28)
[2018-07-03] MEDS: 0.45 % SODIUM CHLORIDE 1,000 ML IV SCH (08:15)
--- NOTE | 2018-07-03 08:41 | General Surgery Progress Note ---
Subjective Patient reports: flatus (Patient seen at bedside, started having Bm's and flatus. adequate urine output. ambulating. No events reported overnight) Narrative: Note initiated : 07/03/18 at 8:38 am Service Date, if different from initiated Date: [] Patient: Wesley Villeda 67 y/o M admitted on 06/25/18 for Laparoscopic Appendectomy Possible Open. Chief Complaint: [] Pertinent ROS: Denies F/C/NS, No N/V, no SOB or CP No current abdominal pain. Objective Temp Pulse Resp BP Pulse Ox 98.8 F 78 18 126/75 96 07/03/18 04:00 07/02/18 19:26 07/03/18 04:00 07/03/18 04:00 07/03/18 04:00 - Additional Data Intake & Output - Last 24 hours: Intake & Output 07/01/18 07/02/18 07/03/18 07/04/18 05:59 05:59 05:59 05:59 Intake Total 2660 / 2660 2600 / 2600 1549.2526 / 1549.2526 1050 / 1050 Output Total 1575 / 1575 4505 / 4505 6095 / 6095 50 / 50 Balance 1085 / 1085 -1905 / -1905 -4545.7474 / -4545.7474 1000 / 1000 Weight 231 lb 14.4 oz 235 lb 12.8 oz 232 lb 9.6 oz - General physical appearance well nourished, no distress - Neck trachea midline - Respiratory clear to auscultation - Abdomen soft (less distention than yesterday. No rebound or guarding. SUSIE drain serous output with leakage around drain.) - Integumentary no rash - Psychiatric oriented to time, oriented to person, oriented to place - Additional Exam No LE tenderness B/L - Labs 07/02/18 04:00 07/03/18 04:00 Diabetes panel 07/02/18 07/03/18 Range/Units 07:31 04:00 Sodium 137 142 (133-145) mmol/L Potassium 3.8 3.5 (3.3-5.1) mmol/L Chloride 102 108 (96-108) mmol/L Carbon Dioxide 27 25 (22-30) mmol/L BUN 10 15 (8-23) mg/dl Creatinine 0.9 0.9 (0.7-1.2) mg/dl Glucose 183 H 174 H (70-105) mg/dL Calcium 8.1 L 8.5 L (8.6-10.4) mg/dl AST 18 19 (0-37) U/l ALT 32 34 (0-40) U/l Alkaline Phosphatase 49 56 (39-117) U/L Total Protein 6.2 6.7 (5.9-8.4) gm/dL Albumin 2.7 L 2.9 L (3.2-5.2) gm/dL Triglycerides 162 H 183 H (<150) mg/dl Calcium panel 07/02/18 07/03/18 Range/Units 07:31 04:00 Calcium 8.1 L 8.5 L (8.6-10.4) mg/dl Phosphorus 2.8 2.0 L (2.7-4.5) mg/dL Albumin 2.7 L 2.9 L (3.2-5.2) gm/dL Pituitary panel 07/02/18 07/03/18 Range/Units 07:31 04:00 Sodium 137 142 (133-145) mmol/L Potassium 3.8 3.5 (3.3-5.1) mmol/L Chloride 102 108 (96-108) mmol/L Carbon Dioxide 27 25 (22-30) mmol/L BUN 10 15 (8-23) mg/dl Creatinine 0.9 0.9 (0.7-1.2) mg/dl Glucose 183 H 174 H (70-105) mg/dL Calcium 8.1 L 8.5 L (8.6-10.4) mg/dl Adrenal panel 07/02/18 07/03/18 Range/Units 07:31 04:00 Sodium 137 142 (133-145) mmol/L Potassium 3.8 3.5 (3.3-5.1) mmol/L Chloride 102 108 (96-108) mmol/L Carbon Dioxide 27 25 (22-30) mmol/L BUN 10 15 (8-23) mg/dl Creatinine 0.9 0.9 (0.7-1.2) mg/dl Glucose 183 H 174 H (70-105) mg/dL Calcium 8.1 L 8.5 L (8.6-10.4) mg/dl Total Bilirubin 0.5 0.4 (0.0-1.0) mg/dL AST 18 19 (0-37) U/l ALT 32 34 (0-40) U/l Alkaline Phosphatase 49 56 (39-117) U/L Total Protein 6.2 6.7 (5.9-8.4) gm/dL Albumin 2.7 L 2.9 L (3.2-5.2) gm/dL Assessment and Plan (1) Acute appendicitis with perforation and generalized peritonitis Status: Acute Current Visit: Yes (2) Acute appendicitis Status: Acute Current Visit: Yes (3) Pulmonary embolism Status: Acute Current Visit: Yes (4) Hyperglycemia Status: Acute Current Visit: Yes - Narrative A/P Narrative: 67 yo male POD#8 for laparoscopic appendectomy for perforated appendicitis with generalized peritonitis, found to have segmental pulmonary embolism and resolving ileus. Neuro: Continue IV Tylenol and Toradol standing, Dilaudid prn severe pain. Cardiovascular: Continuous cardiac monitoring, Hydralazine prn Pulm: Continue incentive spirometer. O2 2 L NC prn, Duoneb q6. Therapeutic Lovenox. GI: NG tube clamped. Continue famotidine. Continue Reglan & zofran prn. Continue susie to bulb suction. ID: Continue Zosyn. : Hogue removed, patient able to void ENDO: Continue FSBS and RISS Hemonc: Lovenox 100mg sc q12 will switch to oral meds when able to tolerate PO MSK: PT on case appreciated FEN: Titrate off TPN, Multivitamins, am labs, OOB to chair, replace electrolytes prn GI Prophylaxis: Protonix DVT Prophylaxis: SCD's On therapeutic lovenox Medical team on case appreciated. OT on case appreciated. Likely will need subacute rehab, will discuss with Social work Condition: guarded Disposition: Continue telemetry - Time Spent With Patient Total time spent is greater than 50% in coordination of care (as documented) at patient's floor/unit and/or counseling patient:
--- NOTE | 2018-07-03 09:14 | XRay Report ---
CLINICAL INFORMATION: High-grade partial mid jejunal obstruction - evaluate COMPARISON: Abdomen and pelvic CT one day prior is 07/01/2018 TECHNIQUE: Following psych specialist imaging, approximately 1 L water-soluble contrast infused through indwelling NG tube and serial imaging was obtained over seven hours and 40 minutes. FINDINGS: The stomach, duodenum and jejunum are moderately dilated and the transit time is markedly delayed: only the proximal small bowel to the mid jejunum is opacified at three hours and 30 minutes. Seven hour delayed film shows contrast traversing a stricture in the distal jejunum within the right mid abdomen and opacifying a markedly decompressed distal small bowel and large bowel. 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
[2018-07-03] MEDS: 0.9 % SODIUM CHLORIDE 10 ML SYRINGE IV SCH ×2 (09:15→22:31)
[2018-07-03] MEDS: LACTATED RINGERS 1,000 ML IV SCH (09:51)
[2018-07-03] MEDS: ACETAMINOPHEN 1,000 MG/100 ML BOTTLE IV SCH ×2 (09:51→23:44)
[2018-07-03] MEDS: POTASSIUM PHOSPHATE 20 MEQ in DEXTROSE 5% IN WATER 250 ML IV SCH ×2 (09:51→22:19)
[2018-07-03] MEDS: ENOXAPARIN 100 MG/ML SYRINGE SQ SCH ×2 (09:52→22:32)
[2018-07-03] MEDS: MULTIVITAMINS,THERAPEUTIC 1 ML ORAL.SOL PT SCH (09:54)
[2018-07-03] MEDS: BISACODYL 10 MG SUPP.RECT PR SCH ×2 (11:36→22:34)
[2018-07-03] MEDS: DOCUSATE SODIUM 100 MG CAPSULE PO SCH ×2 (11:36→22:34)
[2018-07-03] MEDS ORDERED: CALCIUM GLUCONATE 5 MEQ, MAGNESIUM SULFATE 8.12 MEQ, SODIUM CHLORIDE 20 MEQ, POTASSIUM ... IV SCH (12:00)
--- NOTE | 2018-07-03 12:09 | Internal Med Progress Note ---
Medical - PN: Subj Patient information: Note initiated : 07/03/18 at 12:07 pm Service Date, if different from initiated Date: [] Patient: Wesley Villeda a 67 y/o M admitted on 06/25/18 for Laparoscopic Appendectomy Possible Open. Chief Complaint: [] Interval history: Mr. Villeda is a 67 year old M Who presented with abdominal pain with associated nausea vomiting on the and found to have acute appendicitis. He had surgery the same day and underwent laparoscopic appendectomy and found to have a perforated appendicitis Intra-Op with generalized peritonitis. Postoperatively his bowels are slow to function and having urinary retention thus a Hogue was placed. He has been belching but has not been having any bowel movements or flatus. The he reported some mild shortness of breath but otherwise no new complaints. Later in the day nurse noticed him to be more labored on room air even though the patient did not particularly feel short of breath. His vital signs are taken as oxygen saturation was 88% on room air. Stat CTA of the chest was done which showed scattered pulmonary emboli in the right upper lobe. His heart rate remains in the 90s which is what he's typically been since he is been here. Blood pressure remained stable. The CTA report no cardiac strain. Patient will be moved to the unit for close monitoring and placed on therapeutic Lovenox. In speaking with the patient he denies any shortness of breath at this time and is without chest pain. He has some mild abdominal pain over the incision site but otherwise no other complaints. No coughing. 06/28 Nausea vomitus morning. NG placed with good output. No chest pain or shortness of breath. high O2 sats on 3L's. 06/29 Patient seen examined, no acute overnight issues, NG still in place, had BM today NO acute complaints reported. 06/30 Pt seen examined, no acute overnight issues, NG tube in place complains of abdominal pain. No chest pain or shortness of breath was a bit drowsy, had received pain medication before my visit. 07/01 pt seen examined, no acute oernight issues, WBC better CT shows SBO partial, PICC to be placed, TPN to be started atelectasis noted, start on acapella 07/02 Pt seen examined, still has abdominal pain no bowel movements, X ray shows ileus./ sbo surgery following. labs stable 07/03 Pt seen examined, abdominal pain present, but no new compalints has had BM overnight and this AM, SBO reviewed, bowel tones present today hemodynamically stable, labs stable. Pertinent ROS: Denies headache, dizziness Denies chest pain, palpitations Denies cough or shortness of breath present abdominal pain, no nausea or vomiting. - Constitutional Vitals: Vital Signs Temp Pulse Resp BP Pulse Ox 98.6 F 62 24 H 136/79 99 07/03/18 11:59 07/03/18 11:59 07/03/18 11:59 07/03/18 11:59 07/03/18 11:59 Period Temp Pulse Resp BP Sys/Boudreaux Pulse Ox Last 24 Hr 98.1 F-98.9 F 62-78 16-24 124-136/73-79 93-99 Intake and Output 07/02/18 07/03/18 07/03/18 21:59 05:59 13:59 Intake Total 1199.2526 / 1199.2526 150 / 150 1150 / 1150 Output Total 730 / 730 2115 / 2115 450 / 450 Balance 469.2526 / 469.2526 -1964 / 700 / 700 Weight 232 lb 9.6 oz 232 lb 9.6 oz Patient Weight 07/04/18 05:59 Weight 232 lb 9.6 oz Intake & Output: Intake & Output 07/02/18 07/03/18 07/03/18 21:59 05:59 13:59 Intake Total 1199.2526 / 1199.2526 150 / 150 1150 / 1150 Output Total 730 / 730 2115 / 2115 450 / 450 Balance 469.2526 / 469.2526 / 700 / 700 Weight 232 lb 9.6 oz 232 lb 9.6 oz Intake: IV 1199.2526 / 1199.2526 50 / 50 1150 / 1150 Sodium Chloride 0.45% 1,000 ml 1000 / 1000 @ 30 mls/hr IV .Q24H [facility] Rx#: [id number] Zosyn 3.375 gm In Dextrose 5% 50 / 50 50 / 50 50 / 50 in Water 50 ml @ 100 mls/hr IV Q6H [facility] Rx#:[id number] Oral 100 / 100 Output: Drainage 80 / 80 40 / 40 50 / 50 Right Lower Abdomen 80 / 80 40 / 40 50 / 50 Void Amount 300 / 300 Urine/Stool Mix 650 / 650 400 / 400 Stool 1425 / 1425 Emesis 350 / 350 Other: Stool Size Small Moderate Stool Color Brown Brown Brown Green Stool Consistency Dry and Hard Liquid Dry and Hard Formed Loose # Voids 1 # Bowel Movements 1 # of times incontinent of 1 Bowels Exam: Constitutional; Afebrile, cooperative, alert, not in distress. Eyes- No icterus, , No periorbital swelling Ears- Ext ear normal, hearing normal to conversation. Neck- Midline trachea, supple Respiratory system: Air Entry equal on both sides, No crackles or wheezing, no rhonchi. CVS- Rate rhythm regular, S1,S2 heard, no gallop, no rub. Abdomen- Distended abdomen, tenerness left lq, present bowel tones. 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 Medical - PN: Obj Da - Labs CBC & Chem 7: 07/02/18 04:00 07/03/18 04:00 Labs: Abnormal Lab Results 07/03/18 07/02/18 07/02/18 04:00 07:31 04:00 RBC 4.06 L Hgb 12.3 L Hct 36.7 L Lymph % (Auto) 12.3 L Eos % (Auto) 7.1 H Lymph # (Auto) 1.1 L Glucose 174 H 183 H Calcium 8.5 L 8.1 L Phosphorus 2.0 L Albumin 2.9 L 2.7 L Globulin 3.8 H Albumin/Globulin Ratio 0.8 L 0.8 L Triglycerides 183 H 162 H 07/01/18 07/01/18 03:45 03:45 RBC 4.06 L Hgb 12.5 L Hct 36.6 L Lymph % (Auto) 12.4 L Eos % (Auto) Lymph # (Auto) 1.4 L Glucose 159 H Calcium 8.2 L Phosphorus Albumin Globulin Albumin/Globulin Ratio Triglycerides Meds: Medications Bisacodyl (Dulcolax) 10 mg TN BID [facility] Stop: 07/04/18 20:59 Last Admin: 07/03/18 11:36 Dose: Not Given Dextrose (Dextrose 50%) 0 ml IV UD PRN PRN Reason: Hypoglycemia Diagnostic Test (Pha) (Accu-Chek) 1 each FS Q6 [facility] Last Admin: 07/03/18 05:54 Dose: 1 each Docusate Sodium (Colace) 100 mg PO BID [facility] Last Admin: 07/03/18 11:36 Dose: Not Given Enoxaparin Sodium (Lovenox) 100 mg SQ BID [facility] Last Admin: 07/03/18 09:52 Dose: 100 mg Glucose (Insta-Glucose) 15 gm PO PRN PRN PRN Reason: Hypoglycemia Heparin Sodium (Porcine) (Heparin Flush) 2 ml IV Q12 [facility] Last Admin: 07/03/18 09:53 Dose: 2 ml Hydralazine HCl (Apresoline) 10 mg IV Q4-6HP PRN PRN Reason: Hypertension Hydromorphone HCl (Dilaudid) 0.5 mg IV Q2HP PRN PRN Reason: PAIN LEVEL > 6 Last Admin: 07/02/18 19:11 Dose: 0.5 mg Acetaminophen (Ofirmev) 1,000 mg in 100 mls @ 200 mls/hr IV Q12 [facility] Last Infusion: 07/03/18 10:21 Dose: Infused Piperacillin Sod/Tazobactam (Sod 3.375 gm/ Dextrose) 50 mls @ 100 mls/hr IV Q6H [facility] Last Infusion: 07/03/18 06:25 Dose: Infused Fat Emulsion Intravenous 250 (ml/ Premix) 250 mls @ 25 mls/hr IV MoWeFr@1600 [facility] Last Infusion: 07/02/18 02:00 Dose: Infused Potassium Phosphate 20 meq/ (Dextrose) 254.5455 mls @ 127.273 mls/hr IV BID [facility] Stop: 07/03/18 22:59 Last Admin: 07/03/18 09:51 Dose: 127.273 mls/hr Lactated Ringer's (Lactated Ringers) 1,000 mls @ 75 mls/hr IV .[id number] [facility] Stop: 07/06/18 08:44 Last Admin: 07/03/18 09:51 Dose: 75 mls/hr Calcium Gluconate 5 meq/Magnesium Sulfate 8.12 meq/Sodium Chloride 20 meq/ Potassium Chloride 40 meq/Multivitamins/Minerals 10 ml/Selenium 60 mcg/ Potassium Phosphate 40 meq/ Amino Acids 1,058.3435 mls @ 35 mls/hr IV Q24H [facility] Insulin Human Lispro (Humalog) 0 unit SQ Q6 [facility]; Protocol Last Admin: 07/03/18 05:55 Dose: 4 unit Multivitamins (Thera-Plus) 5 ml PT DAILY [facility] Last Admin: 07/03/18 09:54 Dose: 5 ml Ondansetron HCl (Zofran) 4 mg IV Q6HP PRN PRN Reason: Nausea And Vomiting Last Admin: 07/02/18 13:37 Dose: 4 mg Pantoprazole Sodium (Protonix) 40 mg IV BIDAC [facility] Last Admin: 07/03/18 08:14 Dose: 40 mg Sodium Biphosphate/Sodium Phosphate (Fleets Adult) 1 dose TN Q3-4DAYS PRN PRN Reason: Constipation Sodium Chloride (Saline Flush) 10 ml IV UD PRN PRN Reason: FLUSH Last Admin: 07/03/18 08:14 Dose: 10 ml Sodium Chloride (Saline Flush) 10 ml IV Q12 [facility] Last Admin: 07/03/18 09:15 Dose: 10 ml Medical - PN: A/P - Time Spent With Patient Total time spent is greater than 50% in coordination of care (as documented) at patient's floor/unit and/or counseling patient: - Narrative A/P Narrative: A: Acute Pulmonary Embolus- Right sided, presently on therapeutic lovenox, will need to switch to newer NOAC or coumadin per insurance at discharge, total 6 months of anticoagulation planned. Patient is on room air. Acute appendicitis with perforation and generalized peritonitis: s/p lap appy ( 06/25): management per surgery. WBC count stable, microbiology reviewed, pt is on zosyn. Ileus- Post op, management per surgery. NG tube still in place. SBO/ high grade ? partial - NG in place smal bowel follow through reviewed, Atelectasis:- Pulmonary toilet/ acapella to start, pt may not be able to do incentive spirometer well Hypoxia due to above- off oxygen. Hypokalemia/Hypophosphatemia- Replace, Nutrition- TPN to be started DVT on enoxaaparin FUll code. Medical - PN: Qual - VTE Deep Vein Thrombosis/Pulmonary Embolism Present on Admission: No
[2018-07-03] MEDS: FAT EMULSION 20% 250 ML in PREMIX 1 BAG IV SCH (16:28)
[2018-07-03] MEDS: HYDROmorphone 2 MG/ML VIAL IV PRN (23:43)
[2018-07-04] MEDS: LACTATED RINGERS 1,000 ML IV SCH ×3 (00:27→15:30)
[2018-07-04] MEDS: PIPERACILLIN SODIUM/TAZOBACTAM 3.375 GM in DEXTROSE 5% IN WATER 50 ML IV SCH ×5 (01:49→23:28)
[2018-07-04] MEDS: INSULIN LISPRO 1 UNIT/0.01 ML UNIT SQ SCH ×3 (02:25→12:35)
[2018-07-04 05:25] LABS: Prealbumin 17.9 mg/dl (20-40)
[2018-07-04 05:27] LABS: ALT/SGPT 30 U/l (0-40); Albumin 2.6 gm/dL (3.2-5.2); Albumin/Globulin Ratio 0.8 (1.0-2.3); Alkaline Phosphatase 46 U/L (39-117); Bilirubin,Direct < 0.2 mg/dL (0.0-0.3); Blood Urea Nitrogen 14 mg/dl (8-23); Gamma Glutamyl Transpeptidase 45 U/L (8-61); Uric Acid 2.4 mg/dL (2.5-8.0)
[2018-07-04] MEDS: 0.9 % SODIUM CHLORIDE 10 ML SYRINGE IV PRN (06:51)
[2018-07-04] MEDS: PANTOPRAZOLE 40 MG VIAL IV SCH ×2 (07:30→17:18)
[2018-07-04] MEDS: 0.9 % SODIUM CHLORIDE 10 ML SYRINGE IV SCH ×3 (07:31→20:35)
[2018-07-04] MEDS: MULTIVITAMINS,THERAPEUTIC 1 ML ORAL.SOL PT SCH (10:05)
[2018-07-04] MEDS: ENOXAPARIN 100 MG/ML SYRINGE SQ SCH ×2 (10:06→20:35)
[2018-07-04] MEDS: ACETAMINOPHEN 1,000 MG/100 ML BOTTLE IV SCH (10:07)
[2018-07-04 10:08] LABS: Blood Urea Nitrogen 13 mg/dl (8-23)
--- NOTE | 2018-07-04 10:21 | Internal Med Progress Note ---
Medical - PN: Subj Patient information: Note initiated : 07/04/18 at 10:18 am Service Date, if different from initiated Date: [] Patient: Wesley Villeda a 67 y/o M admitted on 06/25/18 for Laparoscopic Appendectomy Possible Open. Chief Complaint: [] Interval history: Mr. Villeda is a 67 year old M Who presented with abdominal pain with associated nausea vomiting on the and found to have acute appendicitis. He had surgery the same day and underwent laparoscopic appendectomy and found to have a perforated appendicitis Intra-Op with generalized peritonitis. Postoperatively his bowels are slow to function and having urinary retention thus a Hogue was placed. He has been belching but has not been having any bowel movements or flatus. The he reported some mild shortness of breath but otherwise no new complaints. Later in the day nurse noticed him to be more labored on room air even though the patient did not particularly feel short of breath. His vital signs are taken as oxygen saturation was 88% on room air. Stat CTA of the chest was done which showed scattered pulmonary emboli in the right upper lobe. His heart rate remains in the 90s which is what he's typically been since he is been here. Blood pressure remained stable. The CTA report no cardiac strain. Patient will be moved to the unit for close monitoring and placed on therapeutic Lovenox. In speaking with the patient he denies any shortness of breath at this time and is without chest pain. He has some mild abdominal pain over the incision site but otherwise no other complaints. No coughing. 06/28 Nausea vomitus morning. NG placed with good output. No chest pain or shortness of breath. high O2 sats on 3L's. 06/29 Patient seen examined, no acute overnight issues, NG still in place, had BM today NO acute complaints reported. 06/30 Pt seen examined, no acute overnight issues, NG tube in place complains of abdominal pain. No chest pain or shortness of breath was a bit drowsy, had received pain medication before my visit. 07/01 pt seen examined, no acute oernight issues, WBC better CT shows SBO partial, PICC to be placed, TPN to be started atelectasis noted, start on acapella 07/02 Pt seen examined, still has abdominal pain no bowel movements, X ray shows ileus./ sbo surgery following. labs stable 07/03 Pt seen examined, abdominal pain present, but no new compalints has had BM overnight and this AM, SBO reviewed, bowel tones present today hemodynamically stable, labs stable. 07/04 Patient seen examined, no acute issues NG in place, but tolerating po diet now Bowels moving pain still there in the abdomen, hemodynamically stable, labs stable TPN ongoing. Pertinent ROS: Denies headache, dizziness Denies chest pain, palpitations Denies cough or shortness of breath present abdominal pain, no nausea/vomiting. - Constitutional Vitals: Vital Signs Temp Pulse Resp BP Pulse Ox 99.0 F 67 16 151/77 95 07/04/18 08:00 07/04/18 04:00 07/04/18 08:00 07/04/18 08:00 07/04/18 08:00 Period Temp Pulse Resp BP Sys/Boudreaux Pulse Ox Last 24 Hr 98.6 F-99.8 F 62-67 16-24 113-151/72-79 95-99 Intake and Output 07/03/18 07/04/18 07/04/18 21:59 05:59 13:59 Intake Total 590 / 590 1654.5455 / 1654.5455 50 / 50 Output Total 1000 / 1000 145 / 145 Balance -410 / -410 1509.5455 / 1509.5455 50 / 50 Weight 229 lb 11.2 oz Intake & Output: Intake & Output 07/03/18 07/04/18 07/04/18 21:59 05:59 13:59 Intake Total 590 / 590 1654.5455 / 1654.5455 50 / 50 Output Total 1000 / 1000 145 / 145 Balance -410 / -410 1509.5455 / 1509.5455 50 / 50 Weight 229 lb 11.2 oz Intake: IV 50 / 50 1654.5455 / 1654.5455 50 / 50 Intralipid 20% 250 ml In Premix 250 / 250 1 Bag @ 25 mls/hr IV MoWeFr@ 1600 [facility] Rx#:[id number] Lactated Ringers 1,000 ml @ 75 1000 / 1000 mls/hr IV .[id number] [facility] Rx#: [id number] Zosyn 3.375 gm In Dextrose 5% 50 / 50 50 / 50 50 / 50 in Water 50 ml @ 100 mls/hr IV Q6H [facility] Rx#:[id number] Oral 540 / 540 Output: Drainage 20 / 20 Right Lower Abdomen 20 / 20 Void Amount 125 / 125 Urine/Stool Mix 1000 / 1000 Other: Stool Size Large Moderate Stool Color Brown Brown Green Stool Consistency Watery Liquid Loose Watery # Voids 1 # Bowel Movements 1 Exam: Constitutional; Afebrile, cooperative, alert, not in distress. Respiratory system: Air Entry equal on both sides, No crackles or wheezing, no rhonchi. CVS- Rate rhythm regular, S1,S2 heard, no gallop, no rub. Abdomen- Soft distended abdomen, no organomegaly, right lower quadrant tenderness, no guarding or rigidity, bowel tones present PACKING INSPECTOR- AOOx3, moving all extremities, no gross focal deficit noted. Medical - PN: Obj Da - Labs CBC & Chem 7: 07/02/18 04:00 07/04/18 09:03 Labs: Abnormal Lab Results 07/04/18 07/04/18 07/04/18 09:03 03:45 03:45 RBC Hgb Hct Lymph % (Auto) Eos % (Auto) Lymph # (Auto) Carbon Dioxide 21 L Glucose 145 H 155 H Uric Acid 2.4 L Calcium 8.1 L 8.0 L Phosphorus 2.6 L Albumin 2.6 L Globulin Albumin/Globulin Ratio 0.8 L Prealbumin 17.9 L Triglycerides 154 H 07/03/18 07/02/18 07/02/18 04:00 07:31 04:00 RBC 4.06 L Hgb 12.3 L Hct 36.7 L Lymph % (Auto) 12.3 L Eos % (Auto) 7.1 H Lymph # (Auto) 1.1 L Carbon Dioxide Glucose 174 H 183 H Uric Acid Calcium 8.5 L 8.1 L Phosphorus 2.0 L Albumin 2.9 L 2.7 L Globulin 3.8 H Albumin/Globulin Ratio 0.8 L 0.8 L Prealbumin Triglycerides 183 H 162 H Meds: Medications Bisacodyl (Dulcolax) 10 mg NE BID [facility] Stop: 07/04/18 20:59 Last Admin: 07/03/18 22:34 Dose: Not Given Dextrose (Dextrose 50%) 0 ml IV UD PRN PRN Reason: Hypoglycemia Diagnostic Test (Pha) (Accu-Chek) 1 each FS Q6 [facility] Last Admin: 07/04/18 06:17 Dose: 1 each Docusate Sodium (Colace) 100 mg PO BID [facility] Last Admin: 07/03/18 22:34 Dose: Not Given Enoxaparin Sodium (Lovenox) 100 mg SQ BID [facility] Last Admin: 07/04/18 10:06 Dose: 100 mg Glucose (Insta-Glucose) 15 gm PO PRN PRN PRN Reason: Hypoglycemia Heparin Sodium (Porcine) (Heparin Flush) 2 ml IV Q12 [facility] Last Admin: 07/04/18 10:06 Dose: 2 ml Hydralazine HCl (Apresoline) 10 mg IV Q4-6HP PRN PRN Reason: Hypertension Hydromorphone HCl (Dilaudid) 0.5 mg IV Q2HP PRN PRN Reason: PAIN LEVEL > 6 Last Admin: 07/03/18 23:43 Dose: 0.5 mg Acetaminophen (Ofirmev) 1,000 mg in 100 mls @ 200 mls/hr IV Q12 [facility] Last Admin: 07/04/18 10:07 Dose: 200 mls/hr Piperacillin Sod/Tazobactam (Sod 3.375 gm/ Dextrose) 50 mls @ 100 mls/hr IV Q6H [facility] Last Infusion: 07/04/18 07:31 Dose: Infused Fat Emulsion Intravenous 250 (ml/ Premix) 250 mls @ 25 mls/hr IV MoWeFr@1600 [facility] Last Infusion: 07/04/18 02:50 Dose: Infused Lactated Ringer's (Lactated Ringers) 1,000 mls @ 75 mls/hr IV .[id number] [facility] Stop: 07/06/18 08:44 Last Admin: 07/04/18 00:27 Dose: 75 mls/hr Calcium Gluconate 5 meq/Magnesium Sulfate 8.12 meq/Sodium Chloride 20 meq/ Potassium Chloride 40 meq/Multivitamins/Minerals 10 ml/Selenium 60 mcg/ Potassium Phosphate 40 meq/ Amino Acids 1,058.3435 mls @ 35 mls/hr IV Q24H [facility] Last Admin: 07/03/18 12:45 Dose: 35 mls/hr Insulin Human Lispro (Humalog) 0 unit SQ Q6 [facility]; Protocol Last Admin: 07/04/18 06:18 Dose: Not Given Multivitamins (Thera-Plus) 5 ml PT DAILY [facility] Last Admin: 07/04/18 10:05 Dose: 5 ml Ondansetron HCl (Zofran) 4 mg IV Q6HP PRN PRN Reason: Nausea And Vomiting Last Admin: 07/02/18 13:37 Dose: 4 mg Pantoprazole Sodium (Protonix) 40 mg IV BIDAC [facility] Last Admin: 07/04/18 07:30 Dose: 40 mg Sodium Biphosphate/Sodium Phosphate (Fleets Adult) 1 dose NE Q3-4DAYS PRN PRN Reason: Constipation Sodium Chloride (Saline Flush) 10 ml IV UD PRN PRN Reason: FLUSH Last Admin: 07/04/18 06:51 Dose: 10 ml Sodium Chloride (Saline Flush) 10 ml IV Q12 [facility] Last Admin: 07/04/18 07:31 Dose: 10 ml Medical - PN: A/P - Time Spent With Patient Total time spent is greater than 50% in coordination of care (as documented) at patient's floor/unit and/or counseling patient: - Narrative A/P Narrative: A: Acute Pulmonary Embolus- Right sided, presently on therapeutic lovenox, will need to switch to newer NOAC or coumadin per insurance at discharge, total 6 months of anticoagulation planned. Patient is on room air. Acute appendicitis with perforation and generalized peritonitis: s/p lap appy ( 06/25): management per surgery. WBC count stable, microbiology reviewed, pt is on zosyn. Ileus- Post op, management per surgery. NG tube still in place. But pt is now moving bowels and tolerating liquid diet po, SBO/ high grade ? partial - NG in place smal bowel follow through reviewed, pt moving bowels Atelectasis:- Pulmonary toilet/ acapella to start, pt may not be able to do incentive spirometer well Hypoxia due to above- off oxygen. Hypokalemia/Hypophosphatemia- Replace, Nutrition- on tpn per surgery DVT on enoxaaparin Full code. Medical - PN: Qual - VTE Deep Vein Thrombosis/Pulmonary Embolism Present on Admission: No
--- NOTE | 2018-07-04 11:10 | General Surgery Progress Note ---
Subjective Patient reports: feels better (Patient seen bedside, having flatus, having liquid bm, ambulating, susie with serous fluid output. No overnight events reported ) Narrative: Note initiated : 07/04/18 at 11:08 am Service Date, if different from initiated Date: [] Patient: Wesley Villeda 67 y/o M admitted on 06/25/18 for Laparoscopic Appendectomy Possible Open. Chief Complaint: [] Pertinent ROS: Denies N/V, F/C, NS,no SOB or CP, No current abdominal pain. Objective Temp Pulse Resp BP Pulse Ox 99.0 F 67 16 151/77 95 07/04/18 08:00 07/04/18 04:00 07/04/18 08:00 07/04/18 08:00 07/04/18 08:00 - Additional Data Intake & Output - Last 24 hours: Intake & Output 07/02/18 07/03/18 07/04/18 07/05/18 05:59 05:59 05:59 05:59 Intake Total 2600 / 2600 1549.2526 / 1549.2526 4868.3436 / 4868.3436 150 / 150 Output Total 4505 / 4505 6095 / 6095 1920 / 1920 600 / 600 Balance -1905 / -1905 -4545.7474 / -4545.7474 2948.3436 / 2948.3436 -450 / -450 Weight 235 lb 12.8 oz 232 lb 9.6 oz 229 lb 11.2 oz - General physical appearance well developed, no distress - Eyes normal ocular movement - ENT normal mucosa - Neck trachea midline - Respiratory clear to auscultation - Cardiovascular Cardiovascular exam: Present: normal rate and rhythm - Abdomen soft (NT, ND, no rebound or guarding, SUSIE drain site no erythema) - Musculoskeletal normal gait - Psychiatric oriented to time, oriented to person, oriented to place - Labs 07/02/18 04:00 07/04/18 09:03 Diabetes panel 07/04/18 07/04/18 Range/Units 03:45 09:03 Sodium 137 139 (133-145) mmol/L Potassium 3.6 3.7 (3.3-5.1) mmol/L Chloride 105 107 (96-108) mmol/L Carbon Dioxide 21 L 22 (22-30) mmol/L BUN 14 13 (8-23) mg/dl Creatinine 0.9 0.9 (0.7-1.2) mg/dl Glucose 155 H 145 H (70-105) mg/dL Calcium 8.0 L 8.1 L (8.6-10.4) mg/dl AST 24 (0-37) U/l ALT 30 (0-40) U/l Alkaline Phosphatase 46 (39-117) U/L Total Protein 6.0 (5.9-8.4) gm/dL Albumin 2.6 L (3.2-5.2) gm/dL Triglycerides 154 H (<150) mg/dl Calcium panel 07/04/18 07/04/18 Range/Units 03:45 09:03 Calcium 8.0 L 8.1 L (8.6-10.4) mg/dl Phosphorus 2.6 L (2.7-4.5) mg/dL Albumin 2.6 L (3.2-5.2) gm/dL Pituitary panel 07/04/18 07/04/18 Range/Units 03:45 09:03 Sodium 137 139 (133-145) mmol/L Potassium 3.6 3.7 (3.3-5.1) mmol/L Chloride 105 107 (96-108) mmol/L Carbon Dioxide 21 L 22 (22-30) mmol/L BUN 14 13 (8-23) mg/dl Creatinine 0.9 0.9 (0.7-1.2) mg/dl Glucose 155 H 145 H (70-105) mg/dL Calcium 8.0 L 8.1 L (8.6-10.4) mg/dl Adrenal panel 07/04/18 07/04/18 Range/Units 03:45 09:03 Sodium 137 139 (133-145) mmol/L Potassium 3.6 3.7 (3.3-5.1) mmol/L Chloride 105 107 (96-108) mmol/L Carbon Dioxide 21 L 22 (22-30) mmol/L BUN 14 13 (8-23) mg/dl Creatinine 0.9 0.9 (0.7-1.2) mg/dl Glucose 155 H 145 H (70-105) mg/dL Calcium 8.0 L 8.1 L (8.6-10.4) mg/dl Total Bilirubin 0.4 (0.0-1.0) mg/dL AST 24 (0-37) U/l ALT 30 (0-40) U/l Alkaline Phosphatase 46 (39-117) U/L Total Protein 6.0 (5.9-8.4) gm/dL Albumin 2.6 L (3.2-5.2) gm/dL Assessment and Plan (1) Acute appendicitis with perforation and generalized peritonitis Status: Acute Current Visit: Yes (2) Acute appendicitis Status: Acute Current Visit: Yes (3) Pulmonary embolism Status: Acute Current Visit: Yes (4) Hyperglycemia Status: Acute Current Visit: Yes - Narrative A/P Narrative: 67 yo male POD#9 for laparoscopic appendectomy for perforated appendicitis with generalized peritonitis, found to have segmental pulmonary embolism and resolving ileus. Patient having loose BM for 24 hours. NG tube removed. Will advance diet to full liquids TPN titrating off. Continue ambulation, OOB to chair Therapeutic lovenox Will continue ABX Will continue all other medications. Medical team on case appreciated. Stable for downgrade to medical floor - Time Spent With Patient Total time spent is greater than 50% in coordination of care (as documented) at patient's floor/unit and/or counseling patient:
[2018-07-04] MEDS: DOCUSATE SODIUM 100 MG CAPSULE PO SCH ×2 (12:33→20:34)
[2018-07-04] MEDS: BISACODYL 10 MG SUPP.RECT PR SCH ×2 (12:33→20:34)
[2018-07-04] MEDS ORDERED: DEXTROSE 50% 50 ML VIAL IV PRN (12:35)
[2018-07-04] MEDS ORDERED: 0.9 % SODIUM CHLORIDE 10 ML SYRINGE IV PRN (12:35)
[2018-07-04] MEDS ORDERED: FLEETS ADULT ENEMA PR PRN (12:35)
[2018-07-04] MEDS ORDERED: ONDANSETRON 4 MG/2 ML VIAL IV PRN (12:35)
[2018-07-04] MEDS ORDERED: hydrALAZINE 20 MG/ML VIAL IV PRN (12:35)
[2018-07-04] MEDS ORDERED: ACETAMINOPHEN 325 MG TABLET PO PRN (12:35)
[2018-07-04] MEDS ORDERED: HYDROmorphone 2 MG/ML VIAL IV PRN (12:35)
[2018-07-04] MEDS ORDERED: DEXTROSE 31 GM ORAL.SUSP PO PRN (12:35)
--- NOTE | 2018-07-04 13:36 | Internal Med Progress Note ---
Medical - PN: Subj Patient information: Note initiated : 07/04/18 at 1:33 pm Service Date, if different from initiated Date: [] Patient: Wesley Villeda a 67 y/o M admitted on 06/25/18 for Laparoscopic Appendectomy Possible Open. Chief Complaint: [] Interval history: marlene Villeda is a 67 year old M Who presented with abdominal pain with associated nausea vomiting on the and found to have acute appendicitis. He had surgery the same day and underwent laparoscopic appendectomy and found to have a perforated appendicitis Intra-Op with generalized peritonitis. Postoperatively his bowels are slow to function and having urinary retention thus a Hogue was placed. He has been belching but has not been having any bowel movements or flatus. The he reported some mild shortness of breath but otherwise no new complaints. Later in the day nurse noticed him to be more labored on room air even though the patient did not particularly feel short of breath. His vital signs are taken as oxygen saturation was 88% on room air. Stat CTA of the chest was done which showed scattered pulmonary emboli in the right upper lobe. His heart rate remains in the 90s which is what he's typically been since he is been here. Blood pressure remained stable. The CTA report no cardiac strain. Patient will be moved to the unit for close monitoring and placed on therapeutic Lovenox. In speaking with the patient he denies any shortness of breath at this time and is without chest pain. He has some mild abdominal pain over the incision site but otherwise no other complaints. No coughing. 06/28 Nausea vomitus morning. NG placed with good output. No chest pain or shortness of breath. high O2 sats on 3L's. 06/29 Patient seen examined, no acute overnight issues, NG still in place, had BM today NO acute complaints reported. 06/30 Pt seen examined, no acute overnight issues, NG tube in place complains of abdominal pain. No chest pain or shortness of breath was a bit drowsy, had received pain medication before my visit. 07/01 pt seen examined, no acute oernight issues, WBC better CT shows SBO partial, PICC to be placed, TPN to be started atelectasis noted, start on acapella 07/02 Pt seen examined, still has abdominal pain no bowel movements, X ray shows ileus./ sbo surgery following. labs stable 07/03 Pt seen examined, abdominal pain present, but no new compalints has had BM overnight and this AM, SBO reviewed, bowel tones present today hemodynamically stable, labs stable. 07/04 Patient seen examined, no acute issues NG in place, but tolerating po diet now Bowels moving pain still there in the abdomen, hemodynamically stable, labs stable TPN ongoing. 07/05 - Constitutional Vitals: Vital Signs Temp Pulse Resp BP Pulse Ox 98.7 F 67 18 129/77 97 07/04/18 12:00 07/04/18 04:00 07/04/18 12:00 07/04/18 12:00 07/04/18 12:00 Period Temp Pulse Resp BP Sys/Boudreaux Pulse Ox Last 24 Hr 98.7 F-99.8 F 67 16-22 113-151/72-77 95-98 Intake and Output 07/03/18 07/04/18 07/04/18 21:59 05:59 13:59 Intake Total 590 / 590 1654.5455 / 1654.5455 1464 / 1464 Output Total 1000 / 1000 145 / 145 600 / 600 Balance -410 / -410 1509.5455 / 1509.5455 864 / 864 Weight 104.19 kg Intake & Output: Intake & Output 07/03/18 07/04/18 07/04/18 21:59 05:59 13:59 Intake Total 590 / 590 1654.5455 / 1654.5455 1464 / 1464 Output Total 1000 / 1000 145 / 145 600 / 600 Balance -410 / -410 1509.5455 / 1509.5455 864 / 864 Weight 104.19 kg Intake: IV 50 / 50 1654.5455 / 1654.5455 984 / 984 Calcium Gluconate 5 Meq 834 / 834 Magnesium Sulfate 8.12 Meq Sodium Chloride 20 Meq Potassium Chloride 40 Meq Infuvite Adult 10 ml Selenium 60 Mcg Potassium Phosphate 40 Meq In Clinimix 5%-20% Solution 1,000 ml @ 35 mls/hr IV Q24H [facility] Rx#:[id number] Intralipid 20% 250 ml In Premix 250 / 250 1 Bag @ 25 mls/hr IV MoWeFr@ 1600 [facility] Rx#:[id number] Lactated Ringers 1,000 ml @ 75 1000 / 1000 mls/hr IV .[id number] [facility] Rx#: [id number] Zosyn 3.375 gm In Dextrose 5% 50 / 50 50 / 50 50 / 50 in Water 50 ml @ 100 mls/hr IV Q6H [facility] Rx#:[id number] Oral 540 / 540 480 / 480 Output: Gastric Drainage 200 / 200 NG/OG 200 / 200 Drainage 20 / 20 Right Lower Abdomen 20 / 20 Void Amount 125 / 125 100 / 100 Urine/Stool Mix 1000 / 1000 Stool 300 / 300 Other: Meal Nourishment/Supplement Percent of Meal Consumed 100% Urine Appearance Clear Urine Color Dark Yellow Stool Size Large Moderate Large Stool Color Brown Brown Brown Green Green Stool Consistency Watery Liquid Liquid Loose Watery Loose # Voids 1 1 # Bowel Movements 1 1 Exam: General: Alert, Awake, No acute Distress Eyes/N/T: EOMI, Head/Neck: neck supple, normocephalic atraumatic CV: Mildly tachycardic but regular, No murmurs, normal s1/s2 Pulm: Clear b/l, no wheezing/rhonchi/rales Abd: distended, + bowel sounds, Ext: no clubbing/cyanosis, mild bilateral lower extremity edema Neuro: Alert, no focal deficits, moves all extremities, Skin: warm/dry Medical - PN: Obj Da - Labs CBC & Chem 7: 07/02/18 04:00 07/04/18 09:03 Labs: Abnormal Lab Results 07/04/18 07/04/18 07/04/18 09:03 03:45 03:45 RBC Hgb Hct Lymph % (Auto) Eos % (Auto) Lymph # (Auto) Carbon Dioxide 21 L Glucose 145 H 155 H Uric Acid 2.4 L Calcium 8.1 L 8.0 L Phosphorus 2.6 L Albumin 2.6 L Globulin Albumin/Globulin Ratio 0.8 L Prealbumin 17.9 L Triglycerides 154 H 07/03/18 07/02/18 07/02/18 04:00 07:31 04:00 RBC 4.06 L Hgb 12.3 L Hct 36.7 L Lymph % (Auto) 12.3 L Eos % (Auto) 7.1 H Lymph # (Auto) 1.1 L Carbon Dioxide Glucose 174 H 183 H Uric Acid Calcium 8.5 L 8.1 L Phosphorus 2.0 L Albumin 2.9 L 2.7 L Globulin 3.8 H Albumin/Globulin Ratio 0.8 L 0.8 L Prealbumin Triglycerides 183 H 162 H Meds: Medications Acetaminophen (Tylenol) 650 mg PO Q4-6HP PRN PRN Reason: PAIN/FEVER > 101 Bisacodyl (Dulcolax) 10 mg OK BID [facility] Stop: 07/06/18 20:59 Dextrose (Dextrose 50%) 0 ml IV UD PRN PRN Reason: Hypoglycemia Diagnostic Test (Pha) (Accu-Chek) 1 each FS Q6 [facility] Docusate Sodium (Colace) 100 mg PO BID [facility] Enoxaparin Sodium (Lovenox) 100 mg SQ BID [facility] Glucose (Insta-Glucose) 15 gm PO PRN PRN PRN Reason: Hypoglycemia Heparin Sodium (Porcine) (Heparin Flush) 2 ml IV Q12 [facility] Hydralazine HCl (Apresoline) 10 mg IV Q4-6HP PRN PRN Reason: Hypertension Hydromorphone HCl (Dilaudid) 0.5 mg IV Q2HP PRN PRN Reason: PAIN LEVEL > 6 Lactated Ringer's (Lactated Ringers) 1,000 mls @ 75 mls/hr IV .[id number] [facility] Stop: 07/06/18 08:44 Piperacillin Sod/Tazobactam (Sod 3.375 gm/ Dextrose) 50 mls @ 100 mls/hr IV Q6H [facility] Insulin Human Lispro (Humalog) 0 unit SQ Q6 [facility]; Protocol Multivitamins (Thera-Plus) 5 ml PT DAILY [facility] Ondansetron HCl (Zofran) 4 mg IV Q6HP PRN PRN Reason: Nausea And Vomiting Pantoprazole Sodium (Protonix) 40 mg IV BIDAC [facility] Sodium Biphosphate/Sodium Phosphate (Fleets Adult) 1 dose OK Q3-4DAYS PRN PRN Reason: Constipation Sodium Chloride (Saline Flush) 10 ml IV UD PRN PRN Reason: FLUSH Sodium Chloride (Saline Flush) 10 ml IV Q12 [facility] Medical - PN: A/P - Time Spent With Patient Total time spent is greater than 50% in coordination of care (as documented) at patient's floor/unit and/or counseling patient: - Narrative A/P Narrative: A: *Acute Pulmonary emboli, right side, provoked, s/p surgery: *Acute appendicitis with perforation and generalized peritonitis: s/p lap appy ( 06/25) *Atelectasis: *Ileus and subsequent SBO: *Hypoxia: now on room air *Electrolyte abnormality: * P: -Therapeutic Lovenox for now with eventual transition to likely NOAC -O2 support and wean down -IS -Ambulation -replete electrolytes -TPN per surgery -ppx: lovenox Medical - PN: Qual - VTE Deep Vein Thrombosis/Pulmonary Embolism Present on Admission: No
[2018-07-04] MEDS ORDERED: INSULIN LISPRO 1 UNIT/0.01 ML UNIT SQ SCH (18:00)
[2018-07-05] MEDS: LACTATED RINGERS 1,000 ML IV SCH (04:08)
[2018-07-05] MEDS: PIPERACILLIN SODIUM/TAZOBACTAM 3.375 GM in DEXTROSE 5% IN WATER 50 ML IV SCH ×4 (05:13→23:32)
[2018-07-05 05:31] LABS: ALT/SGPT 28 U/l (0-40); Albumin 2.9 gm/dL (3.2-5.2); Albumin/Globulin Ratio 0.9 (1.0-2.3); Alkaline Phosphatase 47 U/L (39-117); Bilirubin,Direct < 0.2 mg/dL (0.0-0.3); Blood Urea Nitrogen 11 mg/dl (8-23); Gamma Glutamyl Transpeptidase 46 U/L (8-61); Uric Acid 2.5 mg/dL (2.5-8.0)
--- NOTE | 2018-07-05 07:52 | Internal Med Progress Note ---
Medical - PN: Subj Patient information: Note initiated : 07/05/18 at 7:50 am Service Date, if different from initiated Date: [] Patient: Wesley Villeda a 67 y/o M admitted on 06/25/18 for Laparoscopic Appendectomy Possible Open. Chief Complaint: [] Interval history: marlene Villeda is a 67 year old M Who presented with abdominal pain with associated nausea vomiting on the and found to have acute appendicitis. He had surgery the same day and underwent laparoscopic appendectomy and found to have a perforated appendicitis Intra-Op with generalized peritonitis. Postoperatively his bowels are slow to function and having urinary retention thus a Hogue was placed. He has been belching but has not been having any bowel movements or flatus. The he reported some mild shortness of breath but otherwise no new complaints. Later in the day nurse noticed him to be more labored on room air even though the patient did not particularly feel short of breath. His vital signs are taken as oxygen saturation was 88% on room air. Stat CTA of the chest was done which showed scattered pulmonary emboli in the right upper lobe. His heart rate remains in the 90s which is what he's typically been since he is been here. Blood pressure remained stable. The CTA report no cardiac strain. Patient will be moved to the unit for close monitoring and placed on therapeutic Lovenox. In speaking with the patient he denies any shortness of breath at this time and is without chest pain. He has some mild abdominal pain over the incision site but otherwise no other complaints. No coughing. 06/28 Nausea vomitus morning. NG placed with good output. No chest pain or shortness of breath. high O2 sats on 3L's. 06/29 Patient seen examined, no acute overnight issues, NG still in place, had BM today NO acute complaints reported. 06/30 Pt seen examined, no acute overnight issues, NG tube in place complains of abdominal pain. No chest pain or shortness of breath was a bit drowsy, had received pain medication before my visit. 07/01 pt seen examined, no acute oernight issues, WBC better CT shows SBO partial, PICC to be placed, TPN to be started atelectasis noted, start on acapella 07/02 Pt seen examined, still has abdominal pain no bowel movements, X ray shows ileus./ sbo surgery following. labs stable 07/03 Pt seen examined, abdominal pain present, but no new compalints has had BM overnight and this AM, SBO reviewed, bowel tones present today hemodynamically stable, labs stable. 07/04 Patient seen examined, no acute issues NG in place, but tolerating po diet now Bowels moving pain still there in the abdomen, hemodynamically stable, labs stable TPN ongoing. 07/05 Patient states having bowel movements. Still having some pain in the abdomen. No other complaints Review of Systems: denies headache/fever/chills/nausea/vomiting/chest pain/cough/dyspnea/diarrhea. Otherwise see above. - Constitutional Vitals: Vital Signs Temp Pulse Resp BP Pulse Ox 97.8 F 70 18 125/76 95 07/05/18 07:38 07/05/18 07:38 07/05/18 07:38 07/05/18 07:38 07/05/18 07:38 Period Temp Pulse Resp BP Sys/Boudreaux Pulse Ox Last 24 Hr 97.8 F-99.0 F 70-75 12-20 117-151/69-79 95-98 Intake and Output 07/04/18 07/05/18 07/05/18 21:59 05:59 13:59 Intake Total 1530 / 1530 997 / 997 Output Total 754 / 754 775 / 775 Balance 776 / 776 222 / 222 Weight 105.007 kg Intake & Output: Intake & Output 07/04/18 07/05/18 07/05/18 21:59 05:59 13:59 Intake Total 1530 / 1530 997 / 997 Output Total 754 / 754 775 / 775 Balance 776 / 776 222 / 222 Weight 105.007 kg Intake: IV 1050 / 1050 997 / 997 Lactated Ringers 1,000 ml @ 75 947 / 947 mls/hr IV .[id number] [facility] Rx#: [id number] Zosyn 3.375 gm In Dextrose 5% 50 / 50 50 / 50 in Water 50 ml @ 100 mls/hr IV Q6H [facility] Rx#:[id number] Oral 480 / 480 0 / 0 Output: Drainage 3 / 3 0 / 0 Right Lower Abdomen 3 / 3 0 / 0 # of times incontinent of urine 1 / Urine/Stool Mix 775 / 775 Stool 750 / 750 Other: Meal Dinner Percent of Meal Consumed 100% Feeding Ability Independent Stool Size Moderate Stool Color Green Green Stool Consistency Liquid Watery # Voids 1 # Bowel Movements 1 # of times incontinent of 1 Bowels Exam: General: Alert, Awake, No acute Distress Eyes/N/T: EOMI, Head/Neck: neck supple, normocephalic atraumatic CV: RRR, No murmurs, Pulm: Clear b/l, no wheezing/rhonchi/rales Abd: distended, + bowel sounds, Ext: no clubbing/cyanosis, trace bilateral lower extremity edema Neuro: Alert, no focal deficits, moves all extremities, Skin: warm/dry Medical - PN: Obj Da - Labs CBC & Chem 7: 07/02/18 04:00 07/05/18 04:00 Labs: Abnormal Lab Results 07/05/18 07/04/18 07/04/18 04:00 09:03 03:45 Carbon Dioxide 21 L Glucose 116 H 145 H 155 H Uric Acid 2.4 L Calcium 8.1 L 8.1 L 8.0 L Phosphorus 2.5 L 2.6 L Albumin 2.9 L 2.6 L Globulin Albumin/Globulin Ratio 0.9 L 0.8 L Prealbumin Triglycerides 174 H 154 H 07/04/18 07/03/18 07/02/18 03:45 04:00 07:31 Carbon Dioxide Glucose 174 H 183 H Uric Acid Calcium 8.5 L 8.1 L Phosphorus 2.0 L Albumin 2.9 L 2.7 L Globulin 3.8 H Albumin/Globulin Ratio 0.8 L 0.8 L Prealbumin 17.9 L Triglycerides 183 H 162 H Meds: Medications Acetaminophen (Tylenol) 650 mg PO Q4-6HP PRN PRN Reason: PAIN/FEVER > 101 Bisacodyl (Dulcolax) 10 mg DE BID [facility] Stop: 07/06/18 20:59 Last Admin: 07/04/18 20:34 Dose: 10 mg Dextrose (Dextrose 50%) 0 ml IV UD PRN PRN Reason: Hypoglycemia Docusate Sodium (Colace) 100 mg PO BID [facility] Last Admin: 07/04/18 20:34 Dose: 100 mg Enoxaparin Sodium (Lovenox) 100 mg SQ BID [facility] Last Admin: 12/29/18 20:35 Dose: 100 mg Glucose (Insta-Glucose) 15 gm PO PRN PRN PRN Reason: Hypoglycemia Heparin Sodium (Porcine) (Heparin Flush) 2 ml IV Q12 [facility] Last Admin: 07/04/18 20:34 Dose: 2 ml Hydralazine HCl (Apresoline) 10 mg IV Q4-6HP PRN PRN Reason: Hypertension Hydromorphone HCl (Dilaudid) 0.5 mg IV Q2HP PRN PRN Reason: PAIN LEVEL > 6 Last Admin: 07/05/18 04:46 Dose: 0.5 mg Lactated Ringer's (Lactated Ringers) 1,000 mls @ 75 mls/hr IV .[id number] [facility] Stop: 07/06/18 08:44 Last Admin: 07/05/18 04:08 Dose: 75 mls/hr Piperacillin Sod/Tazobactam (Sod 3.375 gm/ Dextrose) 50 mls @ 100 mls/hr IV Q6H [facility] Last Admin: 07/05/18 05:13 Dose: 100 mls/hr Multivitamins (Thera-Plus) 5 ml PT DAILY [facility] Ondansetron HCl (Zofran) 4 mg IV Q6HP PRN PRN Reason: Nausea And Vomiting Pantoprazole Sodium (Protonix) 40 mg IV BIDAC [facility] Last Admin: 07/04/18 17:18 Dose: 40 mg Sodium Biphosphate/Sodium Phosphate (Fleets Adult) 1 dose DE Q3-4DAYS PRN PRN Reason: Constipation Sodium Chloride (Saline Flush) 10 ml IV UD PRN PRN Reason: FLUSH Sodium Chloride (Saline Flush) 10 ml IV Q12 [facility] Last Admin: 07/04/18 20:35 Dose: 10 ml Medical - PN: A/P - Time Spent With Patient Total time spent is greater than 50% in coordination of care (as documented) at patient's floor/unit and/or counseling patient: - Narrative A/P Narrative: A: *Acute Pulmonary emboli, right side, provoked, s/p surgery: *Acute appendicitis with perforation and generalized peritonitis: s/p lap appy ( 06/25) *Atelectasis: *Ileus and subsequent SBO: *Hypoxia: now on room air *Electrolyte abnormality: * P: -Therapeutic Lovenox for now with eventual transition to likely NOAC -O2 support prn -IS -Ambulation -replete electrolytes -TPN per surgery -ppx: [facility] - PN: Qual - VTE Deep Vein Thrombosis/Pulmonary Embolism Present on Admission: No
[2018-07-05] MEDS: PANTOPRAZOLE 40 MG VIAL IV SCH (08:53)
[2018-07-05] MEDS: DOCUSATE SODIUM 100 MG CAPSULE PO SCH ×2 (08:53→21:09)
[2018-07-05] MEDS: ENOXAPARIN 100 MG/ML SYRINGE SQ SCH (08:53)
[2018-07-05] MEDS: BISACODYL 10 MG SUPP.RECT PR SCH ×3 (08:53→21:09)
[2018-07-05] MEDS: 0.9 % SODIUM CHLORIDE 10 ML SYRINGE IV SCH ×2 (08:54→21:10)
[2018-07-05] MEDS ORDERED: MULTIVITAMINS,THERAPEUTIC 1 ML ORAL.SOL PT SCH (09:00)
[2018-07-05] MEDS ORDERED: LACTATED RINGERS 1,000 ML IV SCH (10:00)
[2018-07-05] MEDS ORDERED: MULTIVIT,THER IRON,CA,FA & MIN 1 TABLET PO ONE (10:01)
--- NOTE | 2018-07-05 10:13 | General Surgery Progress Note ---
Subjective Patient reports: no new complaints (Seen at bedside. Ambulating well. tolerating diet. CECILIA drain with serous output. No overnight events.) Narrative: Note initiated : 07/05/18 at 10:10 am Service Date, if different from initiated Date: [] Patient: Wesley Villeda 67 y/o M admitted on 06/25/18 for Laparoscopic Appendectomy Possible Open. Chief Complaint: [] Pertinent ROS: Denies N/V/D, no F/C/NS, No SOB or CP, minimal abdominal pain at incision sites Objective Temp Pulse Resp BP Pulse Ox 97.8 F 70 18 125/76 95 07/05/18 07:38 07/05/18 07:38 07/05/18 07:38 07/05/18 07:38 07/05/18 07:38 - Additional Data Intake & Output - Last 24 hours: Intake & Output 07/03/18 07/04/18 07/05/18 07/06/18 05:59 05:59 05:59 05:59 Intake Total 1549.2526 / 1549.2526 4868.3436 / 4868.3436 4091 / 4091 Output Total 6095 / 6095 1920 / 1920 2479 / 2479 Balance -4545.7474 / -4545.7474 2948.3436 / 2948.3436 1612 / 1612 Weight 232 lb 9.6 oz 229 lb 11.2 oz 231 lb 8 oz - General physical appearance well developed, well nourished, no distress - Eyes normal ocular movement - ENT normal mucosa - Neck trachea midline - Respiratory clear to auscultation - Cardiovascular Cardiovascular exam: Present: normal rate and rhythm - Abdomen soft (NTTP, No rebound or guarding, surgical sites and CECILIA drain no erythema.) - Integumentary no rash - Psychiatric oriented to time, oriented to person, oriented to place - Labs 07/02/18 04:00 07/05/18 04:00 Diabetes panel 07/05/18 Range/Units 04:00 Sodium 139 (133-145) mmol/L Potassium 3.8 (3.3-5.1) mmol/L Chloride 107 (96-108) mmol/L Carbon Dioxide 22 (22-30) mmol/L BUN 11 (8-23) mg/dl Creatinine 0.9 (0.7-1.2) mg/dl Glucose 116 H (70-105) mg/dL Calcium 8.1 L (8.6-10.4) mg/dl AST 18 (0-37) U/l ALT 28 (0-40) U/l Alkaline Phosphatase 47 (39-117) U/L Total Protein 6.2 (5.9-8.4) gm/dL Albumin 2.9 L (3.2-5.2) gm/dL Triglycerides 174 H (<150) mg/dl Calcium panel 07/05/18 Range/Units 04:00 Calcium 8.1 L (8.6-10.4) mg/dl Phosphorus 2.5 L (2.7-4.5) mg/dL Albumin 2.9 L (3.2-5.2) gm/dL Pituitary panel 07/05/18 Range/Units 04:00 Sodium 139 (133-145) mmol/L Potassium 3.8 (3.3-5.1) mmol/L Chloride 107 (96-108) mmol/L Carbon Dioxide 22 (22-30) mmol/L BUN 11 (8-23) mg/dl Creatinine 0.9 (0.7-1.2) mg/dl Glucose 116 H (70-105) mg/dL Calcium 8.1 L (8.6-10.4) mg/dl Adrenal panel 07/05/18 Range/Units 04:00 Sodium 139 (133-145) mmol/L Potassium 3.8 (3.3-5.1) mmol/L Chloride 107 (96-108) mmol/L Carbon Dioxide 22 (22-30) mmol/L BUN 11 (8-23) mg/dl Creatinine 0.9 (0.7-1.2) mg/dl Glucose 116 H (70-105) mg/dL Calcium 8.1 L (8.6-10.4) mg/dl Total Bilirubin 0.4 (0.0-1.0) mg/dL AST 18 (0-37) U/l ALT 28 (0-40) U/l Alkaline Phosphatase 47 (39-117) U/L Total Protein 6.2 (5.9-8.4) gm/dL Albumin 2.9 L (3.2-5.2) gm/dL Assessment and Plan (1) Acute appendicitis with perforation and generalized peritonitis Status: Acute Current Visit: Yes (2) Acute appendicitis Status: Acute Current Visit: Yes (3) Pulmonary embolism Status: Acute Current Visit: Yes (4) Hyperglycemia Status: Acute Current Visit: Yes - Narrative A/P Narrative: 67 yo male POD#10 for laparoscopic appendectomy for perforated appendicitis with generalized peritonitis, found to have segmental pulmonary embolism has been on therapeutic Lovenox, Ileus resolved. Patient tolerating diet having BM's IV fluids TKO Continue current abx. Continue oral pain control, and Lovenox Will discuss with Medical team possible bridge oral anticoagulants. Social work on case appreciated. Discharge planning - Time Spent With Patient Total time spent is greater than 50% in coordination of care (as documented) at patient's floor/unit and/or counseling patient:
[2018-07-05] MEDS: IBUPROFEN 200 MG TABLET PO SCH ×3 (14:14→23:32)
[2018-07-05] MEDS: PHOSPHORUS 250 MG TABLET PO SCH ×2 (16:42→21:10)
[2018-07-05] MEDS ORDERED: 0.9 % SODIUM CHLORIDE 500 ML IV SCH (20:30)
[2018-07-05] MEDS: APIXABAN 2.5 MG TABLET PO SCH (21:09)
[2018-07-06] MEDS: HYDROcodone/APAP 5/325MG TABLET PO PRN ×2 (04:12→11:38)
[2018-07-06] MEDS: IBUPROFEN 200 MG TABLET PO SCH ×2 (05:49→11:38)
[2018-07-06] MEDS: PIPERACILLIN SODIUM/TAZOBACTAM 3.375 GM in DEXTROSE 5% IN WATER 50 ML IV SCH (05:49)
[2018-07-06 06:03] LABS: Basophils # (Auto) 0 K/mcL (0.0-0.3); Basophils % (Auto) 0.5 % (0.0-2.0); Eosinophils # (Auto) 0.2 K/mcL (0.0-0.7); Eosinophils % (Auto) 2.6 % (0.0-7.0); Granulocytes % (Auto) 78.4 % (38.0-78.0); Lymphocytes # (Auto) 1.2 K/mcL (1.5-4.8); Lymphocytes % (Auto) 13.2 % (15.5-49.0); Mean Corpuscular HGB Conc 34.1 g/dL (31.0-36.0); Monocytes # (Auto) 0.5 K/mcL (0.1-0.9); Monocytes % (Auto) 5.3 % (1.0-12.0); Platelet Count 287 K/mcL (140-440); RBC 3.71 M/mcL (4.50-5.90); Red Cell Distribution Width 13.7 % (11.5-14.5)
[2018-07-06 06:30] LABS: Blood Urea Nitrogen 14 mg/dl (8-23)
--- NOTE | 2018-07-06 07:37 | Internal Med Progress Note ---
Medical - PN: Subj Patient information: Note initiated : 07/06/18 at 7:36 am Service Date, if different from initiated Date: [] Patient: Wesley Villeda a 67 y/o M admitted on 06/25/18 for Laparoscopic Appendectomy Possible Open. Chief Complaint: [] Interval history: marlene Villeda is a 67 year old M Who presented with abdominal pain with associated nausea vomiting on the and found to have acute appendicitis. He had surgery the same day and underwent laparoscopic appendectomy and found to have a perforated appendicitis Intra-Op with generalized peritonitis. Postoperatively his bowels are slow to function and having urinary retention thus a [place] was placed. He has been belching but has not been having any bowel movements or flatus. The he reported some mild shortness of breath but otherwise no new complaints. Later in the day nurse noticed him to be more labored on room air even though the patient did not particularly feel short of breath. His vital signs are taken as oxygen saturation was 88% on room air. Stat CTA of the chest was done which showed scattered pulmonary emboli in the right upper lobe. His heart rate remains in the 90s which is what he's typically been since he is been here. Blood pressure remained stable. The CTA report no cardiac strain. Patient will be moved to the unit for close monitoring and placed on therapeutic Lovenox. In speaking with the patient he denies any shortness of breath at this time and is without chest pain. He has some mild abdominal pain over the incision site but otherwise no other complaints. No coughing. 06/28 Nausea vomitus morning. NG placed with good output. No chest pain or shortness of breath. high O2 sats on 3L's. 06/29 Patient seen examined, no acute overnight issues, NG still in place, had BM today NO acute complaints reported. 06/30 Pt seen examined, no acute overnight issues, NG tube in place complains of abdominal pain. No chest pain or shortness of breath was a bit drowsy, had received pain medication before my visit. 07/01 pt seen examined, no acute oernight issues, WBC better CT shows SBO partial, PICC to be placed, TPN to be started atelectasis noted, start on acapella 07/02 Pt seen examined, still has abdominal pain no bowel movements, X ray shows ileus./ sbo surgery following. labs stable 07/03 Pt seen examined, abdominal pain present, but no new compalints has had BM overnight and this AM, SBO reviewed, bowel tones present today hemodynamically stable, labs stable. 07/04 Patient seen examined, no acute issues NG in place, but tolerating po diet now Bowels moving pain still there in the abdomen, hemodynamically stable, labs stable TPN ongoing. 07/05 Patient states having bowel movements. Still having some pain in the abdomen. No other complaints 07/06 Slept well no complaints. Okay sleep. No chest pain or shortness of breath. Review of Systems: denies headache/fever/chills/nausea/vomiting/chest pain/cough/dyspnea/diarrhea. Otherwise see above. - Constitutional Vitals: Vital Signs Temp Pulse Resp BP Pulse Ox 97.4 F 68 18 116/70 97 07/06/18 07:13 07/06/18 04:00 07/06/18 07:13 07/06/18 07:13 07/06/18 07:13 Period Temp Pulse Resp BP Sys/[place] Pulse Ox Last 24 Hr 97.4 F-98.9 F 68-76 12- 115-130/70-77 94-98 Intake and Output 07/05/18 07/06/18 07/06/18 21:59 05:59 13:59 Intake Total 540 / 540 450 / 450 Output Total 181 / 181 Balance 359 / 359 435 / 435 Weight 102.512 kg Intake & Output: Intake & Output 07/05/18 07/06/18 07/06/18 21:59 05:59 13:59 Intake Total 540 / 540 450 / 450 Output Total 181 / 181 Balance 359 / 359 435 / 435 Weight 102.512 kg Intake: IV 300 / 300 50 / 50 Lactated Ringers 1,000 ml @ 20 250 / 250 mls/hr IV .Q24H [facility]TE[facility] Rx#: [id number] Zosyn 3.375 gm In Dextrose 5% 50 / 50 50 / 50 in Water 50 ml @ 100 mls/hr IV Q6H [place] Rx#:[id number] Oral 240 / 240 400 / 400 Output: Drainage Right Lower Abdomen Urine Catheter Amount 175 / 175 # of times incontinent of urine Other: Meal Dinner Percent of Meal Consumed 100% Feeding Ability Independent Urine Appearance Clear Urine Color Light Leonie Urine Odor Normal Stool Size Small Stool Color Brown Stool Consistency Loose # Voids 1 # Bowel Movements 1 # of times incontinent of 1 Bowels Exam: General: Alert, Awake, No acute Distress Eyes/N/T: EOMI, Head/Neck: neck supple, normocephalic atraumatic CV: RRR, Normal s1/s2 Pulm: Clear b/l, no wheezing/rhonchi/rales Abd: distended, + bowel sounds, Ext: no clubbing/cyanosis/edema Neuro: Alert, no focal deficits, moves all extremities, Skin: warm/dry Medical - PN: Obj Da - Labs CBC & Chem 7: 07/06/18 04:00 07/06/18 04:00 Labs: Abnormal Lab Results 07/06/18 07/06/18 07/05/18 04:00 04:00 04:00 RBC 3.71 L Hgb 11.3 L Hct 33.0 L Gran % 78.4 H Lymph % (Auto) 13.2 L Lymph # (Auto) 1.2 L Carbon Dioxide Glucose 106 H 116 H Uric Acid Calcium 8.4 L 8.1 L Phosphorus 2.5 L Albumin 2.9 L Albumin/Globulin Ratio 0.9 L Prealbumin Triglycerides 174 H 07/04/18 07/04/18 07/04/18 09:03 03:45 03:45 RBC Hgb Hct Gran % Lymph % (Auto) Lymph # (Auto) Carbon Dioxide 21 L Glucose 145 H 155 H Uric Acid 2.4 L Calcium 8.1 L 8.0 L Phosphorus 2.6 L Albumin 2.6 L Albumin/Globulin Ratio 0.8 L Prealbumin 17.9 L Triglycerides 154 H Meds: Medications Acetaminophen (Tylenol) 650 mg PO Q4-6HP PRN PRN Reason: PAIN/FEVER > 101 Hydrocodone Bitart/Acetaminophen ([place] 5/325mg) 1 tab PO Q6HP PRN PRN Reason: PAIN LEVEL 3-6 Last Admin: 07/06/18 04:12 Dose: 1 tab Apixaban (Eliquis) 5 mg PO BID [facility] Last Admin: 07/05/18 21:09 Dose: 5 mg Bisacodyl (Dulcolax) 10 mg TN BID [facility] Stop: 07/06/18 20:59 Last Admin: 07/05/18 21:09 Dose: Not Given Dextrose (Dextrose 50%) 0 ml IV UD PRN PRN Reason: Hypoglycemia Docusate Sodium (Colace) 100 mg PO BID [facility] Last Admin: 07/05/18 21:09 Dose: Not Given Glucose (Insta-Glucose) 15 gm PO PRN PRN PRN Reason: Hypoglycemia Heparin Sodium (Porcine) (Heparin Flush) 2 ml IV Q12 [facility] Last Admin: 07/05/18 21:09 Dose: 2 ml Hydralazine HCl (Apresoline) 10 mg IV Q4-6HP PRN PRN Reason: Hypertension Piperacillin Sod/Tazobactam (Sod 3.375 gm/ Dextrose) 50 mls @ 100 mls/hr IV Q6H [facility] Last Admin: 07/06/18 05:49 Dose: 100 mls/hr Sodium Chloride (Sodium Chloride 0.9%) 500 mls @ 20 mls/hr IV .Q24H [facility] Last Admin: 07/05/18 21:08 Dose: 20 mls/hr Ibuprofen (Motrin) 400 mg PO Q6 [facility] Stop: 07/08/18 11:59 Last Admin: 07/06/18 05:49 Dose: 400 mg Ondansetron HCl (Zofran) 4 mg IV Q6HP PRN PRN Reason: Nausea And Vomiting Sodium Biphosphate/Sodium Phosphate (Fleets Adult) 1 dose TN Q3-4DAYS PRN PRN Reason: Constipation Sodium Chloride (Saline Flush) 10 ml IV UD PRN PRN Reason: FLUSH Sodium Chloride (Saline Flush) 10 ml IV Q12 [facility] Last Admin: 07/05/18 21:10 Dose: 10 ml Medical - PN: A/P - Time Spent With Patient Total time spent is greater than 50% in coordination of care (as documented) at patient's floor/unit and/or counseling patient: - Narrative A/P Narrative: A: *Acute Pulmonary emboli, right side, provoked, s/p surgery: *Acute appendicitis with perforation and generalized peritonitis: s/p lap appy ( 06/25) *Atelectasis: *Ileus: improved *Hypoxia: now on room air *Electrolyte abnormality: * P: -Therapeutic Lovenox transitioned to eliquis -IS -Ambulation -replete electrolytes prn -ppx: lovenox Medical - PN: Qual - VTE Deep Vein Thrombosis/Pulmonary Embolism Present on Admission: No
[2018-07-06] MEDS: DOCUSATE SODIUM 100 MG CAPSULE PO SCH (09:18)
[2018-07-06] MEDS: BISACODYL 10 MG SUPP.RECT PR SCH (09:18)
[2018-07-06] MEDS: APIXABAN 2.5 MG TABLET PO SCH (09:18)
[2018-07-06] MEDS: 0.9 % SODIUM CHLORIDE 10 ML SYRINGE IV SCH (09:19)
--- NOTE | 2018-07-06 11:41 | General Surgery Progress Note ---
Subjective Patient reports: no new complaints (Patient seen at bedside. No overnight events. Tolerating diet. Having BM's, minimal abdominal discomfort) Narrative: Note initiated : 07/06/18 at 11:37 am Service Date, if different from initiated Date: [] Patient: Wesley Villeda 67 y/o M admitted on 06/25/18 for Laparoscopic Appendectomy Possible Open. Chief Complaint: [] Pertinent ROS: No N/V/D, No F/C/NS, No SOB or CP Objective Temp Pulse Resp BP Pulse Ox 97.4 F 68 18 116/70 97 07/06/18 07:13 07/06/18 04:00 07/06/18 07:13 07/06/18 07:13 07/06/18 07:13 - Additional Data Intake & Output - Last 24 hours: Intake & Output 07/04/18 07/05/18 07/06/18 07/07/18 05:59 05:59 05:59 05:59 Intake Total 4868.3436 / 4868.3436 4091 / 4091 1040 / 1040 Output Total 1920 / 1920 2479 / 2479 196 / 196 Balance 2948.3436 / 2948.3436 1612 / 1612 844 / 844 Weight 229 lb 11.2 oz 231 lb 8 oz 226 lb - General physical appearance no distress - Eyes normal ocular movement - ENT normal mucosa - Respiratory clear to auscultation - Cardiovascular Cardiovascular exam: Present: normal rate and rhythm - Abdomen soft (Soft, NTTP No rebound or guarding. Surgical site no erythema. CECILIA removed. [place] removed. Steristrips placed.) - Psychiatric oriented to time, oriented to person, oriented to place - Additional Exam No LE pain B/L - Labs 07/06/18 04:00 07/06/18 04:00 Diabetes panel 07/06/18 Range/Units 04:00 Sodium 142 (133-145) mmol/L Potassium 3.6 (3.3-5.1) mmol/L Chloride 107 (96-108) mmol/L Carbon Dioxide 25 (22-30) mmol/L BUN 14 (8-23) mg/dl Creatinine 0.9 (0.7-1.2) mg/dl Glucose 106 H (70-105) mg/dL Calcium 8.4 L (8.6-10.4) mg/dl Calcium panel 07/06/18 Range/Units 04:00 Calcium 8.4 L (8.6-10.4) mg/dl Phosphorus 2.9 (2.7-4.5) mg/dL Pituitary panel 07/06/18 Range/Units 04:00 Sodium 142 (133-145) mmol/L Potassium 3.6 (3.3-5.1) mmol/L Chloride 107 (96-108) mmol/L Carbon Dioxide 25 (22-30) mmol/L BUN 14 (8-23) mg/dl Creatinine 0.9 (0.7-1.2) mg/dl Glucose 106 H (70-105) mg/dL Calcium 8.4 L (8.6-10.4) mg/dl Adrenal panel 07/06/18 Range/Units 04:00 Sodium 142 (133-145) mmol/L Potassium 3.6 (3.3-5.1) mmol/L Chloride 107 (96-108) mmol/L Carbon Dioxide 25 (22-30) mmol/L BUN 14 (8-23) mg/dl Creatinine 0.9 (0.7-1.2) mg/dl Glucose 106 H (70-105) mg/dL Calcium 8.4 L (8.6-10.4) mg/dl Assessment and Plan (1) Acute appendicitis with perforation and generalized peritonitis Status: Acute Current Visit: Yes (2) Acute appendicitis Status: Acute Current Visit: Yes (3) Pulmonary embolism Status: Acute Current Visit: Yes (4) Hyperglycemia Status: Acute Current Visit: Yes (5) Postoperative ileus Status: Acute Current Visit: Yes - Narrative A/P Narrative: A/P Narrative: 67 yo male POD#11for laparoscopic appendectomy for perforated appendicitis with generalized peritonitis, found to have segmental pulmonary embolism has been on therapeutic Lovenox, Ileus resolved. Patient tolerating diet & ambulating with assistance. CECILIA And PICC line d/c'd ABX DC'd Continue Eliquis & incentive spirometer Continue pain medications prn Continue PT, soft diet with nutritional supplementation Hospitalist on case appreciated. Discharge planning - Time Spent With Patient Total time spent is greater than 50% in coordination of care (as documented) at patient's floor/unit and/or counseling patient:
--- NOTE | 2018-07-06 11:55 | Discharge Plan ---
Discharge Plan - Patient/Caregiver Discharge Instructions Discharge Summary: Consults: Hospitalist service Procedures: Laparoscopic appendectomy Hospital Course: 67 yo male presented to the ED 06/25/18 with severe right lower quadrant pain and a wbc of 20.6 thousand, and found to have acute appendicitis with appendicoliths on CT scan. He was admitted to surgical service, started on Zosyn , given IV pain medication and IV hydration and underwent an uneventful laparoscopic appendectomy same day. The operation elucidated that the patient had a severe generalized inflamed peritonitis and a perforated appendix without any gross abscess noted, a CECILIA drain was placed. Postoperatively he was continued on antibiotics & DVT prophylaxis. Despite being on prophylactic Lovenox, on postoperative day #2 he had an episode of oxygen desaturation which prompted a workup with CT angiogram showing a right upper lobe segmental pulmonary embolism. He was transferred to the ICU. Hospitalists were consulted and he was placed on therapeutic Lovenox and later switched to Eliquis when he was able to take PO. Upon admission, he had hyperglycemia which was addressed with finger stick blood sugar & sliding scale insulin. His HGBA1C was found to be 5.4. Given the Peritonitis and pulmonary embolism, a prolonged Ileus presented with ng tube continued, he was started on TPN with PICC line placement on postoperative day #7 and the Ileus began resolving around postoperative day # 9. TPN was weaned off, and he began slowly to have normal BM. He was transferred to telemetry and then to a regular med/surg nick. He was able to ambulate and working with Physical Therapy and tolerating diet. Drains were removed, PICC line and [place] n[place] removed. He was discharged to a rehab facility in stable condition. Diet: Regular Diet (Soft diet) Additional Instructions: Patient will need to follow up with a primary care provider for [facility] management of anticoagulation. Prescriptions: Acetaminophen [Tylenol] 650 mg PO Q6HP PRN #60 tablet PRN Reason: Pain/Fever > 101 Apixaban [Eliquis] 5 mg PO BID #60 tab Docusate Sodium [Colace] 100 mg PO BID PRN #30 capsule PRN Reason: Constipation HYDROcodone/APAP 5/325MG [[place] 5-325Mg] 1 tab PO Q6HP PRN #15 tablet MDD 4 tabs PRN Reason: pain>5 Ibuprofen [Motrin] 400 mg PO Q6 PRN #60 tablet PRN Reason: mild to moderate pain 1 to 5 Ondansetron HCl [Zofran ODT] 4 mg SL Q6HP PRN #12 tablet PRN Reason: Nausea And Vomiting - Follow up Plan Follow up with: No,PCP [Primary Care Provider] - Bryan Lan MD [Physician] - (follow up in 2 weeks) Disposition: Xfer SNF Prognosis: Good Rehab Potential: Good I certify that the patient requires SNF services.: Yes (strength training) Overall status at discharge: patient is progressing back to baseline
[2018-07-06] MEDS ORDERED: PNEUMOCOCCAL 23-VAL P-SAC VAC 0.5 ML SYRINGE IM ONE (14:45)
== END 2018-07-06 14:50 | DRG 341 ==
LOC: MEDSUR 02:51 → ED 02:51 → SUR 08:14 → ED 08:15 → MEDSUR 08:15 → ICU 06-27 23:27 → MEDSUR 07-04 15:53
PROVIDERS: ADMIT Surgery; ATTEND Surgery
PROC: LAPAPPY (ICD-10-PCS; 2018-06-25 11:45)